=== PATIENT | male | born 1950 | race Caucasian/White ===

== ENCOUNTER 2018-07-13 12:07 | Inpatient (IN) | payer OTHER ==
--- NOTE | 2018-07-13 12:17 | PDOC ---
History of Present Illness <Jazmin Raymond - Last Filed: 07/13/18 14:03> - History of Present Illness Initial Comments: This patient is a 68 year old male, with PMHx of HTN, depression, hypothyroidism ,enlarged prostate, who was BIBA from [facility] for failure to thrive and g- tube replacement. Patient is cachectic and able to say one word and follow simple commands. Allergies: NKA PCP: Davis Sanchez (admits to Brock/Susan) <Karin Adame - Last Filed: 07/13/18 14:14> - General Chief Complaint: G Tube Problem Stated Complaint: G-TUBE REPLACEMENT Time Seen by Provider: 07/13/18 12:17 Past History - Past Medical History Anemia: Yes Seizures: Yes (EPILEPSY) - Suicide/Smoking/Psychosocial Hx Smoking Status: No Smoking History: Never smoked Number of Cigarettes Smoked Daily: 0 <Jazmin Raymond - Last Filed: 07/13/18 14:03> <Karin Adame - Last Filed: 07/13/18 14:14> - Past Medical History Allergies/Adverse Reactions: Allergies Allergy/AdvReac Type Severity Reaction Status Date / Time No Known Allergies Allergy Verified 07/13/18 12:20 Home Medications: Ambulatory Orders Aspirin [ASA] 81 mg PO DAILY 11/15/12 Docusate Sodium [Colace] 200 mg PO HS 11/15/12 Phenytoin Na Extended [Dilantin] 200 mg PO HS 11/15/12 Phenytoin Na Extended [Dilantin] 300 mg PO TID 11/15/12 Review of Systems - Review of Systems Able to Perform ROS?: No (unable to obtain) <Karin Adame - Last Filed: 07/13/18 14:14> *Physical Exam - Vital Signs Last Vital Signs Temp Pulse Resp BP Pulse Ox 98.2 F 80 16 127/68 100 07/13/18 12:07 07/13/18 12:07 07/13/18 12:07 07/13/18 12:07 07/13/18 12:07 - Physical Exam Comments: GENERAL: Awake, alert, cachetic. HEAD: No signs of trauma EYES: PERRLA, EOMI, sclera anicteric, conjunctiva clear ENT: Auricles normal inspection, hearing grossly normal, nares patent, oropharynx clear without exudates. Dry mucosa NECK: Normal ROM, supple, no lymphadenopathy, JVD, or masses LUNGS: Breath sounds equal, clear to auscultation bilaterally. No wheezes, and no crackles HEART: Regular rate and rhythm, normal S1 and S2, no murmurs, rubs or gallops ABDOMEN: Soft, nontender, normoactive bowel sounds. No guarding, no rebound. No masses EXTREMITIES: Normal range of motion, edema to hands & feet. No clubbing or cyanosis. No cords, erythema, or tenderness NEUROLOGICAL: Cranial nerves II through XII grossly intact. SKIN: Warm, Dry, normal turgor, no rashes or lesions noted. <Karin Adame - Last Filed: 07/13/18 14:14> Heart Score/ECG Review - ECG Intrepretation Comment:: 07/13/18 14:03 sinus at 95, nl axis, t wave ivnersions V3-4, abnl ekg, baseline artifact <Jazmin Raymond - Last Filed: 07/13/18 14:03> ED Treatment Course - LABORATORY CBC & Chemistry Diagram: 07/13/18 12:40 07/13/18 12:46 <Jazmin Raymond - Last Filed: 07/13/18 14:03> - LABORATORY CBC & Chemistry Diagram: 07/13/18 12:40 07/13/18 12:46 - ADDITIONAL ORDERS Additional order review: Laboratory Results 07/13/18 07/13/18 13:00 12:46 PT with INR 18.00 H INR 1.52 H PTT (Actin FS) 26.9 Urine Color Erica Urine Appearance Clear Urine pH 5.0 Ur Specific [place] 1.027 Urine Protein 1+ H Urine Glucose (UA) Negative Urine Ketones 1+ H Urine Blood Negative Urine Nitrite Negative Urine Bilirubin Negative Urine Urobilinogen 2.0 Ur Leukocyte Esterase Negative Urine WBC (Auto) 5 Urine RBC (Auto) 2 Ur Epithelial Cells Rare Urine Bacteria Rare Hyaline Casts 48 Urine Mucus Few 07/13/18 12:40 RBC 4.12 MCV 92.9 MCHC 32.3 RDW 14.7 MPV 7.3 L Neutrophils % 93.0 H D Lymphocytes % 1.9 L D Monocytes % 4.9 Eosinophils % 0.0 D Basophils % 0.2 - RADIOLOGY Radiograph Interpretation: Chest X-ray Impression: Segment right lower lobe pneumonia No pleural effusion, or pneumothorax is seen. Reported by: Santi Vieira MD 07/13/18 1319 - Medications Given in the ED: ED Medications Discontinued Medications Generic Name Dose Route Start Last Admin Trade Name Babs PRN Reason Stop Dose Admin Sodium Chloride 1,000 ml 07/13/18 12:39 07/13/18 13:00 Normal Saline - IV 07/13/18 12:40 1,000 ml ONCE ONE Administration <Karin Adame - Last Filed: 07/13/18 14:14> Medical Decision Making - Medical Decision Making 07/13/18 12:52 a/p: 68 yo male sent from [facility] for FTT -pt is cachectic -edema to hands and feet -pt dry mm -pt will follow simple commands -sent for G tube placement -per transfer paperwork - pt is a DNR - requested MOLST be sent from [facility] -pt appears dehydrated, weak -sent by Dr. Sanchez for admission - admits to Dr. Antunez 07/13/18 13:59 pt with elevated wbc and RLL pna will start broad spectrum abx will admit will place consult to dr. finney and dr. hurd will admit to dr. antunez - discussed case with dr. antunez <Jazmin Raymond - Last Filed: 07/13/18 14:03> *DC/Admit/Observation/Transfer - Discharge Dispostion Decision to Admit order: Yes - Attestations Physician Attestion: 07/13/18 14:01 I, Dr. Jazmin Raymond DO, attest that this document has been prepared under my direction and personally reviewed by me in its entirety. I further attest, that it accurately reflects all work, treatment, procedures and medical decision -making performed by me. <Jazmin Raymond - Last Filed: 07/13/18 14:03> - Attestations Scribe Attestion: 07/13/18 13:19 Documentation prepared by Karin Adame, acting as medical administrative technician for Jazmin Raymond DO. <Karin Adame - Last Filed: 07/13/18 14:14> Diagnosis at time of Disposition: Pneumonia, Failure to thrive - Discharge Dispostion Condition at time of disposition: Guarded - Referrals Referrals: Davis Sanchez [Primary Care Provider] - - Patient Instructions - Post Discharge Activity
[2018-07-13 12:20] VITALS: BMI 18.2
[2018-07-13] MEDS ORDERED: SODIUM CHLORIDE 0.9% 1000 ML INFUS.BAG IV ONE ×3 (12:39→15:08)
[2018-07-13 12:52] LABS: BASO % 0.2 % (0-2.0); HEMATOCRIT 38.3 % (35.4-49); HEMOGLOBIN 12.4 GM/dL (11.7-16.9); LYMPH % 1.9 % (8-40); MCHC 32.3 g/dl (32.0-35.9); MEAN CELL VOLUME 92.9 fl (80-96); MEAN PLT VOLUME 7.3 fl (7.5-11.1); MONO % 4.9 % (3.8-10.2); PLATELET COUNT 449 K/MM3 (134-434); RBC 4.12 M/mm3 (4.00-5.60); RDW 14.7 % (11.9-15.9)
[2018-07-13 13:08] LABS: INR 1.52 (0.83-1.09)
[2018-07-13 13:09] LABS: URINE APPEARANCE CLEAR; URINE BILIRUBIN NEGATIVE (<2.0 mg/dL); URINE COLOR AMBER; URINE GLUCOSE (UA) NEGATIVE (NEGATIVE); URINE KETONE 1+ (NEGATIVE); URINE LEUK ESTERASE NEGATIVE (NEGATIVE); URINE NITRITE NEGATIVE (NEGATIVE); URINE PROTEIN 1+ (NEGATIVE)
[2018-07-13 13:11] LABS: ACTIVATED PTT 26.9 SECONDS (25.2-36.5)
[2018-07-13 13:12] LABS: EPI CELLS RARE /HPF (FEW); URINE BACTERIA RARE /hpf (NONE SEEN); URINE HYALINE CAST 48 /lpf; URINE MUCUS FEW
[2018-07-13 13:38] LABS: ALBUMIN 2.2 g/dl (3.4-5.0); ALK PHOS 98 U/L (45-117); ANION GAP 11 MMOL/L (8-16); BILIRUBIN,TOTAL 0.7 mg/dL (0.2-1); BLOOD UREA NITROGEN 10 mg/dL (7-18); CALCIUM 8.4 mg/dL (8.5-10.1); CHLORIDE 109 mmol/L (98-107); CO2 27 mmol/L (21-32); CREATININE 0.7 mg/dL (0.55-1.3); GLUCOSE,RANDOM 116 mg/dL (74-106); MAGNESIUM 2.2 mg/dL (1.8-2.4); POTASSIUM 3.6 mmol/L (3.5-5.1); SGOT/AST 14 U/L (15-37); SGPT/ALT 16 U/L (13-61); SODIUM 146 mmol/L (136-145); TOT PROT 6.3 g/dl (6.4-8.2)
[2018-07-13] MEDS ORDERED: VANCOMYCIN 1 GRAM (PRE-DOCKED) 1,000 MG/250 ML BAG IVPB ONE ×2 (13:59→14:27)
[2018-07-13] MEDS ORDERED: PIPERACILLIN/TAZOB 4.5 GM 4.5 GM in DEXTROSE 5%-WATER 100 ML IVPB ONE (13:59)
--- NOTE | 2018-07-13 14:46 | EKG ---
Test Reason : Blood Pressure : / mmHG Vent. Rate : 095 BPM Atrial Rate : 095 BPM P-R Int : 118 ms QRS Dur : 078 ms QT Int : 414 ms P-R-T Axes : 060 071 102 degrees QTc Int : 520 ms POOR DATA QUALITY, INTERPRETATION MAY BE ADVERSELY AFFECTED NORMAL SINUS RHYTHM T WAVE ABNORMALITY, CONSIDER ANTEROLATERAL ISCHEMIA ABNORMAL ECG WHEN COMPARED WITH ECG OF 15-NOV-2012 22:38, QRS DURATION HAS DECREASED NONSPECIFIC T WAVE ABNORMALITY NOW EVIDENT IN INFERIOR LEADS T WAVE INVERSION NOW EVIDENT IN ANTERIOR LEADS QT HAS LENGTHENED Confirmed by MIKA NEWMAN, ALYSSA ([id number]) on 07/13/2018 2:45:53 PM Referred By: Confirmed By:ALYSSA BRENNAN MD
[2018-07-13] MEDS ORDERED: PIPERACILLIN/TAZOB 4.5 GM 4.5 GM/100 ML BAG IVPB ONE (14:53)
--- NOTE | 2018-07-13 15:37 | HP ---
Admitting History and Physical - Primary Care Physician PCP: Yvonne Gutiérrez - Admission Chief Complaint: FAILURE TO THRIVE/WEIGHT LOSS History of Present Illness: 68 Y/O MALE FROM [facility] SENT IN BY DR LEAL FOR WORKUP AND PEG PLACEMENT FOR POOR APPETITE WEIGHT LOSS, AND CHAXEXIA. H/O HTN, HYPOTHYROID, BPH. History Source: Medical Record Limitations to Obtaining History: Clinical Condition - Past Medical History Cardiovascular: Yes: HTN - Smoking History Smoking history: Never smoked Have you smoked in the past 12 months: No Aproximately how many cigarettes per day: 0 - Alcohol/Substance Use Hx Alcohol Use: No Home Medications - Allergies Allergies/Adverse Reactions: Allergies Allergy/AdvReac Type Severity Reaction Status Date / Time No Known Allergies Allergy Verified 07/13/18 12:20 - Home Medications Home Medications: Ambulatory Orders Amlodipine Besylate [Norvasc -] 10 mg PO DAILY 07/13/18 Cholecalciferol (Vitamin D3) [Vitamin D3] 1,000 unit PO DAILY 07/13/18 Megestrol Acetate Oral Susp [Megace Liquid -] 400 mg PO DAILY 07/13/18 Mirtazapine [Remeron -] 45 mg PO HS 07/13/18 Olanzapine [Zyprexa] 5 mg PO HS 07/13/18 Phenytoin Oral Suspension [Dilantin Oral Suspension 100 MG/4 ML] 200 mg PO BID 07/13/18 Risperidone [Risperdal] 1 mg PO DAILY 07/13/18 Review of Systems - Review of Systems Constitutional: reports: Loss of Appetite, Weakness Eyes: reports: No Symptoms HENT: reports: No Symptoms Neck: reports: No Symptoms Cardiovascular: reports: No Symptoms Respiratory: reports: No Symptoms Gastrointestinal: reports: No Symptoms Genitourinary: reports: Incontinence Musculoskeletal: reports: Muscle Weakness Integumentary: reports: Rash Neurological: reports: Confusion, Pre-Existing Deficit Endocrine: reports: Unexplained Weight Loss Hematology/Lymphatic: reports: Other Psychiatric: reports: Other Physical Examination Vital Signs: Vital Signs Temperature 98.6 F 07/13/18 15:24 Pulse Rate 78 07/13/18 15:24 Respiratory Rate 18 07/13/18 15:24 Blood Pressure 121/73 07/13/18 15:24 O2 Sat by Pulse Oximetry (%) 99 07/13/18 15:24 Constitutional: Yes: Cachectic, Mild Distress Eyes: Yes: WNL HENT: Yes: WNL Neck: Yes: WNL Cardiovascular: Yes: WNL Respiratory: Yes: WNL Gastrointestinal: Yes: WNL Renal/: Yes: Incontinence Musculoskeletal: Yes: Muscle Weakness Extremities: Yes: Other Edema: No Peripheral Pulses WNL: Yes Integumentary: Yes: Rash Wound/Incision: Yes: Clean/Dry, Open to air Neurological: Yes: Pre-Existing Deficit ...Motor Strength: LLE, RLE Psychiatric: Yes: Other Labs: CBC, BMP 07/13/18 12:40 07/13/18 12:46 Problem List - Problems (1) Malnutrition Code(s): E46 - UNSPECIFIED PROTEIN-CALORIE MALNUTRITION (2) Failure to thrive Code(s): [id number] - Assessment/Plan SWALLOW EVAL DIETARY CONSULT WITH CALORIE COUNT GI CONSULT NUTRITIONAAL SUPPLEMENTS CHECK CEA/CA19-9 CHECK TSH/FREE T4 DVT PROPHYLAXIS
[2018-07-13] MEDS ORDERED: PNEUMOC 13-VAL CONJ-DIP CRM/PF 0.5 ML DISP.SYRIN IM ONE (17:37)
[2018-07-13] MEDS ORDERED: ACETAMINOPHEN 325 MG TABLET (FP) PO PRN (17:46)
[2018-07-13] MEDS ORDERED: PT OWN MED DRAWER 7, Y5N ONE (21:40)
[2018-07-13] MEDS: PHENYTOIN 100 MG/4 ML U-D CUP PO SCH ×2 (21:43→22:48)
[2018-07-13] MEDS: MIRTAZAPINE 15 MG TABLET (FP) PO SCH ×2 (21:43→22:48)
[2018-07-13] MEDS ORDERED: PHENYTOIN SODIUM 100 MG/2 ML VIAL IVPB ONE (22:45)
[2018-07-13] MEDS: OLANZapine 5 MG TABLET PO SCH (22:48)
[2018-07-14 07:26] LABS: HEMATOCRIT 30.5 % (35.4-49); HEMOGLOBIN 9.9 GM/dL (11.7-16.9); MCH 30.1 pg (25.7-33.7); MCHC 32.5 g/dl (32.0-35.9); MEAN CELL VOLUME 92.6 fl (80-96); MEAN PLT VOLUME 7.4 fl (7.5-11.1); PLATELET COUNT 338 K/MM3 (134-434); RBC 3.29 M/mm3 (4.00-5.60); RDW 15.1 % (11.9-15.9); WHITE BLOOD COUNT 16.1 K/mm3 (4.0-10.0)
[2018-07-14 08:09] LABS: ALBUMIN 1.9 g/dl (3.4-5.0); ALK PHOS 77 U/L (45-117); ANION GAP 11 MMOL/L (8-16); BILIRUBIN,TOTAL 0.6 mg/dL (0.2-1); BLOOD UREA NITROGEN 7 mg/dL (7-18); CALCIUM 7.7 mg/dL (8.5-10.1); CHLORIDE 114 mmol/L (98-107); CO2 24 mmol/L (21-32); CREATININE 0.4 mg/dL (0.55-1.3); GLUCOSE,RANDOM 71 mg/dL (74-106); SGOT/AST 11 U/L (15-37); SGPT/ALT 12 U/L (13-61); SODIUM 149 mmol/L (136-145); TOT PROT 5.1 g/dl (6.4-8.2)
[2018-07-14] MEDS: PIPERACILLIN/TAZOB 3.375 GM 3.375 GM in DEXTROSE 5%-WATER - 50 ML IVPB SCH ×2 (08:33→16:34)
[2018-07-14 08:50] LABS: POTASSIUM 2.8 mmol/L (3.5-5.1)
[2018-07-14] MEDS ORDERED: PHENYTOIN 100 MG/4 ML U-D CUP PO SCH (10:00)
[2018-07-14] MEDS ORDERED: PHENYTOIN ORAL SUSP 125 MG/5 ML PO SCH (10:00)
[2018-07-14] MEDS ORDERED: PT OWN MED DRAWER 7, Y5N ONE ×3 (10:02→20:57)
[2018-07-14] MEDS: amLODIPine BESYLATE 5 MG TABLET (FP) PO SCH (10:11)
[2018-07-14] MEDS: risperiDONE 1 MG TABLET (FP) PO SCH (10:12)
--- NOTE | 2018-07-14 10:13 | PN ---
Progress Note, Physician Chief Complaint: AWAKE WITH APHASIA NO ACUTE DISTRESS NOT EATING OR DRINKING - Current Medication List Current Medications: Active Medications Acetaminophen (Tylenol -) 650 mg PO Q6H PRN PRN Reason: PAIN OR FEVER Amlodipine Besylate (Norvasc -) 5 mg PO DAILY [facility] Mirtazapine (Remeron -) 45 mg PO HS [facility] Last Admin: 07/13/18 22:48 Dose: Not Given Olanzapine (Zyprexa -) 5 mg PO HS [facility] Last Admin: 07/13/18 22:48 Dose: Not Given Phenytoin Sodium (Dilantin Oral Suspension -) 200 mg PO BID [facility] Risperidone (Risperdal -) 1 mg PO DAILY [facility] - Objective Vital Signs: Vital Signs Temperature 97.5 F L 07/14/18 06:00 Pulse Rate 83 07/14/18 06:00 Respiratory Rate 18 07/14/18 06:00 Blood Pressure 114/47 L 07/14/18 06:00 O2 Sat by Pulse Oximetry (%) 99 07/13/18 21:00 Constitutional: Yes: No Distress, Cachectic Eyes: Yes: WNL HENT: Yes: WNL Neck: Yes: WNL Cardiovascular: Yes: WNL Respiratory: Yes: WNL Gastrointestinal: Yes: Other Genitourinary: Yes: Incontinence Musculoskeletal: Yes: Joint Stiffness, Muscle Weakness Extremities: Yes: Deformity Edema: No Peripheral Pulses WNL: Yes Integumentary: Yes: Rash Wound/Incision: Yes: Open to air Neurological: Yes: Dysarthria, Pre-Existing Deficit ...Motor Strength: LLE, RLE Psychiatric: Yes: Other Labs: CBC, BMP 07/14/18 06:00 07/14/18 06:00 INR, PTT INR 1.52 (0.83-1.09) H 07/13/18 12:46 Problem List - Problems (1) Malnutrition Code(s): E46 - UNSPECIFIED PROTEIN-CALORIE MALNUTRITION (2) Failure to thrive Code(s): [id number] - Assessment/Plan I DISCUSSED WITH HIS PMD THIS MORNING FROM [facility] LEAL STATES THE FAMILY WANTS THE G-TUBE PATIENT IS MEDICALLY CLEAR FOR PEG PLACEMENT WILL DISCUSS WITH GI OR INTERVENTIONAL RADIOLOGY CHANGE PHENYTOIN TO IV IF CONTINUES TO NOT EAT IVF DVT PROPHYLAXIS
[2018-07-14] MEDS: PHENYTOIN SODIUM 100 MG/2 ML VIAL IVPB SCH ×2 (11:14→21:16)
[2018-07-14] MEDS: KCL 10 MEQ IVPB 10 MEQ/100 ML INFUS.BAG IVPB SCH ×3 (11:26→14:56)
--- NOTE | 2018-07-14 12:43 | CONSULT ---
Admitting History and Physical - Primary Care Physician PCP: Yvonne Gutiérrez - Admission History of Present Illness: 68 yo [facility] resident, admitted fror w/u and PEG placement. Plan is for PEG insertion, agreed upon by family per PMD. Per transfer summary, pt was on a regular diet/thin liquids at [facility]. This is my first consult with this pt. RLL infiltrate. Ensure and magic cup ordered? Selected Entries 07/14/18 07/14/18 06:00 10:38 Breakfast NPO Temperature 97.5 F L Laboratory Tests 07/13/18 07/14/18 12:40 06:00 WBC 26.0 H 16.1 H History Source: Medical Record Limitations to Obtaining History: Clinical Condition - Past Medical History Cardiovascular: Yes: HTN - Advance Directives Advance Directives: Yes: DNR - Smoking History Smoking history: Never smoked Have you smoked in the past 12 months: No Aproximately how many cigarettes per day: 0 - Alcohol/Substance Use Hx Alcohol Use: No History - Admission Reason For Visit: PNEUMONIA - Diagnostics X-ray: Report Reviewed - General Attention: Distractible Speech Evaluation - Communication Primary Language: TANZANIAN Communication: Yes: Non-Communicable - Language/Verbal Expression Functional Communication Status: Yes: Severely Impaired - Swallow Evaluation/Bedside Assessment Current Nutritional Intake: NPO (Ensure/magic cup ordered? npo documented. No po given per nursing.) Oral Secretions: Yes: WFL Recommendations - Speech Evaluation, Impression/Plan Impression: Emaciated. Cachectic.Non communicative. Admitted for PEG insertion. - Dysphagia Impressions/Plan Swallowing Skills: Impaired Dysphagia Impressions: Profound Impairment, Suspect Aspiration *Silent aspiration: cannot be R/O at bedside Recommendations: Other (PEG planned. Suggest MBS in future, if pt becomes stronger, for swallowing assessment and possible po trials.)
--- NOTE | 2018-07-14 14:38 | CON.ID ---
Consult Consult Specialty:: infectious diseases Reason for Consultation:: leukocytosis,failure to thrive - History of Present Illness History of Present Illness: patient non verbal unable to give history which is obtained form the charts admitted for failure to thrive and peg tube replacement. patient on work up has leukocytosis history as follows taken from the charts This patient is a 68 year old male, with PMHx of HTN, depression, hypothyroidism ,enlarged prostate, who was BIBA from [facility] for failure to thrive and g- tube replacement. Patient is cachectic and able to say one word and follow simple commands. all other work up ahs been send patient received zosyn in the ER - History Source History Provided By: Medical Record Limitations to Obtaining History: Clinical Condition - Past Medical History Cardio/Vascular: Yes: HTN - Alcohol/Substance Use Hx Alcohol Use: No - Smoking History Smoking history: Never smoked Have you smoked in the past 12 months: No Aproximately how many cigarettes per day: 0 Home Medications - Allergies Allergies/Adverse Reactions: Allergies Allergy/AdvReac Type Severity Reaction Status Date / Time No Known Allergies Allergy Verified 07/13/18 12:20 - Home Medications Home Medications: Ambulatory Orders Amlodipine Besylate [Norvasc -] 10 mg PO DAILY 07/13/18 Cholecalciferol (Vitamin D3) [Vitamin D3] 1,000 unit PO DAILY 07/13/18 Megestrol Acetate Oral Susp [Megace Liquid -] 400 mg PO DAILY 07/13/18 Mirtazapine [Remeron -] 45 mg PO HS 07/13/18 Olanzapine [Zyprexa] 5 mg PO HS 07/13/18 Phenytoin Oral Suspension [Dilantin Oral Suspension 100 MG/4 ML] 200 mg PO BID 07/13/18 Risperidone [Risperdal] 1 mg PO DAILY 07/13/18 Review of Systems Unable to obtain ROS, reason: unable to obtain Physical Exam Vital Signs: Vital Signs Temperature 97.5 F L 07/14/18 06:00 Pulse Rate 83 07/14/18 06:00 Respiratory Rate 18 07/14/18 06:00 Blood Pressure 114/47 L 07/14/18 06:00 O2 Sat by Pulse Oximetry (%) 99 07/13/18 21:00 Constitutional: Yes: No Distress, Calm HENT: Yes: Atraumatic, Normocephalic Cardiovascular: Yes: Regular Rate and Rhythm Respiratory: Yes: Regular, Poor Air Entry (bases) Gastrointestinal: Yes: Normal Bowel Sounds, Soft Musculoskeletal: Yes: WNL Extremities: Yes: Other (contracted) Neurological: Yes: Alert, Other Psychiatric: Yes: Other Labs: CBC, BMP 07/14/18 06:00 07/14/18 06:00 Imaging - Results Chest X-ray: Report Reviewed, Image Reviewed Assessment/Plan Problem List - Problems (1) Malnutrition Code(s): E46 - UNSPECIFIED PROTEIN-CALORIE MALNUTRITION (2) Failure to thrive Code(s): [id number] - leukocytosis plan will start patient on zosyn monitor wbc hydration rest as per the team
[2018-07-14] MEDS ORDERED: PIPERACILLIN/TAZOBACTAM 3.375 GM VIAL IVPB ONE ×2 (16:24→18:40)
[2018-07-14] MEDS ORDERED: DEXTROSE 5%-WATER - 50 ML IVPB ONE ×2 (16:24→18:41)
[2018-07-14 19:40] LABS: ANION GAP 8 MMOL/L (8-16); BLOOD UREA NITROGEN 6 mg/dL (7-18); CALCIUM 7.9 mg/dL (8.5-10.1); CHLORIDE 116 mmol/L (98-107); CO2 25 mmol/L (21-32); CREATININE 0.4 mg/dL (0.55-1.3); GLUCOSE,RANDOM 64 mg/dL (74-106); POTASSIUM 3.4 mmol/L (3.5-5.1); SODIUM 149 mmol/L (136-145)
[2018-07-14] MEDS ORDERED: KCL 10 MEQ IVPB 10 MEQ/100 ML INFUS.BAG IVPB SCH (20:30)
[2018-07-14] MEDS: MIRTAZAPINE 15 MG TABLET (FP) PO SCH (21:17)
[2018-07-14] MEDS: OLANZapine 5 MG TABLET PO SCH (22:55)
[2018-07-15] MEDS ORDERED: DEXTROSE 5%-WATER - 50 ML IVPB ONE ×3 (01:19→18:25)
[2018-07-15] MEDS ORDERED: PIPERACILLIN/TAZOBACTAM 3.375 GM VIAL IVPB ONE ×3 (01:19→18:25)
[2018-07-15] MEDS: PIPERACILLIN/TAZOB 3.375 GM 3.375 GM in DEXTROSE 5%-WATER - 50 ML IVPB SCH ×3 (01:46→18:25)
[2018-07-15 09:28] LABS: ANION GAP 10 MMOL/L (8-16); BLOOD UREA NITROGEN 6 mg/dL (7-18); CALCIUM 7.5 mg/dL (8.5-10.1); CHLORIDE 113 mmol/L (98-107); CO2 23 mmol/L (21-32); CREATININE 0.4 mg/dL (0.55-1.3); GLUCOSE,RANDOM 70 mg/dL (74-106); MAGNESIUM 2.1 mg/dL (1.8-2.4); POTASSIUM 3.2 mmol/L (3.5-5.1); SODIUM 146 mmol/L (136-145)
[2018-07-15] MEDS ORDERED: PT OWN MED DRAWER 7, Y5N ONE ×2 (09:49→18:33)
[2018-07-15] MEDS: amLODIPine BESYLATE 5 MG TABLET (FP) PO SCH (10:02)
[2018-07-15] MEDS: PHENYTOIN SODIUM 100 MG/2 ML VIAL IVPB SCH ×2 (10:02→22:47)
[2018-07-15] MEDS: risperiDONE 1 MG TABLET (FP) PO SCH (10:03)
[2018-07-15] MEDS ORDERED: DEXTROSE 5%-NORMAL SALINE 1,000 ML IV SCH (11:15)
--- NOTE | 2018-07-15 11:27 | PN ---
Progress Note, Physician History of Present Illness: patient stable no gross changes awaiting for peg tube - Current Medication List Current Medications: Active Medications Acetaminophen (Tylenol -) 650 mg PO Q6H PRN PRN Reason: PAIN OR FEVER Amlodipine Besylate (Norvasc -) 5 mg PO DAILY [facility] Last Admin: 07/15/18 10:02 Dose: Not Given Piperacillin Sod/Tazobactam (Sod 3.375 gm/ Dextrose) 50 mls @ 100 mls/hr IVPB Q8H-IV [facility]; Protocol Last Admin: 07/15/18 10:03 Dose: 100 mls/hr Dextrose/Sodium Chloride (D5-Ns -) 1,000 mls @ 100 mls/hr IV ASDIR [facility] Mirtazapine (Remeron -) 45 mg PO HS [facility] Last Admin: 07/14/18 21:17 Dose: 45 mg Olanzapine (Zyprexa -) 5 mg PO HS [facility] Last Admin: 07/14/18 22:55 Dose: Not Given Phenytoin Sodium (Dilantin Injection -) 100 mg IVPB BID [facility] Last Admin: 07/15/18 10:02 Dose: 100 mg Risperidone (Risperdal -) 1 mg PO DAILY [facility] Last Admin: 07/15/18 10:03 Dose: Not Given - Objective Vital Signs: Vital Signs Temperature 98.3 F 07/15/18 06:38 Pulse Rate 53 L 07/15/18 06:38 Respiratory Rate 18 07/15/18 06:38 Blood Pressure 124/70 07/15/18 06:38 O2 Sat by Pulse Oximetry (%) 99 07/14/18 21:00 Constitutional: Yes: No Distress, Calm, Other (failure to thrive) Cardiovascular: Yes: Regular Rate and Rhythm Respiratory: Yes: Regular, Poor Air Entry (bases) Gastrointestinal: Yes: Normal Bowel Sounds, Soft Musculoskeletal: Yes: WNL Extremities: Yes: WNL Neurological: Yes: Other (non verbal) Psychiatric: Yes: Other Labs: CBC, BMP 07/14/18 06:00 07/15/18 07:40 INR, PTT INR 1.52 (0.83-1.09) H 07/13/18 12:46 Assessment/Plan Problem List - Problems (1) Malnutrition Code(s): E46 - UNSPECIFIED PROTEIN-CALORIE MALNUTRITION (2) Failure to thrive Code(s): [id number] - leukocytosis plan will send a cbc today ct abx for now peg tube rest as per the team
[2018-07-15 11:45] LABS: HEMATOCRIT 31.4 % (35.4-49); HEMOGLOBIN 10.4 GM/dL (11.7-16.9); MCH 30.7 pg (25.7-33.7); MCHC 33.2 g/dl (32.0-35.9); MEAN CELL VOLUME 92.5 fl (80-96); PLATELET COUNT 364 K/MM3 (134-434); RBC 3.39 M/mm3 (4.00-5.60); RDW 14.8 % (11.9-15.9); WHITE BLOOD COUNT 11.8 K/mm3 (4.0-10.0)
--- NOTE | 2018-07-15 14:23 | PN ---
Progress Note, Physician Chief Complaint: AWAKE CONFUSED NAD - Current Medication List Current Medications: Active Medications Acetaminophen (Tylenol -) 650 mg PO Q6H PRN PRN Reason: PAIN OR FEVER Amlodipine Besylate (Norvasc -) 5 mg PO DAILY [facility] Last Admin: 07/15/18 10:02 Dose: Not Given Piperacillin Sod/Tazobactam (Sod 3.375 gm/ Dextrose) 50 mls @ 100 mls/hr IVPB Q8H-IV [facility]; Protocol Last Admin: 07/15/18 10:03 Dose: 100 mls/hr Dextrose/Sodium Chloride (D5-Ns -) 1,000 mls @ 100 mls/hr IV [facility]IR [facility] Last Admin: 07/15/18 14:21 Dose: 100 mls/hr Potassium Chloride (Potassium Chloride 10 Meq Premix Ivpb -) 10 meq in 100 mls @ 100 mls/hr IVPB Q60M [facility] Stop: 07/15/18 16:29 Mirtazapine (Remeron -) 45 mg PO HS [facility] Last Admin: 07/14/18 21:17 Dose: 45 mg Olanzapine (Zyprexa -) 5 mg PO HS [facility] Last Admin: 07/14/18 22:55 Dose: Not Given Phenytoin Sodium (Dilantin Injection -) 100 mg IVPB BID [facility] Last Admin: 07/15/18 10:02 Dose: 100 mg Risperidone (Risperdal -) 1 mg PO DAILY [facility] Last Admin: 07/15/18 10:03 Dose: Not Given - Objective Vital Signs: Vital Signs Temperature 98.3 F 07/15/18 06:38 Pulse Rate 53 L 07/15/18 06:38 Respiratory Rate 18 07/15/18 06:38 Blood Pressure 124/70 07/15/18 06:38 O2 Sat by Pulse Oximetry (%) 99 07/14/18 21:00 Constitutional: Yes: No Distress Eyes: Yes: WNL HENT: Yes: WNL Neck: Yes: WNL Cardiovascular: Yes: WNL Respiratory: Yes: WNL Gastrointestinal: Yes: WNL Genitourinary: Yes: Incontinence Musculoskeletal: Yes: Muscle Weakness Extremities: Yes: Other Edema: No Peripheral Pulses WNL: Yes Integumentary: Yes: Rash Wound/Incision: Yes: Dressing Dry and Intact Neurological: Yes: Confusion, Pre-Existing Deficit ...Motor Strength: LLE Psychiatric: Yes: Other Labs: CBC, BMP 07/15/18 11:35 07/15/18 07:40 INR, PTT INR 1.52 (0.83-1.09) H 07/13/18 12:46 Problem List - Problems (1) Malnutrition Code(s): E46 - UNSPECIFIED PROTEIN-CALORIE MALNUTRITION (2) Failure to thrive Code(s): [id number] - Assessment/Plan I DISCUSSED WITH HIS PMD THIS YESTERDAY FROM [facility] DR IDRIS LEAL STATES THE FAMILY WANTS THE G-TUBE PATIENT IS MEDICALLY CLEAR FOR PEG PLACEMENT WILL DISCUSS WITH GI OR INTERVENTIONAL RADIOLOGY CHANGE PHENYTOIN TO IV IF CONTINUES TO NOT EAT IVF DVT PROPHYLAXIS
[2018-07-15] MEDS ORDERED: POTASSIUM CHLORIDE 10 MEQ in DEXTROSE 5%-NORMAL SALINE 1,000 ML IVPB SCH (14:30)
[2018-07-15] MEDS: KCL 10 MEQ IVPB 10 MEQ/100 ML INFUS.BAG IVPB SCH ×2 (18:30→20:17)
--- NOTE | 2018-07-15 20:50 | CONSULT ---
Consult Consult Specialty:: Nephrology Reason for Consultation:: hypernatremia - History of Present Illness Chief Complaint: sent in for peg eval History of Present Illness: Pt is a 68 year old male with pmhx of HTN, depression, and hypothyroidism. He was brought to the hospital for failure to thrive and evaluation for possible G- tube placement. He is unable to give history. It is not clear for how long he has not eaten. He is lethargic and not answering questions. He was found to be hypernatremic and I was called to evaluate him. - History Source History Provided By: Family Member - Past Medical History Cardio/Vascular: Yes: HTN Psych: Yes: Depression Endocrine: Yes: Hypothyroidism - Alcohol/Substance Use Hx Alcohol Use: No - Smoking History Smoking history: Never smoked Have you smoked in the past 12 months: No Aproximately how many cigarettes per day: 0 Home Medications - Allergies Allergies/Adverse Reactions: Allergies Allergy/AdvReac Type Severity Reaction Status Date / Time No Known Allergies Allergy Verified 07/13/18 12:20 - Home Medications Home Medications: Ambulatory Orders Amlodipine Besylate [Norvasc -] 10 mg PO DAILY 07/13/18 Cholecalciferol (Vitamin D3) [Vitamin D3] 1,000 unit PO DAILY 07/13/18 Megestrol Acetate Oral Susp [Megace Liquid -] 400 mg PO DAILY 07/13/18 Mirtazapine [Remeron -] 45 mg PO HS 07/13/18 Olanzapine [Zyprexa] 5 mg PO HS 07/13/18 Phenytoin Oral Suspension [Dilantin Oral Suspension 100 MG/4 ML] 200 mg PO BID 07/13/18 Risperidone [Risperdal] 1 mg PO DAILY 07/13/18 Family Disease History - Family Disease History Family History: Unable to Obtain Review of Systems Unable to obtain ROS, reason: pt lethargic Physical Exam Vital Signs: Vital Signs Temperature 98.3 F 07/15/18 15:27 Pulse Rate 58 L 07/15/18 15:27 Respiratory Rate 18 07/15/18 15:27 Blood Pressure 119/71 07/15/18 15:27 O2 Sat by Pulse Oximetry (%) 99 07/15/18 09:00 Constitutional: Yes: Calm, Cachectic Eyes: Yes: Conjunctiva Clear HENT: Yes: Atraumatic Neck: Yes: Supple Cardiovascular: Yes: S1, S2 Respiratory: Yes: CTA Bilaterally Gastrointestinal: Yes: Soft Renal/: Yes: Incontinence Musculoskeletal: Yes: Muscle Weakness Edema: No Neurological: Yes: Lethargy Labs: CBC, BMP 07/15/18 11:35 07/15/18 07:40 Laboratory Tests 07/13/18 07/14/18 07/14/18 12:46 06:00 17:45 WBC Hgb Sodium 146 H 149 H 149 H Potassium Chloride Carbon Dioxide Magnesium Albumin 1.9 L 07/15/18 07/15/18 07:40 11:35 WBC 11.8 H Hgb 10.4 L Sodium 146 H Potassium 3.2 L Chloride 113 H Carbon Dioxide 23 Magnesium 2.1 Albumin Imaging - Results Chest X-ray: Report Reviewed Problem List - Problems (1) Hypernatremia Code(s): E87.0 - HYPEROSMOLALITY AND HYPERNATREMIA (2) Failure to thrive Code(s): ABG1795 - (3) Malnutrition Code(s): E46 - UNSPECIFIED PROTEIN-CALORIE MALNUTRITION (4) Pneumonia Code(s): J18.9 - PNEUMONIA, UNSPECIFIED ORGANISM Assessment/Plan Current Medications Generic Name Dose Route Start Last Admin Trade Name Freq PRN Reason Stop Dose Admin Acetaminophen 650 mg 07/13/18 17:46 Tylenol - PO Q6H PRN PAIN OR FEVER Amlodipine Besylate 5 mg 07/14/18 10:00 07/15/18 10:02 Norvasc - PO Not Given DAILY [facility] Piperacillin Sod/Tazobactam 50 mls @ 100 mls/hr 07/14/18 14:45 07/15/18 18:25 Sod 3.375 gm/ Dextrose IVPB 100 mls/hr Q8H-IV [facility] Administration Protocol Potassium Chloride 10 meq/ 1,005 mls @ 83 mls/hr 07/15/18 14:30 07/15/18 18: 44 Dextrose/Sodium Chloride IVPB 83 mls/hr Q12H [facility] Administration Mirtazapine 45 mg 07/13/18 22:00 07/14/18 21:17 Remeron - PO 45 mg HS [facility] Administration Olanzapine 5 mg 07/13/18 22:00 07/14/18 22:55 Zyprexa - PO Not Given HS [facility] Phenytoin Sodium 100 mg 07/14/18 10:30 07/15/18 10:02 Dilantin Injection - IVPB 100 mg BID [facility] Administration Risperidone 1 mg 07/14/18 10:00 07/15/18 10:03 Risperdal - PO Not Given DAILY [facility] Laboratory Tests 07/14/18 06:00 TSH 0.68 D Impression 1. hypernatremia 2. hypothyroidism 3. failure to thrive 4. malnutrition 5. depression 6. htn 7. hypokalemia Plan - pt has a free water deficit of about 1.17 liters - will change fluids to a hypotonic solution, change from ns to d51/2ns with potassium - repeat labs in am - monitor sodium - may benefit from clinimx, evaluate after lytes are more stable - will follow
[2018-07-15] MEDS: D5-1/2NS+20 MEQ KCL - 20 MEQ/1,000 ML INFUS.BAG IV SCH (22:43)
[2018-07-15] MEDS: OLANZapine 5 MG TABLET PO SCH ×2 (22:53→23:02)
[2018-07-15] MEDS: MIRTAZAPINE 15 MG TABLET (FP) PO SCH ×2 (22:53→23:01)
[2018-07-16] MEDS ORDERED: PIPERACILLIN/TAZOBACTAM 3.375 GM VIAL IVPB ONE (02:00)
[2018-07-16] MEDS ORDERED: DEXTROSE 5%-WATER - 50 ML IVPB ONE (02:01)
[2018-07-16] MEDS: PIPERACILLIN/TAZOB 3.375 GM 3.375 GM in DEXTROSE 5%-WATER - 50 ML IVPB SCH ×2 (02:16→10:43)
[2018-07-16 08:42] LABS: HEMATOCRIT 33.1 % (35.4-49); HEMOGLOBIN 10.7 GM/dL (11.7-16.9); MCHC 32.4 g/dl (32.0-35.9); MEAN CELL VOLUME 92.5 fl (80-96); MEAN PLT VOLUME 8.1 fl (7.5-11.1); PLATELET COUNT 284 K/MM3 (134-434); RBC 3.58 M/mm3 (4.00-5.60)
[2018-07-16 09:11] LABS: ALBUMIN 1.7 g/dl (3.4-5.0); ALK PHOS 70 U/L (45-117); ANION GAP 7 MMOL/L (8-16); BILIRUBIN,TOTAL 0.5 mg/dL (0.2-1); BLOOD UREA NITROGEN 3 mg/dL (7-18); CALCIUM 7.4 mg/dL (8.5-10.1); CHLORIDE 112 mmol/L (98-107); CO2 27 mmol/L (21-32); CREATININE 0.4 mg/dL (0.55-1.3); GLUCOSE,RANDOM 98 mg/dL (74-106); POTASSIUM 3.1 mmol/L (3.5-5.1); SGOT/AST 11 U/L (15-37); SGPT/ALT 11 U/L (13-61); SODIUM 146 mmol/L (136-145)
--- NOTE | 2018-07-16 10:31 | PN ---
Progress Note, Physician Chief Complaint: ON THE PHONE WITH YVETTE THE HCP I DISCUSSED THE GTUBE PLACEMENT AND THE FAMILY IS AWARE OF THIS AND THEY ARE IN FULL AGREEMENT TO HAVE GTUBE PLACED. HCP UNDERSTANDS THE RISKS AND BENEFITS. - Current Medication List Current Medications: Active Medications Acetaminophen (Tylenol -) 650 mg PO Q6H PRN PRN Reason: PAIN OR FEVER Amlodipine Besylate (Norvasc -) 5 mg PO DAILY [facility] Last Admin: 07/15/18 10:02 Dose: Not Given Piperacillin Sod/Tazobactam (Sod 3.375 gm/ Dextrose) 50 mls @ 100 mls/hr IVPB Q8H-IV [facility]; Protocol Last Admin: 07/16/18 02:16 Dose: 100 mls/hr Potassium Chloride/Dextrose/Sod Cl (D5-1/2ns+20 Meq Kcl -) 20 meq in 1,000 mls @ 83 mls/hr IV ASDIR [facility] Last Admin: 07/15/18 22:43 Dose: 83 mls/hr Mirtazapine (Remeron -) 45 mg PO HS [facility] Last Admin: 07/15/18 23:01 Dose: Not Given Olanzapine (Zyprexa -) 5 mg PO HS [facility] Last Admin: 07/15/18 23:02 Dose: Not Given Phenytoin Sodium (Dilantin Injection -) 100 mg IVPB BID [facility] Last Admin: 07/15/18 22:47 Dose: 100 mg Risperidone (Risperdal -) 1 mg PO DAILY [facility] Last Admin: 07/15/18 10:03 Dose: Not Given - Objective Vital Signs: Vital Signs Temperature 98.1 F 07/16/18 06:00 Pulse Rate 62 07/16/18 06:00 Respiratory Rate 18 07/16/18 06:00 Blood Pressure 128/70 07/16/18 06:00 O2 Sat by Pulse Oximetry (%) 99 07/15/18 21:00 Constitutional: Yes: Mild Distress Eyes: Yes: Other HENT: Yes: WNL Neck: Yes: WNL Cardiovascular: Yes: WNL Respiratory: Yes: CTA Bilaterally, On Nasal O2 Gastrointestinal: Yes: Soft, Other Genitourinary: Yes: Incontinence Musculoskeletal: Yes: Muscle Weakness Extremities: Yes: Other Edema: No Peripheral Pulses WNL: Yes Integumentary: Yes: WNL Wound/Incision: Yes: Dressing Dry and Intact Neurological: Yes: Pre-Existing Deficit ...Motor Strength: LLE, RLE Psychiatric: Yes: Other Labs: CBC, BMP 07/16/18 07:00 07/16/18 07:00 INR, PTT INR 1.52 (0.83-1.09) H 07/13/18 12:46 Problem List - Problems (1) Malnutrition Code(s): E46 - UNSPECIFIED PROTEIN-CALORIE MALNUTRITION (2) Failure to thrive Code(s): [id number] - Assessment/Plan HCP IN AGREEMENTWITH GTUBE PLACEMENT WITNESSED BY NURSE WHALEY IVF REPLETE KCL OOB TO CHAIR TOLERATED DVT PROPHYLAXIS
--- NOTE | 2018-07-16 10:38 | PN ---
Progress Note, Physician History of Present Illness: patient stable no issues patient for peg tube placement wbc has normalized - Current Medication List Current Medications: Active Medications Acetaminophen (Tylenol -) 650 mg PO Q6H PRN PRN Reason: PAIN OR FEVER Amlodipine Besylate (Norvasc -) 5 mg PO DAILY [facility] Last Admin: 07/15/18 10:02 Dose: Not Given Potassium Chloride/Dextrose/Sod Cl (D5-1/2ns+20 Meq Kcl -) 20 meq in 1,000 mls @ 83 mls/hr IV ASDIR [facility] Last Admin: 07/15/18 22:43 Dose: 83 mls/hr Potassium Chloride (Potassium Chloride 10 Meq Premix Ivpb -) 10 meq in 100 mls @ 100 mls/hr IVPB Q60M [facility] Stop: 07/16/18 13:44 Mirtazapine (Remeron -) 45 mg PO HS [facility] Last Admin: 07/15/18 23:01 Dose: Not Given Olanzapine (Zyprexa -) 5 mg PO HS [facility] Last Admin: 07/15/18 23:02 Dose: Not Given Phenytoin Sodium (Dilantin Injection -) 100 mg IVPB BID [facility] Last Admin: 07/15/18 22:47 Dose: 100 mg Risperidone (Risperdal -) 1 mg PO DAILY [facility] Last Admin: 07/15/18 10:03 Dose: Not Given - Objective Vital Signs: Vital Signs Temperature 98.1 F 07/16/18 06:00 Pulse Rate 62 07/16/18 06:00 Respiratory Rate 18 07/16/18 06:00 Blood Pressure 128/70 07/16/18 06:00 O2 Sat by Pulse Oximetry (%) 99 07/15/18 21:00 Constitutional: Yes: No Distress, Calm Cardiovascular: Yes: Regular Rate and Rhythm Respiratory: Yes: Regular, CTA Bilaterally Gastrointestinal: Yes: Normal Bowel Sounds, Soft Musculoskeletal: Yes: WNL Extremities: Yes: WNL Neurological: Yes: Alert, Other Labs: CBC, BMP 07/16/18 07:00 07/16/18 07:00 INR, PTT INR 1.52 (0.83-1.09) H 07/13/18 12:46 Assessment/Plan Problem List - Problems (1) Malnutrition Code(s): E46 - UNSPECIFIED PROTEIN-CALORIE MALNUTRITION (2) Failure to thrive Code(s): [id number] - leukocytosis plan will hold of on abx monitor without abx for now g tube placement rest as per the team
[2018-07-16] MEDS: amLODIPine BESYLATE 5 MG TABLET (FP) PO SCH (10:44)
[2018-07-16] MEDS: risperiDONE 1 MG TABLET (FP) PO SCH (10:45)
[2018-07-16] MEDS ORDERED: PT OWN MED DRAWER 7, Y5N ONE ×3 (10:52→21:39)
[2018-07-16] MEDS: PHENYTOIN SODIUM 100 MG/2 ML VIAL IVPB SCH ×2 (10:53→21:44)
[2018-07-16] MEDS: KCL 10 MEQ IVPB 10 MEQ/100 ML INFUS.BAG IVPB SCH ×3 (11:29→15:18)
[2018-07-16] MEDS ORDERED: MINERAL OIL 30 ML UNIT-DOSE CUP PO PRN (12:55)
[2018-07-16] MEDS: D5-1/2NS+20 MEQ KCL - 20 MEQ/1,000 ML INFUS.BAG IV SCH (15:19)
--- NOTE | 2018-07-16 18:29 | PN ---
Progress Note (short form) - Note Progress Note: covering dr hou Problems 1. hypernatremia 2. hypothyroidism 3. failure to thrive 4. malnutrition 5. depression 6. htn 7. hypokalemia Current Medications Acetaminophen (Tylenol -) 650 mg PO Q6H PRN PRN Reason: PAIN OR FEVER Amlodipine Besylate (Norvasc -) 5 mg PO DAILY [facility] Last Admin: 07/16/18 10:44 Dose: Not Given Potassium Chloride/Dextrose/Sod Cl (D5-1/2ns+20 Meq Kcl -) 20 meq in 1,000 mls @ 83 mls/hr IV ASDIR [facility] Last Admin: 07/16/18 15:19 Dose: 83 mls/hr Influenza Virus Vaccine Quadrival (Flulaval Quad [id number]) 60 mcg IM .ONCE ONE Stop: 07/16/18 20:01 Mineral Oil (Mineral Oil -) 0 ml PO TID PRN PRN Reason: DRYNESS Last Admin: 07/16/18 15:08 Dose: 30 ml Mirtazapine (Remeron -) 45 mg PO HS [facility] Last Admin: 07/15/18 23:01 Dose: Not Given Olanzapine (Zyprexa -) 5 mg PO HS [facility] Last Admin: 07/15/18 23:02 Dose: Not Given Phenytoin Sodium (Dilantin Injection -) 100 mg IVPB BID [facility] Last Admin: 07/16/18 10:53 Dose: 100 mg Risperidone (Risperdal -) 1 mg PO DAILY [facility] Last Admin: 07/16/18 10:45 Dose: Not Given Last Vital Signs Temp Pulse Resp BP Pulse Ox 98.2 F 71 18 126/74 99 07/16/18 15:35 07/16/18 15:35 07/16/18 15:35 07/16/18 15:35 07/16/18 09:00 CBC, BMP 07/16/18 07:00 07/16/18 07:00 IMP Hypernatremia- improving but progress is slow Hypokalemia - total body depleted from poor intake riders given earlier Plan follow serum chems tomot=rrow
[2018-07-16] MEDS ORDERED: FLU VACCINE QUAD 60 MCG/0.5 ML (MDV 18-19) IM ONE (20:00)
[2018-07-16] MEDS: MIRTAZAPINE 15 MG TABLET (FP) PO SCH (21:36)
[2018-07-16] MEDS: OLANZapine 5 MG TABLET PO SCH (21:36)
[2018-07-17] MEDS ORDERED: MINERAL OIL 30 ML UNIT-DOSE CUP PO PRN (01:28)
[2018-07-17] MEDS: D5-1/2NS+20 MEQ KCL - 20 MEQ/1,000 ML INFUS.BAG IV SCH (06:16)
[2018-07-17 08:20] LABS: ANION GAP 4 MMOL/L (8-16); CALCIUM 7.3 mg/dL (8.5-10.1); CHLORIDE 106 mmol/L (98-107); CO2 28 mmol/L (21-32); CREATININE 0.3 mg/dL (0.55-1.3); GLUCOSE,RANDOM 96 mg/dL (74-106); POTASSIUM 3.7 mmol/L (3.5-5.1); SODIUM 138 mmol/L (136-145)
[2018-07-17 08:22] LABS: BLOOD UREA NITROGEN 2 mg/dL (7-18)
[2018-07-17] MEDS ORDERED: PT OWN MED DRAWER 7, Y5N ONE ×2 (10:06→22:37)
[2018-07-17] MEDS: PHENYTOIN SODIUM 100 MG/2 ML VIAL IVPB SCH ×2 (10:16→22:40)
[2018-07-17] MEDS: amLODIPine BESYLATE 5 MG TABLET (FP) PO SCH (10:17)
[2018-07-17] MEDS: risperiDONE 1 MG TABLET (FP) PO SCH (10:17)
--- NOTE | 2018-07-17 12:20 | PN ---
Progress Note, Physician Chief Complaint: AWAKE MORE ALERT X 2 ABLE TO VERBALLY COMMUNICATE DENIES CHEST PAIN OR SOB - Current Medication List Current Medications: Active Medications Acetaminophen (Tylenol -) 650 mg PO Q6H PRN PRN Reason: PAIN OR FEVER Amlodipine Besylate (Norvasc -) 5 mg PO DAILY [facility] Last Admin: 07/17/18 10:17 Dose: Not Given Potassium Chloride/Dextrose/Sod Cl (D5-1/2ns+20 Meq Kcl -) 20 meq in 1,000 mls @ 83 mls/hr IV ASDIR [facility] Last Admin: 07/17/18 06:16 Dose: 83 mls/hr Mineral Oil (Mineral Oil -) 30 ml PO Q8H PRN PRN Reason: DRYNESS Mirtazapine (Remeron -) 45 mg PO HS [facility] Last Admin: 07/16/18 21:36 Dose: Not Given Olanzapine (Zyprexa -) 5 mg PO HS [facility] Last Admin: 07/16/18 21:36 Dose: Not Given Phenytoin Sodium (Dilantin Injection -) 100 mg IVPB BID [facility] Last Admin: 07/17/18 10:16 Dose: 100 mg Risperidone (Risperdal -) 1 mg PO DAILY [facility] Last Admin: 07/17/18 10:17 Dose: Not Given - Objective Vital Signs: Vital Signs Temperature 98 F 07/17/18 06:00 Pulse Rate 64 07/17/18 06:00 Respiratory Rate 18 07/17/18 06:00 Blood Pressure 143/83 07/17/18 06:00 O2 Sat by Pulse Oximetry (%) 99 07/16/18 09:00 Constitutional: Yes: Cachectic Eyes: Yes: WNL HENT: Yes: WNL Neck: Yes: WNL Cardiovascular: Yes: WNL Respiratory: Yes: WNL Gastrointestinal: Yes: WNL Genitourinary: Yes: Incontinence Musculoskeletal: Yes: Muscle Weakness Extremities: Yes: Other Edema: No Peripheral Pulses WNL: Yes Integumentary: Yes: Other Wound/Incision: Yes: Clean/Dry Neurological: Yes: Pre-Existing Deficit, Weakness ...Motor Strength: LLE, RLE Psychiatric: Yes: Other Labs: CBC, BMP 07/16/18 07:00 07/17/18 07:35 INR, PTT INR 1.52 (0.83-1.09) H 07/13/18 12:46 Problem List - Problems (1) Malnutrition Code(s): E46 - UNSPECIFIED PROTEIN-CALORIE MALNUTRITION (2) Failure to thrive Code(s): [id number] - Assessment/Plan HCP IN AGREEMENTWITH GTUBE PLACEMENT WITNESSED BY NURSE JUDD HANNA NGT TODAY FOR PREPERATION OF GTUBE TOMORROW CXR TODAY 5PM OOB TO CHAIR TOLERATED DVT PROPHYLAXIS
--- NOTE | 2018-07-17 12:29 | PN ---
Progress Note, Physician History of Present Illness: looking much better much more awake and alert responsive - Current Medication List Current Medications: Active Medications Acetaminophen (Tylenol -) 650 mg PO Q6H PRN PRN Reason: PAIN OR FEVER Amlodipine Besylate (Norvasc -) 5 mg PO DAILY [facility] Last Admin: 07/17/18 10:17 Dose: Not Given Potassium Chloride/Dextrose/Sod Cl (D5-1/2ns+20 Meq Kcl -) 20 meq in 1,000 mls @ 83 mls/hr IV ASDIR [facility] Last Admin: 07/17/18 06:16 Dose: 83 mls/hr Mineral Oil (Mineral Oil -) 30 ml PO Q8H PRN PRN Reason: DRYNESS Mirtazapine (Remeron -) 45 mg PO HS [facility] Last Admin: 07/16/18 21:36 Dose: Not Given Olanzapine (Zyprexa -) 5 mg PO HS [facility] Last Admin: 07/16/18 21:36 Dose: Not Given Phenytoin Sodium (Dilantin Injection -) 100 mg IVPB BID [facility] Last Admin: 07/17/18 10:16 Dose: 100 mg Risperidone (Risperdal -) 1 mg PO DAILY [facility] Last Admin: 07/17/18 10:17 Dose: Not Given - Objective Vital Signs: Vital Signs Temperature 98 F 07/17/18 06:00 Pulse Rate 64 07/17/18 06:00 Respiratory Rate 18 07/17/18 06:00 Blood Pressure 143/83 07/17/18 06:00 O2 Sat by Pulse Oximetry (%) 99 07/16/18 09:00 Constitutional: Yes: No Distress, Calm Cardiovascular: Yes: Regular Rate and Rhythm Respiratory: Yes: Regular, CTA Bilaterally Gastrointestinal: Yes: Normal Bowel Sounds, Soft Musculoskeletal: Yes: WNL Extremities: Yes: WNL Neurological: Yes: Alert Labs: CBC, BMP 07/16/18 07:00 07/17/18 07:35 INR, PTT INR 1.52 (0.83-1.09) H 07/13/18 12:46 Assessment/Plan Problem List - Problems (1) Malnutrition Code(s): E46 - UNSPECIFIED PROTEIN-CALORIE MALNUTRITION (2) Failure to thrive Code(s): [id number] - leukocytosis plan continue to monitor off of abx patient for g tube tomorrow rest as per the team patient improving
--- NOTE | 2018-07-17 18:11 | PN ---
Progress Note (short form) - Note Progress Note: covering dr hou Problems 1. hypernatremia 2. hypothyroidism 3. failure to thrive 4. malnutrition 5. depression 6. htn 7. hypokalemia Current Medications Acetaminophen (Tylenol -) 650 mg PO Q6H PRN PRN Reason: PAIN OR FEVER Amlodipine Besylate (Norvasc -) 5 mg PO DAILY [facility] Last Admin: 07/17/18 10:17 Dose: Not Given Potassium Chloride/Dextrose/Sod Cl (D5-1/2ns+20 Meq Kcl -) 20 meq in 1,000 mls @ 83 mls/hr IV ASDIR [facility] Last Admin: 07/17/18 06:16 Dose: 83 mls/hr Mineral Oil (Mineral Oil -) 30 ml PO Q8H PRN PRN Reason: DRYNESS Mirtazapine (Remeron -) 45 mg PO HS [facility] Last Admin: 07/16/18 21:36 Dose: Not Given Olanzapine (Zyprexa -) 5 mg PO HS [facility] Last Admin: 07/16/18 21:36 Dose: Not Given Phenytoin Sodium (Dilantin Injection -) 100 mg IVPB BID [facility] Last Admin: 07/17/18 10:16 Dose: 100 mg Risperidone (Risperdal -) 1 mg PO DAILY [facility] Last Admin: 07/17/18 10:17 Dose: Not Given Last Vital Signs Temp Pulse Resp BP Pulse Ox 98.2 F 71 20 126/91 97 07/17/18 16:30 07/17/18 10:00 07/17/18 10:00 07/17/18 10:00 07/17/18 09:00 pending check of gtube placement alert non verbal during this exam but denies any complains lungs clear heart reg abd soft nontender ext no edema CBC, BMP 07/16/18 07:00 07/17/18 07:35 CBC, BMP 07/16/18 07:00 07/16/18 07:00 IMP Hypernatremia- resolved Hypokalemia - total body depleted from poor intake riders given earlier improving Plan follow serum chems tomot=rrow
[2018-07-17] MEDS: MIRTAZAPINE 15 MG TABLET (FP) PO SCH (22:54)
[2018-07-17] MEDS: OLANZapine 5 MG TABLET PO SCH (22:54)
[2018-07-18] MEDS: D5-1/2NS+20 MEQ KCL - 20 MEQ/1,000 ML INFUS.BAG IV SCH ×2 (04:33→18:38)
[2018-07-18 07:19] LABS: HEMATOCRIT 39.3 % (35.4-49); HEMOGLOBIN 12.8 GM/dL (11.7-16.9); MCH 30.2 pg (25.7-33.7); MCHC 32.7 g/dl (32.0-35.9); MEAN CELL VOLUME 92.6 fl (80-96); MEAN PLT VOLUME 7.7 fl (7.5-11.1); PLATELET COUNT 354 K/MM3 (134-434); RBC 4.24 M/mm3 (4.00-5.60); RDW 14.8 % (11.9-15.9)
[2018-07-18 07:43] LABS: ANION GAP 5 MMOL/L (8-16); CALCIUM 7.8 mg/dL (8.5-10.1); CHLORIDE 103 mmol/L (98-107); CO2 30 mmol/L (21-32); CREATININE 0.5 mg/dL (0.55-1.3); GLUCOSE,RANDOM 95 mg/dL (74-106); POTASSIUM 4.2 mmol/L (3.5-5.1); SODIUM 138 mmol/L (136-145)
[2018-07-18 08:08] LABS: BLOOD UREA NITROGEN 2 mg/dL (7-18)
--- NOTE | 2018-07-18 08:40 | PN ---
Progress Note, Physician Chief Complaint: AWAKE MORE ALERT SCHEDULED FOR GTUBE PLACEMENT TODAY - Current Medication List Current Medications: Active Medications Acetaminophen (Tylenol -) 650 mg PO Q6H PRN PRN Reason: PAIN OR FEVER Amlodipine Besylate (Norvasc -) 5 mg PO DAILY [facility] Last Admin: 07/17/18 10:17 Dose: Not Given Potassium Chloride/Dextrose/Sod Cl (D5-1/2ns+20 Meq Kcl -) 20 meq in 1,000 mls @ 83 mls/hr IV ASDIR [facility] Last Admin: 07/18/18 04:33 Dose: 83 mls/hr Mineral Oil (Mineral Oil -) 30 ml PO Q8H PRN PRN Reason: DRYNESS Mirtazapine (Remeron -) 45 mg PO HS [facility] Last Admin: 07/17/18 22:54 Dose: Not Given Olanzapine (Zyprexa -) 5 mg PO HS [facility] Last Admin: 07/17/18 22:54 Dose: Not Given Phenytoin Sodium (Dilantin Injection -) 100 mg IVPB BID [facility] Last Admin: 07/17/18 22:40 Dose: 100 mg Risperidone (Risperdal -) 1 mg PO DAILY [facility] Last Admin: 07/17/18 10:17 Dose: Not Given - Objective Vital Signs: Vital Signs Temperature 97.5 F L 07/18/18 06:58 Pulse Rate 89 07/18/18 06:58 Respiratory Rate 20 07/18/18 06:58 Blood Pressure 148/99 07/18/18 06:58 O2 Sat by Pulse Oximetry (%) 95 07/17/18 21:00 Constitutional: Yes: Mild Distress Eyes: Yes: WNL HENT: Yes: WNL Neck: Yes: WNL Cardiovascular: Yes: WNL Respiratory: Yes: WNL Gastrointestinal: Yes: WNL Genitourinary: Yes: Incontinence Musculoskeletal: Yes: Muscle Weakness Extremities: Yes: WNL Edema: No Peripheral Pulses WNL: Yes Integumentary: Yes: WNL Wound/Incision: Yes: Clean/Dry Neurological: Yes: Pre-Existing Deficit ...Motor Strength: LLE, RLE Psychiatric: Yes: Other Labs: CBC, BMP 07/18/18 06:00 07/18/18 06:00 INR, PTT INR 1.52 (0.83-1.09) H 10/17/18 12:46 Problem List - Problems (1) Malnutrition Code(s): E46 - UNSPECIFIED PROTEIN-CALORIE MALNUTRITION (2) Failure to thrive Code(s): [id number] - Assessment/Plan HCP IN AGREEMENTWITH GTUBE PLACEMENT WITNESSED BY NURSE JUDD HANNA NGT TODAY FOR PREPERATION OF GTUBE TODAY OOB TO CHAIR TOLERATED DVT PROPHYLAXIS DC PLANNING TOMORROW
[2018-07-18 10:49] LABS: INR 1.31 (0.83-1.09); PROTHROMBIN TIME (PATIENT) 15.5 SEC (9.7-13.0)
--- NOTE | 2018-07-18 11:11 | PN ---
Progress Note, Physician History of Present Illness: doing well no issues plan is for the g tube awake and alert - Current Medication List Current Medications: Active Medications Acetaminophen (Tylenol -) 650 mg PO Q6H PRN PRN Reason: PAIN OR FEVER Amlodipine Besylate (Norvasc -) 5 mg PO DAILY [facility] Last Admin: 07/17/18 10:17 Dose: Not Given Potassium Chloride/Dextrose/Sod Cl (D5-1/2ns+20 Meq Kcl -) 20 meq in 1,000 mls @ 83 mls/hr IV ASDIR [facility] Last Admin: 07/18/18 04:33 Dose: 83 mls/hr Mineral Oil (Mineral Oil -) 30 ml PO Q8H PRN PRN Reason: DRYNESS Mirtazapine (Remeron -) 45 mg PO HS [facility] Last Admin: 07/17/18 22:54 Dose: Not Given Olanzapine (Zyprexa -) 5 mg PO HS [facility] Last Admin: 07/17/18 22:54 Dose: Not Given Phenytoin Sodium (Dilantin Injection -) 100 mg IVPB BID [facility] Last Admin: 07/17/18 22:40 Dose: 100 mg Risperidone (Risperdal -) 1 mg PO DAILY [facility] Last Admin: 07/17/18 10:17 Dose: Not Given - Objective Vital Signs: Vital Signs Temperature 97.5 F L 07/18/18 06:58 Pulse Rate 89 07/18/18 06:58 Respiratory Rate 20 07/18/18 06:58 Blood Pressure 148/99 07/18/18 06:58 O2 Sat by Pulse Oximetry (%) 95 07/17/18 21:00 Constitutional: Yes: No Distress, Calm Cardiovascular: Yes: Regular Rate and Rhythm Respiratory: Yes: Regular, CTA Bilaterally Gastrointestinal: Yes: Normal Bowel Sounds, Soft, Other (ng in place) Musculoskeletal: Yes: WNL Extremities: Yes: WNL Neurological: Yes: Alert Psychiatric: Yes: Alert, Other Labs: CBC, BMP 07/18/18 06:00 07/18/18 06:00 INR, PTT INR 1.31 (0.83-1.09) H 07/18/18 10:00 Assessment/Plan Problem List - Problems (1) Malnutrition Code(s): E46 - UNSPECIFIED PROTEIN-CALORIE MALNUTRITION (2) Failure to thrive Code(s): [id number] - leukocytosis plan await for final plan for the g tube continue to monitor off of abx nutrition rest as per the team
[2018-07-18] MEDS: amLODIPine BESYLATE 5 MG TABLET (FP) PO SCH (11:47)
[2018-07-18] MEDS: risperiDONE 1 MG TABLET (FP) PO SCH (11:47)
[2018-07-18] MEDS: PHENYTOIN SODIUM 100 MG/2 ML VIAL IVPB SCH ×2 (11:49→23:19)
--- NOTE | 2018-07-18 15:07 | PN ---
Progress Note, Physician History of Present Illness: Pt seen and examined at bedside. He remains lethargic. He still did not get the feeding tube placed. - Current Medication List Current Medications: Active Medications Acetaminophen (Tylenol -) 650 mg PO Q6H PRN PRN Reason: PAIN OR FEVER Amlodipine Besylate (Norvasc -) 5 mg PO DAILY [facility] Last Admin: 07/18/18 11:47 Dose: Not Given Potassium Chloride/Dextrose/Sod Cl (D5-1/2ns+20 Meq Kcl -) 20 meq in 1,000 mls @ 83 mls/hr IV ASDIR [facility] Last Admin: 07/18/18 04:33 Dose: 83 mls/hr Mineral Oil (Mineral Oil -) 30 ml PO Q8H PRN PRN Reason: DRYNESS Mirtazapine (Remeron -) 45 mg PO HS [facility] Last Admin: 07/17/18 22:54 Dose: Not Given Olanzapine (Zyprexa -) 5 mg PO HS [facility] Last Admin: 07/17/18 22:54 Dose: Not Given Phenytoin Sodium (Dilantin Injection -) 100 mg IVPB BID [facility] Last Admin: 07/18/18 11:49 Dose: 100 mg Risperidone (Risperdal -) 1 mg PO DAILY [facility] Last Admin: 07/18/18 11:47 Dose: Not Given - Objective Vital Signs: Vital Signs Temperature 98.1 F 07/18/18 10:00 Pulse Rate 102 H 07/18/18 13:09 Respiratory Rate 17 07/18/18 13:09 Blood Pressure 136/98 07/18/18 13:09 O2 Sat by Pulse Oximetry (%) 100 07/18/18 13:09 Constitutional: Yes: Calm, Cachectic Eyes: Yes: Conjunctiva Clear Cardiovascular: Yes: S1, S2 Respiratory: Yes: CTA Bilaterally Gastrointestinal: Yes: Soft Genitourinary: Yes: Incontinence Musculoskeletal: Yes: Muscle Weakness Edema: LLE: Trace, RLE: Trace Neurological: Yes: Lethargy Labs: CBC, BMP 07/18/18 06:00 07/18/18 06:00 INR, PTT INR 1.31 (0.83-1.09) H 07/18/18 10:00 Problem List - Problems (1) Hypernatremia Code(s): E87.0 - HYPEROSMOLALITY AND HYPERNATREMIA (2) Failure to thrive Code(s): [id number] - (3) Malnutrition Code(s): E46 - UNSPECIFIED PROTEIN-CALORIE MALNUTRITION (4) Pneumonia Code(s): J18.9 - PNEUMONIA, UNSPECIFIED ORGANISM Assessment/Plan Microbiology 07/13/18 14:25 Blood - Peripheral Venous Blood Culture - Final NO GROWTH AFTER 5 DAYS INCUBATION 07/13/18 14:25 Blood - Peripheral Venous Blood Culture - Final NO GROWTH AFTER 5 DAYS INCUBATION Current Medications Generic Name Dose Route Start Last Admin Trade Name Freq PRN Reason Stop Dose Admin Acetaminophen 650 mg 07/13/18 17:46 Tylenol - PO Q6H PRN PAIN OR FEVER Amlodipine Besylate 5 mg 07/14/18 10:00 07/18/18 11:47 Norvasc - PO Not Given DAILY [facility] Potassium Chloride/Dextrose/Sod Cl 20 meq in 1,000 mls @ 83 mls/hr 07/15/18 21 :00 07/18/18 04:33 D5-1/2ns+20 Meq Kcl - IV 83 mls/hr ASDIR [facility] Administration Mineral Oil 30 ml 07/17/18 01:28 Mineral Oil - PO Q8H PRN DRYNESS Mirtazapine 45 mg 07/13/18 22:00 07/17/18 22:54 Remeron - PO Not Given HS [facility] Olanzapine 5 mg 07/13/18 22:00 07/17/18 22:54 Zyprexa - PO Not Given HS FELISHA Phenytoin Sodium 100 mg 07/14/18 10:30 07/18/18 11:49 Dilantin Injection - IVPB 100 mg BID FELISHA Administration Risperidone 1 mg 07/14/18 10:00 07/18/18 11:47 Risperdal - PO Not Given DAILY FELISHA Impression 1. hypernatremia 2. hypothyroidism 3. failure to thrive 4. malnutrition 5. depression 6. htn 7. hypokalemia Plan - sodium is improved - Peg delayed - cont fluids, decrease potassium to 10 meq - repeat labs in am - will follow
[2018-07-18] MEDS: D5-1/2NS+10 MEQ KCL - 10 MEQ/1,000 ML INFUS.BAG IV SCH (18:38)
[2018-07-18] MEDS: MIRTAZAPINE 15 MG TABLET (FP) PO SCH (22:40)
[2018-07-18] MEDS: OLANZapine 5 MG TABLET PO SCH (22:40)
[2018-07-19 08:37] LABS: ALBUMIN 2.3 g/dl (3.4-5.0); ALK PHOS 103 U/L (45-117); ANION GAP 6 MMOL/L (8-16); BILIRUBIN,TOTAL 0.5 mg/dL (0.2-1); CALCIUM 8.1 mg/dL (8.5-10.1); CHLORIDE 108 mmol/L (98-107); CO2 30 mmol/L (21-32); CREATININE 0.4 mg/dL (0.55-1.3); GLUCOSE,RANDOM 101 mg/dL (74-106); POTASSIUM 4.2 mmol/L (3.5-5.1); SGOT/AST 10 U/L (15-37); SGPT/ALT 13 U/L (13-61); SODIUM 144 mmol/L (136-145); TOT PROT 6.3 g/dl (6.4-8.2)
[2018-07-19 08:41] LABS: BLOOD UREA NITROGEN 1 mg/dL (7-18)
[2018-07-19] MEDS: risperiDONE 1 MG TABLET (FP) PO SCH (10:44)
[2018-07-19] MEDS: amLODIPine BESYLATE 5 MG TABLET (FP) PO SCH (10:44)
[2018-07-19] MEDS: PHENYTOIN SODIUM 100 MG/2 ML VIAL IVPB SCH ×2 (10:45→21:37)
[2018-07-19] MEDS: D5-1/2NS+10 MEQ KCL - 10 MEQ/1,000 ML INFUS.BAG IV SCH (10:52)
--- NOTE | 2018-07-19 13:35 | PN ---
Progress Note, Physician History of Present Illness: stable ng tube in place peg could not be placed - Current Medication List Current Medications: Active Medications Acetaminophen (Tylenol -) 650 mg PO Q6H PRN PRN Reason: PAIN OR FEVER Amlodipine Besylate (Norvasc -) 5 mg PO DAILY [facility] Last Admin: 07/19/18 10:44 Dose: Not Given Potassium Chloride/Dextrose/Sod Cl (D5-1/2ns+10 Meq Kcl -) 10 meq in 1,000 mls @ 83 mls/hr IV ASDIR [facility] Last Admin: 07/19/18 10:52 Dose: 83 mls/hr Mineral Oil (Mineral Oil -) 30 ml PO Q8H PRN PRN Reason: DRYNESS Mirtazapine (Remeron -) 45 mg PO HS [facility] Last Admin: 07/18/18 22:40 Dose: Not Given Olanzapine (Zyprexa -) 5 mg PO HS [facility] Last Admin: 07/18/18 22:40 Dose: Not Given Phenytoin Sodium (Dilantin Injection -) 100 mg IVPB BID [facility] Last Admin: 07/19/18 10:45 Dose: 100 mg Risperidone (Risperdal -) 1 mg PO DAILY [facility] Last Admin: 07/19/18 10:44 Dose: Not Given - Objective Vital Signs: Vital Signs Temperature 99.1 F 07/19/18 10:00 Pulse Rate 94 H 07/19/18 07:31 Respiratory Rate 82 H 07/19/18 10:00 Blood Pressure 122/66 07/19/18 10:00 O2 Sat by Pulse Oximetry (%) 94 L 07/19/18 09:00 Constitutional: Yes: No Distress, Calm, Other (failure to thrive) HENT: Yes: Atraumatic Cardiovascular: Yes: Regular Rate and Rhythm Respiratory: Yes: Regular, CTA Bilaterally Gastrointestinal: Yes: Normal Bowel Sounds, Soft Musculoskeletal: Yes: WNL Extremities: Yes: WNL Neurological: Yes: Alert Psychiatric: Yes: Alert Labs: CBC, BMP 07/18/18 06:00 07/19/18 07:05 INR, PTT INR 1.31 (0.83-1.09) H 07/18/18 10:00 Assessment/Plan Problem List - Problems (1) Malnutrition Code(s): E46 - UNSPECIFIED PROTEIN-CALORIE MALNUTRITION (2) Failure to thrive Code(s): [id number] - leukocytosis plan continue current mgmt await for final plan patient stable rest as per the team
--- NOTE | 2018-07-19 15:20 | PN ---
Progress Note, Physician Chief Complaint: Pt seen and examined at bedside. He is pending peg placement. - Current Medication List Current Medications: Active Medications Acetaminophen (Tylenol -) 650 mg PO Q6H PRN PRN Reason: PAIN OR FEVER Amlodipine Besylate (Norvasc -) 5 mg PO DAILY [facility] Last Admin: 07/19/18 10:44 Dose: Not Given Potassium Chloride/Dextrose/Sod Cl (D5-1/2ns+10 Meq Kcl -) 10 meq in 1,000 mls @ 83 mls/hr IV ASDIR [facility] Last Admin: 07/19/18 10:52 Dose: 83 mls/hr Mineral Oil (Mineral Oil -) 30 ml PO Q8H PRN PRN Reason: DRYNESS Mirtazapine (Remeron -) 45 mg PO HS [facility] Last Admin: 07/18/18 22:40 Dose: Not Given Olanzapine (Zyprexa -) 5 mg PO HS [facility] Last Admin: 07/18/18 22:40 Dose: Not Given Phenytoin Sodium (Dilantin Injection -) 100 mg IVPB BID [facility] Last Admin: 07/19/18 10:45 Dose: 100 mg Risperidone (Risperdal -) 1 mg PO DAILY [facility] Last Admin: 07/19/18 10:44 Dose: Not Given - Objective Vital Signs: Vital Signs Temperature 99.1 F 07/19/18 10:00 Pulse Rate 94 H 07/19/18 07:31 Respiratory Rate 82 H 07/19/18 10:00 Blood Pressure 122/66 07/19/18 10:00 O2 Sat by Pulse Oximetry (%) 94 L 07/19/18 09:00 Constitutional: Yes: Calm Eyes: Yes: Conjunctiva Clear HENT: Yes: Atraumatic Cardiovascular: Yes: S1, S2 Respiratory: Yes: CTA Bilaterally Gastrointestinal: Yes: Normal Bowel Sounds, Soft Genitourinary: Yes: Incontinence Musculoskeletal: Yes: Muscle Weakness Edema: LLE: Trace, RLE: Trace Neurological: Yes: Lethargy Labs: CBC, BMP 07/18/18 06:00 07/19/18 07:05 INR, PTT INR 1.31 (0.83-1.09) H 07/18/18 10:00 Problem List - Problems (1) Hypernatremia Code(s): E87.0 - HYPEROSMOLALITY AND HYPERNATREMIA (2) Failure to thrive Code(s): [id number] - (3) Malnutrition Code(s): E46 - UNSPECIFIED PROTEIN-CALORIE MALNUTRITION (4) Pneumonia Code(s): J18.9 - PNEUMONIA, UNSPECIFIED ORGANISM Assessment/Plan Current Medications Generic Name Dose Route Start Last Admin Trade Name Freq PRN Reason Stop Dose Admin Acetaminophen 650 mg 07/13/18 17:46 Tylenol - PO Q6H PRN PAIN OR FEVER Amlodipine Besylate 5 mg 07/14/18 10:00 07/19/18 10:44 Norvasc - PO Not Given DAILY [facility] Potassium Chloride/Dextrose/Sod Cl 10 meq in 1,000 mls @ 83 mls/hr 07/18/18 15 :15 07/19/18 10:52 D5-1/2ns+10 Meq Kcl - IV 83 mls/hr ASDIR [facility] Administration Mineral Oil 30 ml 07/17/18 01:28 Mineral Oil - PO Q8H PRN DRYNESS Mirtazapine 45 mg 07/13/18 22:00 07/18/18 22:40 Remeron - PO Not Given HS [facility] Olanzapine 5 mg 07/13/18 22:00 07/18/18 22:40 Zyprexa - PO Not Given HS [facility] Phenytoin Sodium 100 mg 07/14/18 10:30 07/19/18 10:45 Dilantin Injection - IVPB 100 mg BID [facility] Administration Risperidone 1 mg 07/14/18 10:00 07/19/18 10:44 Risperdal - PO Not Given DAILY [facility] Impression 1. hypernatremia 2. hypothyroidism 3. failure to thrive 4. malnutrition 5. depression 6. htn 7. hypokalemia Plan - will start clinimix - monitor lytes - pending peg placement - repeat labs in am - will follow
[2018-07-19] MEDS: AMINO ACIDS 4.25%/D5W 1,000 ML IV SCH (17:53)
--- NOTE | 2018-07-19 18:36 | PN ---
Progress Note, Physician Chief Complaint: AWAKE EVETNS REVIEWED FAILED GTUBE PLACEMENT - Current Medication List Current Medications: Active Medications Acetaminophen (Tylenol -) 650 mg PO Q6H PRN PRN Reason: PAIN OR FEVER Amlodipine Besylate (Norvasc -) 5 mg PO DAILY [facility] Last Admin: 07/19/18 10:44 Dose: Not Given Amino Acids (Clinimix -) 1,000 mls @ 65 mls/hr IV Q15H [facility] Last Admin: 07/19/18 17:53 Dose: 65 mls/hr Mineral Oil (Mineral Oil -) 30 ml PO Q8H PRN PRN Reason: DRYNESS Mirtazapine (Remeron -) 45 mg PO HS [facility] Last Admin: 07/18/18 22:40 Dose: Not Given Olanzapine (Zyprexa -) 5 mg PO HS [facility] Last Admin: 07/18/18 22:40 Dose: Not Given Phenytoin Sodium (Dilantin Injection -) 100 mg IVPB BID [facility] Last Admin: 07/19/18 10:45 Dose: 100 mg Risperidone (Risperdal -) 1 mg PO DAILY [facility] Last Admin: 07/19/18 10:44 Dose: Not Given - Objective Vital Signs: Vital Signs Temperature 98.8 F 07/19/18 17:21 Pulse Rate 93 H 07/19/18 17:21 Respiratory Rate 20 07/19/18 17:21 Blood Pressure 150/98 07/19/18 17:21 O2 Sat by Pulse Oximetry (%) 94 L 07/19/18 09:00 Constitutional: Yes: Mild Distress Eyes: Yes: WNL HENT: Yes: WNL Neck: Yes: WNL Cardiovascular: Yes: WNL Respiratory: Yes: WNL Gastrointestinal: Yes: Soft Genitourinary: Yes: Incontinence Musculoskeletal: Yes: Muscle Weakness Extremities: Yes: WNL Edema: No Peripheral Pulses WNL: Yes Integumentary: Yes: WNL Wound/Incision: Yes: Clean/Dry Neurological: Yes: Confusion, Pre-Existing Deficit ...Motor Strength: LLE, RLE Psychiatric: Yes: Other Labs: CBC, BMP 07/18/18 06:00 07/19/18 07:05 INR, PTT INR 1.31 (0.83-1.09) H 07/18/18 10:00 Problem List - Problems (1) Malnutrition Code(s): E46 - UNSPECIFIED PROTEIN-CALORIE MALNUTRITION (2) Failure to thrive Code(s): [id number] - Assessment/Plan GTUBE PLACEMENT BY IR WAS UNSUCCESSFUL MAY NEED OTHER OPTION, POSSIBLE SURGICAL WILL CALL SURGERY CONSULT CLINIMIX IV IVF NGT TODAY FOR PREPERATION OF GTUBE TODAY OOB TO CHAIR TOLERATED DVT PROPHYLAXIS
[2018-07-19] MEDS ORDERED: PT OWN MED DRAWER 7, Y5N ONE (21:23)
[2018-07-19] MEDS: MIRTAZAPINE 15 MG TABLET (FP) PO SCH (21:37)
[2018-07-19] MEDS: OLANZapine 5 MG TABLET PO SCH (21:38)
[2018-07-20 07:53] LABS: ALBUMIN 2.2 g/dl (3.4-5.0); ALK PHOS 99 U/L (45-117); ANION GAP 5 MMOL/L (8-16); BILIRUBIN,TOTAL 0.5 mg/dL (0.2-1); BLOOD UREA NITROGEN 4 mg/dL (7-18); CALCIUM 7.9 mg/dL (8.5-10.1); CHLORIDE 103 mmol/L (98-107); CO2 29 mmol/L (21-32); CREATININE 0.4 mg/dL (0.55-1.3); GLUCOSE,RANDOM 104 mg/dL (74-106); PHOSPHOROUS 2.2 mg/dL (2.5-4.9); POTASSIUM 3.8 mmol/L (3.5-5.1); SGOT/AST 14 U/L (15-37); SGPT/ALT 13 U/L (13-61); SODIUM 138 mmol/L (136-145); TOT PROT 6.1 g/dl (6.4-8.2)
[2018-07-20] MEDS ORDERED: POTASSIUM PHOSPHATE 20 MM in SODIUM CHLORIDE 250 ML IVPB ONE (08:15)
[2018-07-20] MEDS: AMINO ACIDS 4.25%/D5W 1,000 ML IV SCH ×2 (09:49→13:40)
[2018-07-20] MEDS ORDERED: PT OWN MED DRAWER 7, Y5N ONE ×2 (09:56→21:25)
[2018-07-20] MEDS: PHENYTOIN SODIUM 100 MG/2 ML VIAL IVPB SCH ×2 (10:01→23:23)
--- NOTE | 2018-07-20 12:02 | PN ---
Progress Note, Physician History of Present Illness: stable ng tube in place patient comfortable - Current Medication List Current Medications: Active Medications Acetaminophen (Tylenol -) 650 mg PO Q6H PRN PRN Reason: PAIN OR FEVER Amlodipine Besylate (Norvasc -) 5 mg PO DAILY [facility] Last Admin: 07/19/18 10:44 Dose: Not Given Amino Acids (Clinimix -) 1,000 mls @ 65 mls/hr IV Q15H [facility] Last Admin: 07/20/18 09:49 Dose: Not Given Potassium Phosphate 20 mm/ (Sodium Chloride) 256.6667 mls @ 62.5 mls/hr IVPB ONCE ONE Stop: 07/20/18 12:21 Last Admin: 07/20/18 10:00 Dose: 62.5 mls/hr Mineral Oil (Mineral Oil -) 30 ml PO Q8H PRN PRN Reason: DRYNESS Mirtazapine (Remeron -) 45 mg PO HS [facility] Last Admin: 07/19/18 21:37 Dose: Not Given Olanzapine (Zyprexa -) 5 mg PO [facility] Last Admin: 07/19/18 21:38 Dose: Not Given Phenytoin Sodium (Dilantin Injection -) 100 mg IVPB BID [facility] Last Admin: 07/20/18 10:01 Dose: 100 mg Risperidone (Risperdal -) 1 mg PO DAILY [facility] Last Admin: 07/19/18 10:44 Dose: Not Given - Objective Vital Signs: Vital Signs Temperature 97.8 F 07/20/18 09:54 Pulse Rate 90 07/20/18 09:54 Respiratory Rate 20 07/20/18 09:54 Blood Pressure 146/92 07/20/18 09:54 O2 Sat by Pulse Oximetry (%) 95 07/19/18 21:00 Constitutional: Yes: No Distress, Calm Cardiovascular: Yes: Regular Rate and Rhythm Respiratory: Yes: Regular, CTA Bilaterally Gastrointestinal: Yes: Normal Bowel Sounds, Soft, Other (ng tube in place) Musculoskeletal: Yes: WNL Extremities: Yes: WNL Labs: CBC, BMP 07/18/18 06:00 07/20/18 06:50 INR, PTT INR 1.31 (0.83-1.09) H 07/18/18 10:00 Assessment/Plan Problem List - Problems (1) Malnutrition Code(s): E46 - UNSPECIFIED PROTEIN-CALORIE MALNUTRITION (2) Failure to thrive Code(s): [id number] - leukocytosis plan continue current mgmt await for final plan patient stable rest as per the team
--- NOTE | 2018-07-20 12:30 | PN ---
Progress Note, Physician History of Present Illness: Pt seen and examined at bedside. He remains lethargic. - Current Medication List Current Medications: Active Medications Acetaminophen (Tylenol -) 650 mg PO Q6H PRN PRN Reason: PAIN OR FEVER Amlodipine Besylate (Norvasc -) 5 mg PO DAILY [facility] Last Admin: 07/19/18 10:44 Dose: Not Given Amino Acids (Clinimix -) 1,000 mls @ 65 mls/hr IV Q15H [facility] Last Admin: 07/20/18 09:49 Dose: Not Given Mineral Oil (Mineral Oil -) 30 ml PO Q8H PRN PRN Reason: DRYNESS Mirtazapine (Remeron -) 45 mg PO HS [facility] Last Admin: 07/19/18 21:37 Dose: Not Given Olanzapine (Zyprexa -) 5 mg PO HS [facility] Last Admin: 07/19/18 21:38 Dose: Not Given Phenytoin Sodium (Dilantin Injection -) 100 mg IVPB BID [facility] Last Admin: 07/20/18 10:01 Dose: 100 mg Risperidone (Risperdal -) 1 mg PO DAILY [facility] Last Admin: 07/19/18 10:44 Dose: Not Given - Objective Vital Signs: Vital Signs Temperature 97.8 F 07/20/18 09:54 Pulse Rate 90 07/20/18 09:54 Respiratory Rate 20 07/20/18 09:54 Blood Pressure 146/92 07/20/18 09:54 O2 Sat by Pulse Oximetry (%) 95 07/19/18 21:00 Constitutional: Yes: Calm, Cachectic Eyes: Yes: Conjunctiva Clear Cardiovascular: Yes: S1, S2 Respiratory: Yes: CTA Bilaterally Gastrointestinal: Yes: Normal Bowel Sounds, Soft Genitourinary: Yes: Incontinence Musculoskeletal: Yes: Muscle Weakness Edema: Yes Edema: LLE: Trace, RLE: Trace Neurological: Yes: Lethargy Labs: CBC, BMP 07/18/18 06:00 07/20/18 06:50 INR, PTT INR 1.31 (0.83-1.09) H 07/18/18 10:00 Problem List - Problems (1) Hypernatremia Code(s): E87.0 - HYPEROSMOLALITY AND HYPERNATREMIA (2) Failure to thrive Code(s): [id number] - (3) Malnutrition Code(s): E46 - UNSPECIFIED PROTEIN-CALORIE MALNUTRITION (4) Pneumonia Code(s): J18.9 - PNEUMONIA, UNSPECIFIED ORGANISM Assessment/Plan Current Medications Generic Name Dose Route Start Last Admin Trade Name Freq PRN Reason Stop Dose Admin Acetaminophen 650 mg 07/13/18 17:46 Tylenol - PO Q6H PRN PAIN OR FEVER Amlodipine Besylate 5 mg 07/14/18 10:00 07/19/18 10:44 Norvasc - PO Not Given DAILY [facility] Amino Acids 1,000 mls @ 65 mls/hr 07/19/18 15:30 07/20/18 09:49 Clinimix - IV Not Given Q15H [facility] Mineral Oil 30 ml 07/17/18 01:28 Mineral Oil - PO Q8H PRN DRYNESS Mirtazapine 45 mg 07/13/18 22:00 07/19/18 21:37 Remeron - PO Not Given HS [facility] Olanzapine 5 mg 07/13/18 22:00 07/19/18 21:38 Zyprexa - PO Not Given HS [facility] Phenytoin Sodium 100 mg 07/14/18 10:30 07/20/18 10:01 Dilantin Injection - IVPB 100 mg BID [facility] Administration Risperidone 1 mg 07/14/18 10:00 07/19/18 10:44 Risperdal - PO Not Given DAILY [facility] Impression 1. hypernatremia 2. hypothyroidism 3. failure to thrive 4. malnutrition 5. depression 6. htn 7. hypokalemia Plan - cont clinimix - replace phos - repeat labs in am - GI/surgery/CTS follow up for feeding tube - monitor lytes - pending peg placement - will follow
[2018-07-20] MEDS: risperiDONE 1 MG TABLET (FP) PO SCH (13:39)
[2018-07-20] MEDS: amLODIPine BESYLATE 5 MG TABLET (FP) PO SCH (13:39)
[2018-07-20] MEDS: D5-1/2NS+10 MEQ KCL - 10 MEQ/1,000 ML INFUS.BAG IV SCH (13:40)
--- NOTE | 2018-07-20 15:29 | CONSULT ---
Consult Consult Specialty:: General Surgery Reason for Consultation:: Gastrostomy - History of Present Illness Chief Complaint: failure to thrive History of Present Illness: 68 yo male with PMH HTN, depression, hypothyroidism, enlarged prostate, recently treated for pneumonia who was BIBA from [facility] for failure to thrive and PEG tube placement. Patient is cachectic and able to say one word and follow simple commands. IR attempted to place the PEG tube but was unsuccessful give the type 4 hiatal hernia and displacement of the stomach in the chest. We we called to place the tube surgically. - History Source History Provided By: Family Member, Medical Record, Transfer Record Limitations to Obtaining History: No Limitations - Past Medical History Cardio/Vascular: Yes: HTN Psych: Yes: Depression Endocrine: Yes: Hypothyroidism - Past Surgical History Additional Surgical History: V-P shunt - Alcohol/Substance Use Hx Alcohol Use: No - Smoking History Smoking history: Never smoked Have you smoked in the past 12 months: No Aproximately how many cigarettes per day: 0 Home Medications - Allergies Allergies/Adverse Reactions: Allergies Allergy/AdvReac Type Severity Reaction Status Date / Time No Known Allergies Allergy Verified 07/13/18 12:20 - Home Medications Home Medications: Ambulatory Orders Amlodipine Besylate [Norvasc -] 10 mg PO DAILY 07/13/18 Cholecalciferol (Vitamin D3) [Vitamin D3] 1,000 unit PO DAILY 07/13/18 Megestrol Acetate Oral Susp [Megace Liquid -] 400 mg PO DAILY 07/13/18 Mirtazapine [Remeron -] 45 mg PO HS 07/13/18 Olanzapine [Zyprexa] 5 mg PO HS 07/13/18 Phenytoin Oral Suspension [Dilantin Oral Suspension 100 MG/4 ML] 200 mg PO BID 07/13/18 Risperidone [Risperdal] 1 mg PO DAILY 07/13/18 Review of Systems - Review of Systems Constitutional: reports: Loss of Appetite, Unintentional Wgt. Loss. denies: Chills, Fever Eyes: denies: Blind Spots, Blurred Vision, Recent Change in Vision HENT: reports: Difficult Swallowing. denies: Throat Pain, Toothache Neck: denies: Decreased ROM, Tenderness Cardiovascular: denies: Chest Pain, Palpitations Respiratory: denies: Cough, SOB Gastrointestinal: denies: Abdominal Pain, Constipation, Diarrhea Genitourinary: denies: Discharge, Dysuria Breasts: reports: No Symptoms Reported. denies: Pain Musculoskeletal: denies: Joint Swelling, Muscle Pain, Muscle Cramps Integumentary: denies: Eczema, Erythema Neurological: denies: Seizure, Syncope Endocrine: reports: Unexplained Weight Loss. denies: Unexplained Weight Gain Hematology/Lymphatic: denies: Easily Bruised, Excessive Bleeding Psychiatric: reports: Depression. denies: Anxiety Physical Exam Vital Signs: Vital Signs Temperature 97.9 F 07/20/18 15:17 Pulse Rate 90 07/20/18 15:17 Respiratory Rate 20 07/20/18 15:17 Blood Pressure 127/90 07/20/18 15:17 O2 Sat by Pulse Oximetry (%) 95 07/19/18 21:00 Vital Signs Period Temp Pulse Resp BP Sys/Sigala Pulse Ox Last 24 Hr 97.6 F-99.3 F 75-91 14-20 127-146/76-96 95-95 Constitutional: Yes: No Distress, Calm, Cachectic Eyes: Yes: Conjunctiva Clear, EOM Intact HENT: Yes: Atraumatic, Other (hydrocehalic, V-P shunt right anterior chest) Neck: Yes: Supple, Trachea Midline Cardiovascular: Yes: Regular Rate and Rhythm, S1, S2 Respiratory: Yes: Regular, CTA Bilaterally Gastrointestinal: Yes: Normal Bowel Sounds, Soft. No: Tenderness ...Rectal Exam: Yes: Deferred Renal/: No: CVA Tenderness - Left, CVA Tenderness - Right Musculoskeletal: No: Muscle Pain, Muscle Weakness Extremities: No: Cool, Cyanosis Edema: No Peripheral Pulses WNL: Yes Integumentary: Yes: Pressure Ulcer. No: Bruising, Erythema, Jaundice Neurological: Yes: Alert, Confusion. No: Oriented Psychiatric: Yes: Alert. No: Oriented Labs: CBC, BMP 07/18/18 06:00 07/20/18 06:50 Imaging - Results Chest X-ray: Report Reviewed, Image Reviewed (resolingf right sided pneumonia) Cat Scan: Report Reviewed, Image Reviewed (January 2018, stomach and spenic flexure are retro cardiac, type 4 hiatal hernia) Problem List - Problems (1) Failure to thrive Assessment/Plan: 68yo male MMP including a type 4 hiatal hernia s/p remote trauma with failure to thrive, likely recent aspiration pneumonia. He is at significant risk for aspiration and postoperatively this will require vigilance and proper care. The cased was discussed with my thoracic colleagues which may assist in this case based on availability. Will proceed with surgery. Medical optimization for surgery NPO and IVF hydration Laparoscopic possible open gastrostomy, possible jejunostomy Discussed with patient risks, benefits and alternatives of aforementioned procedure, including but not limited to bleeding, infection, injury to adjacent structures, leak or injury, intraabdominal abscess, incisional hernia, need for further procedures, ; alternatives include antibiotics, delayed or no surgery - risks of this include failure of nonoperative therapy, perforation, sepsis, recurrence, . Patient's brother (proxy) desires to proceed with operation - will take to OR for above. Informed telephone consent signed for same. Thank you for the opportunity to participate in the care of this patient. Code(s): [id number] - Qualifiers: Failure to thrive age range: in adult Qualified Code(s): R62.7 - Adult failure to thrive (2) Incarcerated hiatal hernia Code(s): K44.0 - DIAPHRAGMATIC HERNIA WITH OBSTRUCTION, WITHOUT GANGRENE (3) Hydrocephalus Code(s): G91.9 - HYDROCEPHALUS, UNSPECIFIED (4) Malnutrition Code(s): E46 - UNSPECIFIED PROTEIN-CALORIE MALNUTRITION Qualifiers: Malnutrition type: protein-calorie malnutrition Protein-calorie malnutrition severity: severe Qualified Code(s): E43 - Unspecified severe protein-calorie malnutrition (5) Pneumonia Code(s): J18.9 - PNEUMONIA, UNSPECIFIED ORGANISM
--- NOTE | 2018-07-20 16:12 | PN ---
Progress Note, Physician Chief Complaint: NOTES AND EVENTS REVIEWED UNABLE TO HAVE GTUBE DONE ENDOSCOPIC ROUTE - Current Medication List Current Medications: Active Medications Acetaminophen (Tylenol -) 650 mg PO Q6H PRN PRN Reason: PAIN OR FEVER Amlodipine Besylate (Norvasc -) 5 mg PO DAILY [facility] Last Admin: 07/20/18 13:39 Dose: Not Given Amino Acids (Clinimix -) 1,000 mls @ 70 mls/hr IV Q15H [facility] Last Admin: 07/20/18 13:40 Dose: Not Given Mineral Oil (Mineral Oil -) 30 ml PO Q8H PRN PRN Reason: DRYNESS Mirtazapine (Remeron -) 45 mg PO HS [facility] Last Admin: 07/19/18 21:37 Dose: Not Given Olanzapine (Zyprexa -) 5 mg PO HS [facility] Last Admin: 07/19/18 21:38 Dose: Not Given Phenytoin Sodium (Dilantin Injection -) 100 mg IVPB BID [facility] Last Admin: 07/20/18 10:01 Dose: 100 mg Risperidone (Risperdal -) 1 mg PO DAILY [facility] Last Admin: 07/20/18 13:39 Dose: Not Given - Objective Vital Signs: Vital Signs Temperature 97.9 F 07/20/18 15:17 Pulse Rate 90 07/20/18 15:17 Respiratory Rate 20 07/20/18 15:17 Blood Pressure 127/90 07/20/18 15:17 O2 Sat by Pulse Oximetry (%) 95 07/19/18 21:00 Constitutional: Yes: Cachectic, Mild Distress Eyes: Yes: Other HENT: Yes: WNL Neck: Yes: WNL Cardiovascular: Yes: WNL Respiratory: Yes: Diminished, On Nasal O2 Gastrointestinal: Yes: Soft Genitourinary: Yes: Incontinence Musculoskeletal: Yes: Muscle Weakness Extremities: Yes: Other Edema: No Peripheral Pulses WNL: Yes Integumentary: Yes: Venous Stasis Changes Wound/Incision: Yes: Dressing Dry and Intact Neurological: Yes: Confusion, Pre-Existing Deficit ...Motor Strength: LLE, RLE Psychiatric: Yes: Other Labs: CBC, BMP 07/18/18 06:00 07/20/18 06:50 INR, PTT INR 1.31 (0.83-1.09) H 07/18/18 10:00 Problem List - Problems (1) Malnutrition Code(s): E46 - UNSPECIFIED PROTEIN-CALORIE MALNUTRITION (2) Failure to thrive Code(s): [id number] - Assessment/Plan PATIENT WILL NEED A SURGIACL G-TUBE PLACEMENT VIA OPEN SURGICAL WITH GENERAL SURGERY AND CTS. AT THIS POINT DUE TO THE PATIENTS CONTINUED MALNOURISHMENT AND POOR ORAL INTAKE THE BENEFIT OUTWEIGHS THE RISK FOR THIS PROCEDURE. PATIENT IS MEDICALLY CLEARED FOR ANESTHESIA AND G-TUBE PLACEMENT FOR THE ABOVE REASON. CHECK LABS BP CONTROL
[2018-07-20] MEDS ORDERED: D5-1/2NS+20 MEQ KCL - 20 MEQ/1,000 ML INFUS.BAG IV SCH (20:15)
[2018-07-20] MEDS: OLANZapine 5 MG TABLET PO SCH (21:19)
[2018-07-20] MEDS: MIRTAZAPINE 15 MG TABLET (FP) PO SCH (21:19)
[2018-07-21] MEDS: AMINO ACIDS 4.25%/D5W 1,000 ML IV SCH (03:55)
[2018-07-21 09:32] LABS: HEMATOCRIT 37.8 % (35.4-49); HEMOGLOBIN 12.6 GM/dL (11.7-16.9); MCH 30.8 pg (25.7-33.7); MCHC 33.5 g/dl (32.0-35.9); MEAN CELL VOLUME 91.9 fl (80-96); MEAN PLT VOLUME 7.8 fl (7.5-11.1); PLATELET COUNT 273 K/MM3 (134-434); RBC 4.11 M/mm3 (4.00-5.60)
[2018-07-21 09:36] LABS: WHITE BLOOD COUNT 34.3 K/mm3 (4.0-10.0)
[2018-07-21] MEDS ORDERED: PIPERACILLIN/TAZOB 3.375 GM 3.375 GM in DEXTROSE 5%-WATER - 50 ML IVPB ONE (09:43)
[2018-07-21] MEDS ORDERED: VANCOMYCIN 1 GRAM (PRE-DOCKED) 1,000 MG/250 ML BAG IVPB ONE (09:43)
--- NOTE | 2018-07-21 09:51 | PN ---
Progress Note, Physician Chief Complaint: [place] [id number] TACHYCARDIC - Current Medication List Current Medications: Active Medications Acetaminophen (Tylenol -) 650 mg PO Q6H PRN PRN Reason: PAIN OR FEVER Amlodipine Besylate (Norvasc -) 5 mg PO DAILY [facility] Last Admin: 07/20/18 13:39 Dose: Not Given Amino Acids (Clinimix -) 1,000 mls @ 70 mls/hr IV Q15H [facility] Last Admin: 07/21/18 03:55 Dose: Not Given Potassium Chloride/Dextrose/Sod Cl (D5-1/2ns+20 Meq Kcl -) 20 meq in 1,000 mls @ 75 mls/hr IV ASDIR [facility] Last Admin: 07/20/18 21:19 Dose: 75 mls/hr Piperacillin Sod/Tazobactam (Sod 3.375 gm/ Dextrose) 50 mls @ 100 mls/hr IVPB ONCE ONE; Protocol Stop: 07/21/18 10:12 Mineral Oil (Mineral Oil -) 30 ml PO Q8H PRN PRN Reason: DRYNESS Mirtazapine (Remeron -) 45 mg PO HS [facility] Last Admin: 07/20/18 21:19 Dose: Not Given Olanzapine (Zyprexa -) 5 mg PO HS [facility] Last Admin: 07/20/18 21:19 Dose: Not Given Phenytoin Sodium (Dilantin Injection -) 100 mg IVPB BID [facility] Last Admin: 07/20/18 23:23 Dose: 100 mg Risperidone (Risperdal -) 1 mg PO DAILY [facility] Last Admin: 07/20/18 13:39 Dose: Not Given Vancomycin HCl (Vancomycin (Pre-Docked)) 1,000 mg IVPB ONCE ONE; Protocol Stop: 07/21/18 09:44 - Objective Vital Signs: Vital Signs Temperature 98.2 F 07/21/18 06:00 Pulse Rate 112 H 07/21/18 06:00 Respiratory Rate 14 07/20/18 22:00 Blood Pressure 138/89 07/21/18 06:00 O2 Sat by Pulse Oximetry (%) 95 07/20/18 21:00 Constitutional: Yes: Mild Distress Eyes: Yes: Other HENT: Yes: WNL Neck: Yes: WNL Cardiovascular: Yes: Tachycardia Respiratory: Yes: WNL Gastrointestinal: Yes: WNL Genitourinary: Yes: Incontinence Musculoskeletal: Yes: Muscle Weakness Extremities: Yes: Other Edema: No Peripheral Pulses WNL: Yes Integumentary: Yes: Other Wound/Incision: Yes: Dressing Dry and Intact Neurological: Yes: Other ...Motor Strength: LLE, RLE Psychiatric: Yes: Other Labs: CBC, BMP 07/21/18 09:10 INR, PTT INR 1.31 (0.83-1.09) H 07/18/18 10:00 Problem List - Problems (1) Malnutrition Code(s): E46 - UNSPECIFIED PROTEIN-CALORIE MALNUTRITION Qualifiers: Malnutrition type: protein-calorie malnutrition Protein-calorie malnutrition severity: severe Qualified Code(s): E43 - Unspecified severe protein-calorie malnutrition (2) Failure to thrive Code(s): [id number] - Qualifiers: Failure to thrive age range: in adult Qualified Code(s): R62.7 - Adult failure to thrive (3) Sepsis Code(s): A41.9 - SEPSIS, UNSPECIFIED ORGANISM (4) Aspiration into respiratory tract Code(s): T17.908A - UNSP FB IN RESP TRACT, PART UNSP CAUSING OTH INJURY, INIT Assessment/Plan ASPIRATION SEPSIS VERSUS CDIFF CHECK CULTURES CHECK LABS IV VANCO AND ZOSYN NOW CXR CANCEL GTUBE SURGERY FOR NOW IVF
[2018-07-21 09:56] LABS: INR 1.62 (0.83-1.09); PROTHROMBIN TIME (PATIENT) 19.2 SEC (9.7-13.0)
[2018-07-21] MEDS: amLODIPine BESYLATE 5 MG TABLET (FP) PO SCH (10:50)
[2018-07-21] MEDS: PHENYTOIN SODIUM 100 MG/2 ML VIAL IVPB SCH ×2 (10:50→23:01)
[2018-07-21] MEDS: risperiDONE 1 MG TABLET (FP) PO SCH (10:50)
[2018-07-21] MEDS ORDERED: PIPERACILLIN/TAZOBACTAM 3.375 GM VIAL IVPB ONE (11:39)
[2018-07-21] MEDS ORDERED: DEXTROSE 5%-WATER - 50 ML IVPB ONE (11:39)
[2018-07-21 12:47] LABS: ALBUMIN 2.1 g/dl (3.4-5.0); ALK PHOS 101 U/L (45-117); ANION GAP 4 MMOL/L (8-16); BILIRUBIN,TOTAL 0.6 mg/dL (0.2-1); BLOOD UREA NITROGEN 11 mg/dL (7-18); CALCIUM 7.6 mg/dL (8.5-10.1); CHLORIDE 105 mmol/L (98-107); CO2 25 mmol/L (21-32); CREATININE 0.4 mg/dL (0.55-1.3); GLUCOSE,RANDOM 99 mg/dL (74-106); MAGNESIUM 1.6 mg/dL (1.8-2.4); PHOSPHOROUS 1.8 mg/dL (2.5-4.9); POTASSIUM 3.4 mmol/L (3.5-5.1); SGOT/AST 13 U/L (15-37); SGPT/ALT 12 U/L (13-61); SODIUM 133 mmol/L (136-145); TOT PROT 5.9 g/dl (6.4-8.2)
--- NOTE | 2018-07-21 12:53 | PN ---
Progress Note, Physician History of Present Illness: patient stable clinically had a jump of wbc has pasty and foul smelling stools still with ng tube - Current Medication List Current Medications: Active Medications Acetaminophen (Tylenol -) 650 mg PO Q6H PRN PRN Reason: PAIN OR FEVER Amlodipine Besylate (Norvasc -) 5 mg PO DAILY [facility] Last Admin: 07/21/18 10:50 Dose: Not Given Amino Acids (Clinimix -) 1,000 mls @ 70 mls/hr IV Q15H [facility] Last Admin: 07/21/18 03:55 Dose: Not Given Potassium Chloride/Dextrose/Sod Cl (D5-1/2ns+20 Meq Kcl -) 20 meq in 1,000 mls @ 75 mls/hr IV ASDIR [facility] Last Admin: 07/20/18 21:19 Dose: 75 mls/hr Mineral Oil (Mineral Oil -) 30 ml PO Q8H PRN PRN Reason: DRYNESS Mirtazapine (Remeron -) 45 mg PO HS [facility] Last Admin: 07/20/18 21:19 Dose: Not Given Olanzapine (Zyprexa -) 5 mg PO HS [facility] Last Admin: 07/20/18 21:19 Dose: Not Given Phenytoin Sodium (Dilantin Injection -) 100 mg IVPB BID [facility] Last Admin: 07/21/18 10:50 Dose: 100 mg Risperidone (Risperdal -) 1 mg PO DAILY [facility] Last Admin: 07/21/18 10:50 Dose: Not Given - Objective Vital Signs: Vital Signs Temperature 99.9 F H 07/21/18 10:00 Pulse Rate 117 H 07/21/18 10:00 Respiratory Rate 18 07/21/18 10:00 Blood Pressure 152/88 07/21/18 10:00 O2 Sat by Pulse Oximetry (%) 95 07/20/18 21:00 Constitutional: Yes: No Distress, Calm Cardiovascular: Yes: Regular Rate and Rhythm Respiratory: Yes: Regular, CTA Bilaterally Gastrointestinal: Yes: Normal Bowel Sounds, Soft, Other (ng in place) Musculoskeletal: Yes: WNL Extremities: Yes: WNL Neurological: Yes: Alert Psychiatric: Yes: Alert Labs: CBC, BMP 07/21/18 09:10 07/21/18 09:10 INR, PTT INR 1.62 (0.83-1.09) H 07/21/18 09:10 Assessment/Plan Problem List - Problems (1) Malnutrition Code(s): E46 - UNSPECIFIED PROTEIN-CALORIE MALNUTRITION (2) Failure to thrive Code(s): [id number] - leukocytosis wbc has jumped up significantly patient having foul smelling stool received a dose of vanco and zosyn plan will repeat the wbc now if wbc high will start on iv flagyl await for cdiff results rest as per the team if cdiff negative will initiate abx
--- NOTE | 2018-07-21 16:09 | PN ---
Progress Note, Physician History of Present Illness: Pt seen and examined at bedside. He remains lethargic. - Current Medication List Current Medications: Active Medications Acetaminophen (Tylenol -) 650 mg PO Q6H PRN PRN Reason: PAIN OR FEVER Amlodipine Besylate (Norvasc -) 5 mg PO DAILY [facility] Last Admin: 07/21/18 10:50 Dose: Not Given Amino Acids (Clinimix -) 1,000 mls @ 70 mls/hr IV Q15H [facility] Last Admin: 07/21/18 03:55 Dose: Not Given Potassium Chloride/Dextrose/Sod Cl (D5-1/2ns+20 Meq Kcl -) 20 meq in 1,000 mls @ 75 mls/hr IV ASDIR [facility] Last Admin: 07/20/18 21:19 Dose: 75 mls/hr Mineral Oil (Mineral Oil -) 30 ml PO Q8H PRN PRN Reason: DRYNESS Mirtazapine (Remeron -) 45 mg PO HS [facility] Last Admin: 07/20/18 21:19 Dose: Not Given Olanzapine (Zyprexa -) 5 mg PO HS [facility] Last Admin: 07/20/18 21:19 Dose: Not Given Phenytoin Sodium (Dilantin Injection -) 100 mg IVPB BID [facility] Last Admin: 07/21/18 10:50 Dose: 100 mg Risperidone (Risperdal -) 1 mg PO DAILY [facility] Last Admin: 07/21/18 10:50 Dose: Not Given - Objective Vital Signs: Vital Signs Temperature 98.1 F 07/21/18 15:10 Pulse Rate 111 H 07/21/18 15:10 Respiratory Rate 18 07/21/18 15:10 Blood Pressure 100/63 07/21/18 15:10 O2 Sat by Pulse Oximetry (%) 95 07/20/18 21:00 Constitutional: Yes: Calm, Cachectic Eyes: Yes: Conjunctiva Clear HENT: Yes: Atraumatic Neck: Yes: Supple Cardiovascular: Yes: S1, S2 Respiratory: Yes: On Nasal O2 Gastrointestinal: Yes: Soft Genitourinary: Yes: Incontinence Musculoskeletal: Yes: Muscle Weakness Edema: No Neurological: Yes: Lethargy Labs: CBC, BMP 07/21/18 09:10 07/21/18 09:10 INR, PTT INR 1.62 (0.83-1.09) H 07/21/18 09:10 Problem List - Problems (1) Hypernatremia Code(s): E87.0 - HYPEROSMOLALITY AND HYPERNATREMIA (2) Failure to thrive Code(s): [id number] - Qualifiers: Failure to thrive age range: in adult Qualified Code(s): R62.7 - Adult failure to thrive (3) Malnutrition Code(s): E46 - UNSPECIFIED PROTEIN-CALORIE MALNUTRITION Qualifiers: Malnutrition type: protein-calorie malnutrition Protein-calorie malnutrition severity: severe Qualified Code(s): E43 - Unspecified severe protein-calorie malnutrition (4) Pneumonia Code(s): J18.9 - PNEUMONIA, UNSPECIFIED ORGANISM Assessment/Plan Current Medications Generic Name Dose Route Start Last Admin Trade Name Freq PRN Reason Stop Dose Admin Acetaminophen 650 mg 07/13/18 17:46 Tylenol - PO Q6H PRN PAIN OR FEVER Amlodipine Besylate 5 mg 07/14/18 10:00 07/21/18 10:50 Norvasc - PO Not Given DAILY [facility] Amino Acids 1,000 mls @ 70 mls/hr 07/20/18 12:31 07/21/18 03:55 Clinimix - IV Not Given Q15H [facility] Potassium Chloride/Dextrose/Sod Cl 20 meq in 1,000 mls @ 75 mls/hr 07/20/18 20 :15 07/20/18 21:19 D5-1/2ns+20 Meq Kcl - IV 75 mls/hr ASDIR [facility] Administration Mineral Oil 30 ml 07/17/18 01:28 Mineral Oil - PO Q8H PRN DRYNESS Mirtazapine 45 mg 07/13/18 22:00 07/20/18 21:19 Remeron - PO Not Given HS [facility] Olanzapine 5 mg 07/13/18 22:00 07/20/18 21:19 Zyprexa - PO Not Given HS [facility] Phenytoin Sodium 100 mg 07/14/18 10:30 07/21/18 10:50 Dilantin Injection - IVPB 100 mg BID [facility] Administration Risperidone 1 mg 07/14/18 10:00 07/21/18 10:50 Risperdal - PO Not Given DAILY [facility] Laboratory Tests 07/21/18 09:10 Sodium 133 L Potassium 3.4 L Phosphorus 1.8 L Magnesium 1.6 L Impression 1. hypernatremia 2. hypothyroidism 3. failure to thrive 4. malnutrition 5. depression 6. htn 7. hypokalemia Plan - hold clinimix - d5ns with 20 meq - repeat bmp in am - feeding tube on hold for now - monitor lytes - pending peg placement - will follow
[2018-07-21] MEDS ORDERED: POTASSIUM PHOSPHATE 20 MM in SODIUM CHLORIDE 250 ML IVPB ONE (16:12)
[2018-07-21] MEDS ORDERED: D5-NS + 20 MEQ KCL - 20 MEQ/1,000 ML INFUS.BAG IV SCH (16:15)
[2018-07-21] MEDS ORDERED: MAGNESIUM SULF 50% (8.12 MEQ/2 ML-1 GM VIAL) IVPB ONE (16:30)
[2018-07-21 20:42] LABS: HEMATOCRIT 36.8 % (35.4-49); HEMOGLOBIN 11.9 GM/dL (11.7-16.9); MCH 30.2 pg (25.7-33.7); MCHC 32.5 g/dl (32.0-35.9); MEAN CELL VOLUME 92.9 fl (80-96); PLATELET COUNT 299 K/MM3 (134-434); RBC 3.96 M/mm3 (4.00-5.60); RDW 14.9 % (11.9-15.9)
[2018-07-21 21:00] LABS: WHITE BLOOD COUNT 31.2 K/mm3 (4.0-10.0)
[2018-07-21] MEDS: MIRTAZAPINE 15 MG TABLET (FP) PO SCH (21:50)
[2018-07-21] MEDS: OLANZapine 5 MG TABLET PO SCH (21:50)
[2018-07-21] MEDS ORDERED: PT OWN MED DRAWER 7, Y5N ONE (21:59)
[2018-07-22 08:34] LABS: ALBUMIN 1.8 g/dl (3.4-5.0); ALK PHOS 94 U/L (45-117); ANION GAP 7 MMOL/L (8-16); BILIRUBIN,TOTAL 0.4 mg/dL (0.2-1); BLOOD UREA NITROGEN 7 mg/dL (7-18); CALCIUM 7.3 mg/dL (8.5-10.1); CHLORIDE 105 mmol/L (98-107); CO2 25 mmol/L (21-32); CREATININE 0.4 mg/dL (0.55-1.3); GLUCOSE,RANDOM 100 mg/dL (74-106); MAGNESIUM 2.2 mg/dL (1.8-2.4); PHOSPHOROUS 2.4 mg/dL (2.5-4.9); POTASSIUM 3.4 mmol/L (3.5-5.1); SGOT/AST 17 U/L (15-37); SGPT/ALT 12 U/L (13-61); SODIUM 137 mmol/L (136-145); TOT PROT 5.3 g/dl (6.4-8.2)
[2018-07-22] MEDS ORDERED: PT OWN MED DRAWER 7, Y5N ONE ×5 (10:23→21:27)
[2018-07-22] MEDS: PHENYTOIN SODIUM 100 MG/2 ML VIAL IVPB SCH (10:28)
[2018-07-22] MEDS: risperiDONE 1 MG TABLET (FP) PO SCH (10:34)
[2018-07-22] MEDS: amLODIPine BESYLATE 5 MG TABLET (FP) PO SCH (10:34)
--- NOTE | 2018-07-22 11:07 | PN ---
Progress Note, Physician History of Present Illness: patient more lethargic not responding well vital signs have been stable - Current Medication List Current Medications: Active Medications Acetaminophen (Tylenol -) 650 mg PO Q6H PRN PRN Reason: PAIN OR FEVER Amlodipine Besylate (Norvasc -) 5 mg PO DAILY [facility] [place] Last Admin: 07/22/18 10:34 Dose: Not Given Dextrose/Sodium Chloride (Dextrose 5%-Normal Saline+20 Meq Kcl -) 20 meq in 1, 000 mls @ 75 mls/hr IV ASDIR [facility] Last Admin: 07/21/18 18:36 Dose: 75 mls/hr Metronidazole (Flagyl 250mg Premixed Ivpb -) 250 mg in 50 mls @ 50 mls/hr IVPB Q8H-IV [facility] Last Admin: 07/22/18 10:35 Dose: 50 mls/hr Mineral Oil (Mineral Oil -) 30 ml PO Q8H PRN PRN Reason: DRYNESS Mirtazapine (Remeron -) 45 mg PO HS [facility] Last Admin: 07/21/18 21:50 Dose: Not Given Olanzapine (Zyprexa -) 5 mg PO HS [facility] [place] Last Admin: 07/21/18 21:50 Dose: Not Given Phenytoin Sodium (Dilantin Injection -) 100 mg IVPB BID [facility] [place] Last Admin: 07/22/18 10:28 Dose: 100 mg Risperidone (Risperdal -) 1 mg PO DAILY [facility] Last Admin: 07/22/18 10:34 Dose: Not Given - Objective Vital Signs: Vital Signs Temperature 97.4 F L 07/22/18 08:20 Pulse Rate 86 07/22/18 08:20 Respiratory Rate 20 07/22/18 08:20 Blood Pressure 127/84 07/22/18 08:20 O2 Sat by Pulse Oximetry (%) 98 07/21/18 21:00 Constitutional: Yes: No Distress, Calm Cardiovascular: Yes: Regular Rate and Rhythm Respiratory: Yes: Regular, CTA Bilaterally Gastrointestinal: Yes: Normal Bowel Sounds, Soft, Other (ng in place) Musculoskeletal: Yes: WNL Extremities: Yes: WNL Neurological: Yes: Alert, Other (lethargic) Psychiatric: Yes: Other Labs: CBC, BMP 07/21/18 19:30 07/22/18 06:50 INR, PTT INR 1.62 (0.83-1.09) H 07/21/18 09:10 Assessment/Plan Problem List - Problems (1) Malnutrition Code(s): E46 - UNSPECIFIED PROTEIN-CALORIE MALNUTRITION (2) Failure to thrive Code(s): [id number] - leukocytosis plan will get wbc stat follow wbc if patients cdiff is negative will start on abx if positive will add oral vanco rest as per the team
--- NOTE | 2018-07-22 11:41 | PN ---
Progress Note, Physician Chief Complaint: Came in With Aspiration pneumonia, which was treated by IV abx Now has gone into sepsis, source unidentified so far Plan for PEG placement once medically stable History of Present Illness: NAD Lethargic NG tube in place-ready to be used Unable to place PEG due to acute sepsis WBC elevated to 31.2, received Vanco yesterday, wbc improved to 18K BC pending Cdiff pending pt afebrile - Current Medication List Current Medications: Active Medications Acetaminophen (Tylenol -) 650 mg PO Q6H PRN PRN Reason: PAIN OR FEVER Amlodipine Besylate (Norvasc -) 5 mg PO DAILY [facility] Last Admin: 07/22/18 10:34 Dose: Not Given Metronidazole (Flagyl 250mg Premixed Ivpb -) 250 mg in 50 mls @ 50 mls/hr IVPB Q8H-IV [facility] Last Admin: 07/22/18 10:35 Dose: 50 mls/hr Dextrose/Sodium Chloride (Dextrose 5%-Normal Saline+40 Meq Kcl -) 40 meq in 1, 000 mls @ 75 mls/hr IV ASDIR [facility] Mineral Oil (Mineral Oil -) 30 ml PO Q8H PRN PRN Reason: DRYNESS Mirtazapine (Remeron -) 45 mg PO HS [facility] Last Admin: 07/21/18 21:50 Dose: Not Given Olanzapine (Zyprexa -) 5 mg PO HS [facility] Last Admin: 07/21/18 21:50 Dose: Not Given Phenytoin Sodium (Dilantin Injection -) 100 mg IVPB BID [facility] Last Admin: 07/22/18 10:28 Dose: 100 mg Risperidone (Risperdal -) 1 mg PO DAILY [facility] Last Admin: 07/22/18 10:34 Dose: Not Given - Objective Vital Signs: Vital Signs Temperature 97.4 F L 07/22/18 08:20 Pulse Rate 86 07/22/18 08:20 Respiratory Rate 20 07/22/18 08:20 Blood Pressure 127/84 07/22/18 08:20 O2 Sat by Pulse Oximetry (%) 98 07/21/18 21:00 Constitutional: Yes: No Distress, Calm, Cachectic Cardiovascular: Yes: Regular Rate and Rhythm Respiratory: Yes: Diminished, Rales (diffuse) Gastrointestinal: Yes: Normal Bowel Sounds, Soft Musculoskeletal: Yes: Muscle Weakness Edema: Yes Edema: LLE: 2+, RLE: 2+ Peripheral Pulses WNL: Yes Neurological: Yes: Lethargy, Pre-Existing Deficit Labs: CBC, BMP 07/22/18 06:50 INR, PTT INR 1.62 (0.83-1.09) H 07/21/18 09:10 Problem List - Problems (1) Aspiration pneumonia Assessment/Plan: -NPO -NG tube, placement confirmed by Xray -Okay to use NG tube -PEG once stable -Surgery on board Code(s): J69.0 - PNEUMONITIS DUE TO INHALATION OF FOOD AND VOMIT (2) Failure to thrive Assessment/Plan: -Peg placement once medically stable -May initiate feeding via NG tube once CT abd/pelvis results okay Code(s): ZEA0170 - Qualifiers: Failure to thrive age range: in adult Qualified Code(s): R62.7 - Adult failure to thrive (3) Hydrocephalus Code(s): G91.9 - HYDROCEPHALUS, UNSPECIFIED (4) Malnutrition Assessment/Plan: -Initiate feeding given CT abd/pelvis is okay -Prosource -RD on board Code(s): E46 - UNSPECIFIED PROTEIN-CALORIE MALNUTRITION Qualifiers: Malnutrition type: protein-calorie malnutrition Protein-calorie malnutrition severity: severe Qualified Code(s): E43 - Unspecified severe protein-calorie malnutrition (5) Sepsis Assessment/Plan: -BC pending -ID on board -Started on Vancomycin and Zosyn -D/C Zosyn if Cdiff results positive -Afebrile -IVF -monitor daily labs Code(s): A41.9 - SEPSIS, UNSPECIFIED ORGANISM (6) Hypokalemia Assessment/Plan: -2/2 to NPO status -Change IVF to D5+N/S+KCl 40 meq @ 75cc/hr -daily labs -Initiate feeding once CT abd/pelvis results Code(s): E87.6 - HYPOKALEMIA Assessment/Plan see problem list poor prognosis Palliative care consult
[2018-07-22 11:42] LABS: HEMATOCRIT 32.7 % (35.4-49); MCHC 33.5 g/dl (32.0-35.9); MEAN CELL VOLUME 92.6 fl (80-96); MEAN PLT VOLUME 8.8 fl (7.5-11.1); PLATELET COUNT 232 K/MM3 (134-434); RBC 3.53 M/mm3 (4.00-5.60); RDW 15.2 % (11.9-15.9); WHITE BLOOD COUNT 18.5 K/mm3 (4.0-10.0)
--- NOTE | 2018-07-22 11:46 | PN ---
Progress Note, Physician Chief Complaint: failure to thrive History of Present Illness: 68 yo male with PMH HTN, depression, hypothyroidism, enlarged prostate, recently treated for pneumonia who was BIBA from [facility] for failure to thrive and PEG tube placement. no interval change. - Current Medication List Current Medications: Active Medications Acetaminophen (Tylenol -) 650 mg PO Q6H PRN PRN Reason: PAIN OR FEVER Amlodipine Besylate (Norvasc -) 5 mg PO DAILY [facility] Last Admin: 07/22/18 10:34 Dose: Not Given Metronidazole (Flagyl 250mg Premixed Ivpb -) 250 mg in 50 mls @ 50 mls/hr IVPB Q8H-IV [facility] Last Admin: 07/22/18 10:35 Dose: 50 mls/hr Dextrose/Sodium Chloride (Dextrose 5%-Normal Saline+40 Meq Kcl -) 40 meq in 1, 000 mls @ 75 mls/hr IV ASDIR [facility] Mineral Oil (Mineral Oil -) 30 ml PO Q8H PRN PRN Reason: DRYNESS Mirtazapine (Remeron -) 45 mg PO HS [facility] Last Admin: 07/21/18 21:50 Dose: Not Given Olanzapine (Zyprexa -) 5 mg PO HS [facility] Last Admin: 07/21/18 21:50 Dose: Not Given Phenytoin Sodium (Dilantin Injection -) 100 mg IVPB BID [facility] Last Admin: 07/22/18 10:28 Dose: 100 mg Risperidone (Risperdal -) 1 mg PO DAILY [facility] Last Admin: 07/22/18 10:34 Dose: Not Given - Objective Vital Signs: Vital Signs Temperature 97.4 F L 07/22/18 08:20 Pulse Rate 86 07/22/18 08:20 Respiratory Rate 20 07/22/18 08:20 Blood Pressure 127/84 07/22/18 08:20 O2 Sat by Pulse Oximetry (%) 98 07/21/18 21:00 Constitutional: Yes: No Distress, Calm, Cachectic, Thin Eyes: Yes: Conjunctiva Clear, EOM Intact HENT: Yes: Atraumatic, Other (hydrocephalic) Neck: Yes: Supple, Trachea Midline Cardiovascular: Yes: Regular Rate and Rhythm, S1, S2 Respiratory: Yes: Regular, CTA Bilaterally, On Nasal O2 Gastrointestinal: Yes: Normal Bowel Sounds, Soft. No: Tenderness ...Rectal Exam: Yes: Deferred Genitourinary: No: CVA Tenderness - Left, CVA Tenderness - Right Musculoskeletal: No: Muscle Pain, Muscle Weakness Extremities: No: Cool, Cyanosis Edema: No Peripheral Pulses WNL: Yes Peripheral Pulses: Left Radial: 2+, Right Radial: 2+, Left Doralis Pedis: 2+, Right Dorsalis Pedis: 2+ Integumentary: No: Jaundice, Rash Wound/Incision: Yes: Clean/Dry, Well Approximated Neurological: Yes: Alert. No: Oriented Psychiatric: Yes: Alert. No: Oriented Labs: CBC, BMP 07/21/18 19:30 07/22/18 06:50 INR, PTT INR 1.62 (0.83-1.09) H 07/21/18 09:10 Problem List - Problems (1) Failure to thrive Assessment/Plan: 68yo male MMP including a type 4 hiatal hernia s/p remote trauma with failure to thrive, likely recent aspiration pneumonia. He is at significant risk for aspiration and postoperatively this will require vigilance and proper care. The cased was discussed with my thoracic colleagues which may assist in this case based on availability. Will proceed with surgery when sepsis is improved. Medical optimization NPO and IVF hydration Broad spectrum IV antibiotics CT Chest/ Abdomen and Pelvis with IV and PO Will follow Thank you for the opportunity to participate in the care of this patient. Code(s): [id number] - Qualifiers: Failure to thrive age range: in adult Qualified Code(s): R62.7 - Adult failure to thrive (2) Incarcerated hiatal hernia Code(s): K44.0 - DIAPHRAGMATIC HERNIA WITH OBSTRUCTION, WITHOUT GANGRENE (3) Hydrocephalus Code(s): G91.9 - HYDROCEPHALUS, UNSPECIFIED (4) Malnutrition Code(s): E46 - UNSPECIFIED PROTEIN-CALORIE MALNUTRITION Qualifiers: Malnutrition type: protein-calorie malnutrition Protein-calorie malnutrition severity: severe Qualified Code(s): E43 - Unspecified severe protein-calorie malnutrition (5) Pneumonia Code(s): J18.9 - PNEUMONIA, UNSPECIFIED ORGANISM
[2018-07-22] MEDS: D5-NS + 40 MEQ KCL - 40 MEQ/1,000 ML INFUS.BAG IV SCH (12:04)
[2018-07-22] MEDS ORDERED: PIPERACILLIN/TAZOB 3.375 GM 3.375 GM in DEXTROSE 5%-WATER - 50 ML IVPB SCH (12:15)
[2018-07-22] MEDS ORDERED: POTASSIUM PHOSPHATE 30 MM in SODIUM CHLORIDE 500 ML IVPB ONE (12:23)
--- NOTE | 2018-07-22 12:23 | PN ---
Progress Note, Physician History of Present Illness: Pt seen and examined at bedside. No great clinical change. He remains lethargic. - Current Medication List Current Medications: Active Medications Acetaminophen (Tylenol -) 650 mg PO Q6H PRN PRN Reason: PAIN OR FEVER Amlodipine Besylate (Norvasc -) 5 mg PO DAILY [facility] Last Admin: 07/22/18 10:34 Dose: Not Given Metronidazole (Flagyl 250mg Premixed Ivpb -) 250 mg in 50 mls @ 50 mls/hr IVPB Q8H-IV [facility] Last Admin: 07/22/18 10:35 Dose: 50 mls/hr Dextrose/Sodium Chloride (Dextrose 5%-Normal Saline+40 Meq Kcl -) 40 meq in 1, 000 mls @ 75 mls/hr IV ASDIR [facility] Last Admin: 07/22/18 12:04 Dose: 75 mls/hr Piperacillin Sod/Tazobactam (Sod 3.375 gm/ Dextrose) 50 mls @ 100 mls/hr IVPB Q8H-IV [facility]; Protocol Mineral Oil (Mineral Oil -) 30 ml PO Q8H PRN PRN Reason: DRYNESS Mirtazapine (Remeron -) 45 mg PO HS [facility] Last Admin: 07/21/18 21:50 Dose: Not Given Olanzapine (Zyprexa -) 5 mg PO HS [facility] Last Admin: 07/21/18 21:50 Dose: Not Given Phenytoin Sodium (Dilantin Injection -) 100 mg IVPB BID [facility] Last Admin: 07/22/18 10:28 Dose: 100 mg Risperidone (Risperdal -) 1 mg PO DAILY [facility] Last Admin: 07/22/18 10:34 Dose: Not Given - Objective Vital Signs: Vital Signs Temperature 97.4 F L 07/22/18 08:20 Pulse Rate 86 07/22/18 08:20 Respiratory Rate 20 07/22/18 08:20 Blood Pressure 127/84 07/22/18 08:20 O2 Sat by Pulse Oximetry (%) 98 07/21/18 21:00 Constitutional: Yes: Calm, Cachectic Eyes: Yes: Conjunctiva Clear HENT: Yes: Atraumatic Cardiovascular: Yes: S1, S2 Respiratory: Yes: CTA Bilaterally, On Nasal O2 Gastrointestinal: Yes: Soft Genitourinary: Yes: Incontinence Edema: Yes Edema: LLE: Trace, RLE: Trace Neurological: Yes: Lethargy Labs: CBC, BMP 07/22/18 11:30 07/22/18 06:50 INR, PTT INR 1.62 (0.83-1.09) H 07/21/18 09:10 Problem List - Problems (1) Hypernatremia Code(s): E87.0 - HYPEROSMOLALITY AND HYPERNATREMIA (2) Failure to thrive Code(s): [id number] - Qualifiers: Failure to thrive age range: in adult Qualified Code(s): R62.7 - Adult failure to thrive (3) Malnutrition Code(s): E46 - UNSPECIFIED PROTEIN-CALORIE MALNUTRITION Qualifiers: Malnutrition type: protein-calorie malnutrition Protein-calorie malnutrition severity: severe Qualified Code(s): E43 - Unspecified severe protein-calorie malnutrition (4) Pneumonia Code(s): J18.9 - PNEUMONIA, UNSPECIFIED ORGANISM Assessment/Plan Current Medications Generic Name Dose Route Start Last Admin Trade Name Freq PRN Reason Stop Dose Admin Acetaminophen 650 mg 07/13/18 17:46 Tylenol - PO Q6H PRN PAIN OR FEVER Amlodipine Besylate 5 mg 07/14/18 10:00 07/22/18 10:34 Norvasc - PO Not Given DAILY [facility] Metronidazole 250 mg in 50 mls @ 50 mls/hr 07/21/18 21:45 07/22/18 10:35 Flagyl 250mg Premixed Ivpb - IVPB 50 mls/hr Q8H-IV [facility] Administration Dextrose/Sodium Chloride 40 meq in 1,000 mls @ 75 mls/hr 07/22/18 11:45 07/22 12:04 Dextrose 5%-Normal Saline+40 Meq Kcl - IV 75 mls/hr ASD[facility] Administration Piperacillin Sod/Tazobactam 50 mls @ 100 mls/hr 07/22/18 12:15 Sod 3.375 gm/ Dextrose IVPB Q8H-IV [facility] Protocol Mineral Oil 30 ml 07/17/18 01:28 Mineral Oil - PO Q8H PRN DRYNESS Mirtazapine 45 mg 07/13/18 22:00 07/21/18 21:50 Remeron - PO Not Given [facility] Olanzapine 5 mg 07/13/18 22:00 07/21/18 21:50 Zyprexa - PO Not Given [facility] Phenytoin Sodium 100 mg 07/14/18 10:30 07/22/18 10:28 Dilantin Injection - IVPB 100 mg BID [facility] Administration Risperidone 1 mg 07/14/18 10:00 07/22/18 10:34 Risperdal - PO Not Given DAILY [facility] Laboratory Tests 07/22/18 06:50 Sodium 137 Potassium 3.4 L Phosphorus 2.4 L Impression 1. hypernatremia 2. hypothyroidism 3. failure to thrive 4. malnutrition 5. depression 6. htn 7. hypokalemia Plan - cont fluids - wbc improving - replace phos - repeat labs in am - pending peg placement - will follow
[2018-07-22] MEDS ORDERED: ACETAMINOPHEN 650 MG/20.3 ML ORAL SOLUTION (CUPS) NGT PRN (14:38)
[2018-07-22] MEDS: AMINO ACIDS/PROTEIN HYDROLYS 30 ML LIQUID.PKT PO SCH (17:32)
[2018-07-22] MEDS: VANCOMYCIN 250 MG/5 ML ORAL SOLUTION NGT SCH (18:14)
[2018-07-22] MEDS: MIRTAZAPINE 15 MG TABLET (FP) PO SCH (21:23)
[2018-07-22] MEDS: PHENYTOIN 100 MG/4 ML U-D CUP NGT SCH (21:24)
[2018-07-22] MEDS: OLANZapine 5 MG TABLET PO SCH (21:29)
[2018-07-23] MEDS: VANCOMYCIN 250 MG/5 ML ORAL SOLUTION NGT SCH ×5 (00:02→23:05)
[2018-07-23 08:30] LABS: ALBUMIN 2.1 g/dl (3.4-5.0); ALK PHOS 111 U/L (45-117); ANION GAP 11 MMOL/L (8-16); BILIRUBIN,TOTAL 0.4 mg/dL (0.2-1); BLOOD UREA NITROGEN 4 mg/dL (7-18); CALCIUM 7.5 mg/dL (8.5-10.1); CHLORIDE 110 mmol/L (98-107); CO2 20 mmol/L (21-32); CREATININE 0.4 mg/dL (0.55-1.3); GLUCOSE,RANDOM 82 mg/dL (74-106); POTASSIUM 4.4 mmol/L (3.5-5.1); SGOT/AST 24 U/L (15-37); SGPT/ALT 17 U/L (13-61); SODIUM 142 mmol/L (136-145)
[2018-07-23 08:44] LABS: BASO % 0.5 % (0-2.0); EOS % 0.4 % (0-4.5); HEMOGLOBIN 13.1 GM/dL (11.7-16.9); LYMPH % 6.4 % (8-40); MCH 31.5 pg (25.7-33.7); MCHC 33.5 g/dl (32.0-35.9); MEAN PLT VOLUME 9.5 fl (7.5-11.1); MONO % 10.5 % (3.8-10.2); NEUT % 82.2 % (42.8-82.8); PLATELET COUNT 104 K/MM3 (134-434); RBC 4.15 M/mm3 (4.00-5.60); RDW 15.9 % (11.9-15.9); WHITE BLOOD COUNT 9.6 K/mm3 (4.0-10.0)
[2018-07-23] MEDS: AMINO ACIDS/PROTEIN HYDROLYS 30 ML LIQUID.PKT PO SCH ×2 (09:05→18:22)
[2018-07-23] MEDS ORDERED: PT OWN MED DRAWER 7, Y5N ONE ×6 (09:27→21:24)
[2018-07-23] MEDS: risperiDONE 1 MG TABLET (FP) PO SCH (09:45)
[2018-07-23] MEDS: PHENYTOIN 100 MG/4 ML U-D CUP NGT SCH ×2 (09:45→21:26)
[2018-07-23] MEDS: amLODIPine BESYLATE 10 MG TABLET (FP) NGT SCH (09:45)
--- NOTE | 2018-07-23 11:55 | PN ---
Progress Note, Physician Chief Complaint: failure to thrive History of Present Illness: 68 yo male with PMH HTN, depression, hypothyroidism, enlarged prostate, recently treated for pneumonia who was BIBA from [facility] for failure to thrive and PEG tube placement. no interval change. - Current Medication List Current Medications: Active Medications Acetaminophen (Tylenol Oral Solution -) 500 mg NGT Q4H PRN PRN Reason: PAIN OR FEVER Amino Acids (Prosource No Carb Liquid Pkt) 30 ml PO BID@0800,1730 [facility] Last Admin: 07/23/18 09:05 Dose: 30 ml Amlodipine Besylate (Norvasc -) 10 mg NGT DAILY [facility] Last Admin: 07/23/18 09:45 Dose: 10 mg Metronidazole (Flagyl 250mg Premixed Ivpb -) 250 mg in 50 mls @ 50 mls/hr IVPB Q8H-IV [facility] Last Admin: 07/23/18 10:43 Dose: 50 mls/hr Dextrose/Sodium Chloride (Dextrose 5%-Normal Saline+40 Meq Kcl -) 40 meq in 1, 000 mls @ 75 mls/hr IV ASDIR [facility] Last Admin: 07/22/18 12:04 Dose: 75 mls/hr Mineral Oil (Mineral Oil -) 30 ml PO Q8H PRN PRN Reason: DRYNESS Mirtazapine (Remeron -) 45 mg PO HS [facility] Last Admin: 07/22/18 21:23 Dose: 45 mg Olanzapine (Zyprexa -) 5 mg PO HS [facility] Last Admin: 07/22/18 21:29 Dose: 5 mg Phenytoin Sodium (Dilantin Injection -) 100 mg IVPB BID [facility] Last Admin: 07/22/18 10:28 Dose: 100 mg Phenytoin Sodium (Dilantin Oral Suspension -) 200 mg NGT BID [facility] Last Admin: 07/23/18 09:45 Dose: 200 mg Risperidone (Risperdal -) 1 mg PO DAILY [facility] Last Admin: 07/23/18 09:45 Dose: 1 mg Vancomycin HCl (Vancomycin Oral Solution) 125 mg NGT Q6HPO [facility] Last Admin: 07/23/18 05:51 Dose: 125 mg - Objective Vital Signs: Vital Signs Temperature 98.1 F 07/23/18 07:12 Pulse Rate 100 H 07/23/18 07:12 Respiratory Rate 20 07/23/18 07:12 Blood Pressure 153/103 H 07/23/18 07:12 O2 Sat by Pulse Oximetry (%) 97 07/22/18 21:00 Constitutional: Yes: No Distress, Calm, Cachectic, Thin Eyes: Yes: Conjunctiva Clear, EOM Intact HENT: Yes: Atraumatic, Other (hydrocepahlic) Neck: Yes: Supple, Trachea Midline Cardiovascular: Yes: Regular Rate and Rhythm, S1, S2 Respiratory: Yes: Regular, CTA Bilaterally Gastrointestinal: Yes: Normal Bowel Sounds, Soft, Tenderness, Rebound. No: Tenderness, Tenderness, Epigastrium ...Rectal Exam: Yes: Deferred Genitourinary: No: CVA Tenderness - Left, CVA Tenderness - Right Musculoskeletal: No: Muscle Pain, Muscle Weakness Extremities: No: Cool, Cyanosis Integumentary: No: Incision, Jaundice, Rash Neurological: Yes: Alert, Oriented Psychiatric: Yes: Alert, Oriented Labs: CBC, BMP 07/23/18 06:00 07/23/18 06:00 INR, PTT INR 1.62 (0.83-1.09) H 07/21/18 09:10 Problem List - Problems (1) Failure to thrive Assessment/Plan: 68yo male MMP including a type 4 hiatal hernia s/p remote trauma with failure to thrive, likely recent aspiration pneumonia. He is at significant risk for aspiration and postoperatively this will require vigilance and proper care. The cased was discussed with my thoracic colleagues which may assist in this case based on availability. Will proceed with surgery when sepsis is improved. Medical optimization NPO and IVF hydration Broad spectrum IV antibiotics PATIENTS FAMILY OPTING FOR PALLIATIVE CARE Code(s): [id number] - Qualifiers: Failure to thrive age range: in adult Qualified Code(s): R62.7 - Adult failure to thrive (2) Incarcerated hiatal hernia Code(s): K44.0 - DIAPHRAGMATIC HERNIA WITH OBSTRUCTION, WITHOUT GANGRENE (3) Hydrocephalus Code(s): G91.9 - HYDROCEPHALUS, UNSPECIFIED (4) Malnutrition Code(s): E46 - UNSPECIFIED PROTEIN-CALORIE MALNUTRITION Qualifiers: Malnutrition type: protein-calorie malnutrition Protein-calorie malnutrition severity: severe Qualified Code(s): E43 - Unspecified severe protein-calorie malnutrition (5) Pneumonia Code(s): J18.9 - PNEUMONIA, UNSPECIFIED ORGANISM
--- NOTE | 2018-07-23 12:56 | PN ---
Progress Note, Physician Chief Complaint: Came in With Aspiration pneumonia, which was treated by IV abx Now has gone into sepsis, source unidentified so far Plan for PEG placement once medically stable History of Present Illness: NAD Lethargic NG tube in place-ready to be used Unable to place PEG due to acute sepsis WBC normalized BC: Microbiology 07/21/18 11:20 Blood - Peripheral Venous Blood Culture - Preliminary NO GROWTH OBTAINED AFTER 48 HOURS, INCUBATION TO CONTINUE FOR 3 DAYS. 07/21/18 11:00 Blood - Peripheral Venous Blood Culture - Preliminary NO GROWTH OBTAINED AFTER 48 HOURS, INCUBATION TO CONTINUE FOR 3 DAYS. 07/21/18 10:19 Stool Clostridium difficile Antigen (JORGE LUIS) - Final- POSITIVE 07/21/18 10:19 Stool Clostridium difficile Toxin Assay - Final 07/13/18 14:25 Blood - Peripheral Venous Blood Culture - Final NO GROWTH AFTER 5 DAYS INCUBATION 07/13/18 14:25 Blood - Peripheral Venous Blood Culture - Final NO GROWTH AFTER 5 DAYS INCUBATION 07/13/18 13:00 Urine - Urine - Catheterized Urine Culture - Final NO GROWTH OBTAINED pt afebrile CT abd/pelvis: In comparison to a chest CT exam of 02/04/2018 interval development of a right lower lobe infiltrate is seen. Development of a small to moderate left pleural effusion is noted. A very small right pleural effusion is seen which appears slightly increased. Concentric wall edema is noted involving the right and left colon as discussed above. There is also similar concentric wall thickening involving the distal small bowel. These findings are suggestive of acute enterocolitis. Development of a small amount of nonspecific free fluid is noted within the abdomen and pelvis. Interval development of concentric subcutaneous edema is seen principally along the flanks. Ventriculoperitoneal shunt catheter in place. 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 Mild diffuse urinary bladder wall thickening which may be on the basis of chronic outlet obstruction versus acute or chronic cystitis. At least moderate prostate enlargement. - Current Medication List Current Medications: Active Medications Acetaminophen (Tylenol Oral Solution -) 500 mg NGT Q4H PRN PRN Reason: PAIN OR FEVER Amino Acids (Prosource No Carb Liquid Pkt) 30 ml PO BID@0800,1730 [facility] Last Admin: 07/23/18 09:05 Dose: 30 ml Amlodipine Besylate (Norvasc -) 10 mg NGT DAILY [facility] Last Admin: 07/23/18 09:45 Dose: 10 mg Metronidazole (Flagyl 250mg Premixed Ivpb -) 250 mg in 50 mls @ 50 mls/hr IVPB Q8H-IV [facility] Last Admin: 07/23/18 10:43 Dose: 50 mls/hr Dextrose/Sodium Chloride (Dextrose 5%-Normal Saline+40 Meq Kcl -) 40 meq in 1, 000 mls @ 75 mls/hr IV ASDIR [facility] Last Admin: 07/22/18 12:04 Dose: 75 mls/hr Mineral Oil (Mineral Oil -) 30 ml PO Q8H PRN PRN Reason: DRYNESS Mirtazapine (Remeron -) 45 mg PO HS [facility] Last Admin: 07/22/18 21:23 Dose: 45 mg Olanzapine (Zyprexa -) 5 mg PO HS [facility] Last Admin: 07/22/18 21:29 Dose: 5 mg Phenytoin Sodium (Dilantin Injection -) 100 mg IVPB BID [facility] Last Admin: 07/22/18 10:28 Dose: 100 mg Phenytoin Sodium (Dilantin Oral Suspension -) 200 mg NGT BID [facility] Last Admin: 07/23/18 09:45 Dose: 200 mg Risperidone (Risperdal -) 1 mg PO DAILY [facility] Last Admin: 07/23/18 09:45 Dose: 1 mg Vancomycin HCl (Vancomycin Oral Solution) 125 mg NGT Q6HPO [facility] Last Admin: 07/23/18 05:51 Dose: 125 mg - Objective Vital Signs: Vital Signs Temperature 98.1 F 07/23/18 07:12 Pulse Rate 100 H 07/23/18 07:12 Respiratory Rate 20 07/23/18 07:12 Blood Pressure 153/103 H 07/23/18 07:12 O2 Sat by Pulse Oximetry (%) 97 07/22/18 21:00 Constitutional: Yes: No Distress, Calm, Cachectic Cardiovascular: Yes: Regular Rate and Rhythm Respiratory: Yes: Regular, Rhonchi (DIFFUSE) Gastrointestinal: Yes: Normal Bowel Sounds, Soft Musculoskeletal: Yes: WNL Extremities: Yes: WNL Edema: Yes Edema: LLE: 1+, RLE: 1+ Peripheral Pulses WNL: Yes Neurological: Yes: Pre-Existing Deficit Labs: CBC, BMP 07/23/18 06:00 07/23/18 06:00 INR, PTT INR 1.62 (0.83-1.09) H 07/21/18 09:10 Problem List - Problems (1) Aspiration pneumonia Assessment/Plan: -NPO -NG tube, placement confirmed by Xray -Oneilay to use NG tube for medications only -PEG once stable -Surgery on board Code(s): J69.0 - PNEUMONITIS DUE TO INHALATION OF FOOD AND VOMIT (2) Failure to thrive Assessment/Plan: -Peg placement once medically stable -NPO except meds Code(s): [id number] - Qualifiers: Failure to thrive age range: in adult Qualified Code(s): R62.7 - Adult failure to thrive (3) Hydrocephalus Code(s): G91.9 - HYDROCEPHALUS, UNSPECIFIED (4) Malnutrition Assessment/Plan: -NPO except meds -Prosource -RD on board Code(s): E46 - UNSPECIFIED PROTEIN-CALORIE MALNUTRITION Qualifiers: Malnutrition type: protein-calorie malnutrition Protein-calorie malnutrition severity: severe Qualified Code(s): E43 - Unspecified severe protein-calorie malnutrition (5) Sepsis Assessment/Plan: -BC pending -ID on board -Started on Vancomycin and Zosyn -D/C Zosyn, Cdiff results positive -Afebrile -IVF -monitor daily labs Code(s): A41.9 - SEPSIS, UNSPECIFIED ORGANISM (6) Hypokalemia Assessment/Plan: -2/2 to NPO status -normalized -IVF to D5+N/S+KCl 40 meq @ 75cc/hr -daily labs Code(s): E87.6 - HYPOKALEMIA Assessment/Plan see problem list poor prognosis Palliative care consult
[2018-07-23] MEDS: D5-NS + 40 MEQ KCL - 40 MEQ/1,000 ML INFUS.BAG IV SCH (13:35)
--- NOTE | 2018-07-23 17:21 | PN ---
Progress Note, Physician History of Present Illness: Pt still with some loose BMs, nonverbal. No acute distress reported. WBC trend down. - Current Medication List Current Medications: Active Medications Acetaminophen (Tylenol Oral Solution -) 500 mg NGT Q4H PRN PRN Reason: PAIN OR FEVER Amino Acids (Prosource No Carb Liquid Pkt) 30 ml PO BID@0800,1730 [facility] Last Admin: 07/23/18 09:05 Dose: 30 ml Amlodipine Besylate (Norvasc -) 10 mg NGT DAILY [facility] Last Admin: 07/23/18 09:45 Dose: 10 mg Metronidazole (Flagyl 250mg Premixed Ivpb -) 250 mg in 50 mls @ 50 mls/hr IVPB Q8H-IV [facility] Last Admin: 07/23/18 10:43 Dose: 50 mls/hr Dextrose/Sodium Chloride (Dextrose 5%-Normal Saline+40 Meq Kcl -) 40 meq in 1, 000 mls @ 75 mls/hr IV ASDIR [facility] Last Admin: 07/23/18 13:35 Dose: 75 mls/hr Mineral Oil (Mineral Oil -) 30 ml PO Q8H PRN PRN Reason: DRYNESS Mirtazapine (Remeron -) 45 mg PO HS [facility] Last Admin: 07/22/18 21:23 Dose: 45 mg Olanzapine (Zyprexa -) 5 mg PO HS [facility] Last Admin: 07/22/18 21:29 Dose: 5 mg Phenytoin Sodium (Dilantin Injection -) 100 mg IVPB BID [facility] Last Admin: 07/22/18 10:28 Dose: 100 mg Phenytoin Sodium (Dilantin Oral Suspension -) 200 mg NGT BID [facility] Last Admin: 07/23/18 09:45 Dose: 200 mg Risperidone (Risperdal -) 1 mg PO DAILY [facility] Last Admin: 07/23/18 09:45 Dose: 1 mg Vancomycin HCl (Vancomycin Oral Solution) 125 mg NGT Q6HPO [facility] Last Admin: 07/23/18 13:35 Dose: 125 mg - Objective Vital Signs: Vital Signs Temperature 98.4 F 07/23/18 15:26 Pulse Rate 84 07/23/18 15:26 Respiratory Rate 18 07/23/18 15:26 Blood Pressure 125/75 07/23/18 15:26 O2 Sat by Pulse Oximetry (%) 97 07/23/18 09:00 Constitutional: Yes: Cachectic Eyes: Yes: Conjunctiva Clear Cardiovascular: Yes: Regular Rate and Rhythm Respiratory: Yes: Regular Gastrointestinal: Yes: Normal Bowel Sounds, Soft Edema: No Neurological: Yes: Other (noncommunicative) Labs: CBC, BMP 07/23/18 06:00 07/23/18 06:00 INR, PTT INR 1.62 (0.83-1.09) H 07/21/18 09:10 Microbiology 07/21/18 11:20 Blood - Peripheral Venous Blood Culture - Preliminary NO GROWTH OBTAINED AFTER 48 HOURS, INCUBATION TO CONTINUE FOR 3 DAYS. 07/21/18 11:00 Blood - Peripheral Venous Blood Culture - Preliminary NO GROWTH OBTAINED AFTER 48 HOURS, INCUBATION TO CONTINUE FOR 3 DAYS. 07/21/18 10:19 Stool Clostridium difficile Antigen (JORGE LUIS) - Final 07/21/18 10:19 Stool Clostridium difficile Toxin Assay - Final 07/13/18 14:25 Blood - Peripheral Venous Blood Culture - Final NO GROWTH AFTER 5 DAYS INCUBATION 07/13/18 14:25 Blood - Peripheral Venous Blood Culture - Final NO GROWTH AFTER 5 DAYS INCUBATION 07/13/18 13:00 Urine - Urine - Catheterized Urine Culture - Final NO GROWTH OBTAINED Problem List - Problems (1) Failure to thrive Code(s): [id number] - Qualifiers: Failure to thrive age range: in adult Qualified Code(s): R62.7 - Adult failure to thrive (2) Malnutrition Code(s): E46 - UNSPECIFIED PROTEIN-CALORIE MALNUTRITION Qualifiers: Malnutrition type: protein-calorie malnutrition Protein-calorie malnutrition severity: severe Qualified Code(s): E43 - Unspecified severe protein-calorie malnutrition Assessment/Plan C. difficile Colitis Leukocytosis Failure to thrive Cachexia -- wbc now normal, continue Vancomycin/Flagyl -- pt afebrile, without respiratory distress continue monitor
--- NOTE | 2018-07-23 19:16 | PN ---
Progress Note, Physician History of Present Illness: Pt seen and examined at bedside. No great change in status. - Current Medication List Current Medications: Active Medications Acetaminophen (Tylenol Oral Solution -) 500 mg NGT Q4H PRN PRN Reason: PAIN OR FEVER Amino Acids (Prosource No Carb Liquid Pkt) 30 ml PO BID@0800,1730 [facility] Last Admin: 07/23/18 18:22 Dose: 30 ml Amlodipine Besylate (Norvasc -) 10 mg NGT DAILY [facility] Last Admin: 07/23/18 09:45 Dose: 10 mg Metronidazole (Flagyl 250mg Premixed Ivpb -) 250 mg in 50 mls @ 50 mls/hr IVPB Q8H-IV [facility] Last Admin: 07/23/18 18:22 Dose: 50 mls/hr Dextrose/Sodium Chloride (Dextrose 5%-Normal Saline+40 Meq Kcl -) 40 meq in 1, 000 mls @ 75 mls/hr IV ASDIR [facility] Last Admin: 07/23/18 13:35 Dose: 75 mls/hr Mineral Oil (Mineral Oil -) 30 ml PO Q8H PRN PRN Reason: DRYNESS Mirtazapine (Remeron -) 45 mg PO HS [facility] Last Admin: 07/22/18 21:23 Dose: 45 mg Olanzapine (Zyprexa -) 5 mg PO HS [facility] Last Admin: 07/22/18 21:29 Dose: 5 mg Phenytoin Sodium (Dilantin Injection -) 100 mg IVPB BID [facility] Last Admin: 07/22/18 10:28 Dose: 100 mg Phenytoin Sodium (Dilantin Oral Suspension -) 200 mg NGT BID [facility] Last Admin: 07/23/18 09:45 Dose: 200 mg Risperidone (Risperdal -) 1 mg PO DAILY [facility] Last Admin: 07/23/18 09:45 Dose: 1 mg Vancomycin HCl (Vancomycin Oral Solution) 125 mg NGT Q6HPO [facility] Last Admin: 07/23/18 18:23 Dose: 125 mg - Objective Vital Signs: Vital Signs Temperature 98.0 F 07/23/18 17:30 Pulse Rate 95 H 07/23/18 17:30 Respiratory Rate 20 07/23/18 17:30 Blood Pressure 139/88 07/23/18 17:30 O2 Sat by Pulse Oximetry (%) 97 07/23/18 09:00 Constitutional: Yes: Calm Eyes: Yes: Conjunctiva Clear HENT: Yes: Atraumatic Cardiovascular: Yes: S1, S2 Respiratory: Yes: CTA Bilaterally Gastrointestinal: Yes: Normal Bowel Sounds, Soft Genitourinary: Yes: Incontinence Musculoskeletal: Yes: Muscle Weakness Neurological: Yes: Lethargy Labs: CBC, BMP 07/23/18 06:00 07/23/18 06:00 INR, PTT INR 1.62 (0.83-1.09) H 07/21/18 09:10 Problem List - Problems (1) Hypernatremia Code(s): E87.0 - HYPEROSMOLALITY AND HYPERNATREMIA (2) Failure to thrive Code(s): [id number] - Qualifiers: Failure to thrive age range: in adult Qualified Code(s): R62.7 - Adult failure to thrive (3) Malnutrition Code(s): E46 - UNSPECIFIED PROTEIN-CALORIE MALNUTRITION Qualifiers: Malnutrition type: protein-calorie malnutrition Protein-calorie malnutrition severity: severe Qualified Code(s): E43 - Unspecified severe protein-calorie malnutrition (4) Pneumonia Code(s): J18.9 - PNEUMONIA, UNSPECIFIED ORGANISM Assessment/Plan Current Medications Generic Name Dose Route Start Last Admin Trade Name Freq PRN Reason Stop Dose Admin Acetaminophen 500 mg 07/22/18 14:38 Tylenol Oral Solution - NGT Q4H PRN PAIN OR FEVER Amino Acids 30 ml 07/22/18 17:30 07/23/18 18:22 Prosource No Carb Liquid Pkt PO 30 ml BID@0800,1730 [facility] Administration Amlodipine Besylate 10 mg 07/23/18 10:00 07/23/18 09:45 Norvasc - NGT 10 mg DAILY [facility] Administration Metronidazole 250 mg in 50 mls @ 50 mls/hr 07/21/18 21:45 07/23/18 18:22 Flagyl 250mg Premixed Ivpb - IVPB 50 mls/hr Q8H-IV [facility] Administration Dextrose/Sodium Chloride 40 meq in 1,000 mls @ 75 mls/hr 07/22/18 11:45 07/23 13:35 Dextrose 5%-Normal Saline+40 Meq Kcl - IV 75 mls/hr ASDIR [facility] Administration Mineral Oil 30 ml 07/17/18 01:28 Mineral Oil - PO Q8H PRN DRYNESS Mirtazapine 45 mg 07/13/18 22:00 07/22/18 21:23 Remeron - PO 45 mg HS [facility] Administration Olanzapine 5 mg 07/13/18 22:00 07/22/18 21:29 Zyprexa - PO 5 mg HS [facility] Administration Phenytoin Sodium 100 mg 07/14/18 10:30 07/22/18 10:28 Dilantin Injection - IVPB 100 mg BID [facility] Administration Phenytoin Sodium 200 mg 07/22/18 22:00 07/23/18 09:45 Dilantin Oral Suspension - NGT 200 mg BID [facility] Administration Risperidone 1 mg 07/14/18 10:00 07/23/18 09:45 Risperdal - PO 1 mg DAILY [facility] Administration Vancomycin HCl 125 mg 07/22/18 18:00 07/23/18 18:23 Vancomycin Oral Solution NGT 125 mg Q6HPO [facility] Administration Impression 1. hypernatremia 2. hypothyroidism 3. failure to thrive 4. malnutrition 5. depression 6. htn 7. hypokalemia Plan - cont fluids, decrease potassium to 20 meq - monitor wbc - monitor lytes - GI follow up - pending peg placement - will follow
[2018-07-23] MEDS ORDERED: D5-NS + 20 MEQ KCL - 20 MEQ/1,000 ML INFUS.BAG IV SCH (19:30)
[2018-07-23] MEDS: PHENYTOIN SODIUM 100 MG/2 ML VIAL IVPB SCH (21:26)
[2018-07-23] MEDS: OLANZapine 5 MG TABLET PO SCH (21:26)
[2018-07-23] MEDS: MIRTAZAPINE 15 MG TABLET (FP) PO SCH (21:26)
[2018-07-24] MEDS: VANCOMYCIN 250 MG/5 ML ORAL SOLUTION NGT SCH ×4 (05:06→23:14)
[2018-07-24] MEDS ORDERED: PT OWN MED DRAWER 7, Y5N ONE ×4 (05:33→18:41)
[2018-07-24 06:59] LABS: EOS % 1.4 % (0-4.5); HEMATOCRIT 35.3 % (35.4-49); HEMOGLOBIN 11.6 GM/dL (11.7-16.9); LYMPH % 18.3 % (8-40); MCH 30.5 pg (25.7-33.7); MCHC 32.7 g/dl (32.0-35.9); MEAN CELL VOLUME 93.2 fl (80-96); MEAN PLT VOLUME 7.5 fl (7.5-11.1); MONO % 13.8 % (3.8-10.2); NEUT % 65.5 % (42.8-82.8); PLATELET COUNT 251 K/MM3 (134-434); RBC 3.79 M/mm3 (4.00-5.60); WHITE BLOOD COUNT 4.7 K/mm3 (4.0-10.0)
--- NOTE | 2018-07-24 08:30 | PN ---
Progress Note, Physician Chief Complaint: Came in With Aspiration pneumonia, which was treated by IV abx Now has gone into sepsis, source unidentified so far Plan for PEG placement once medically stable History of Present Illness: NAD Lethargic NG tube in place-ready to be used Unable to place PEG due to acute sepsis WBC normalized BC: Microbiology 07/21/18 11:20 Blood - Peripheral Venous Blood Culture - Preliminary NO GROWTH OBTAINED AFTER 48 HOURS, INCUBATION TO CONTINUE FOR 3 DAYS. 07/21/18 11:00 Blood - Peripheral Venous Blood Culture - Preliminary NO GROWTH OBTAINED AFTER 48 HOURS, INCUBATION TO CONTINUE FOR 3 DAYS. 07/21/18 10:19 Stool Clostridium difficile Antigen (JORGE LUIS) - Final- POSITIVE 07/21/18 10:19 Stool Clostridium difficile Toxin Assay - Final 07/13/18 14:25 Blood - Peripheral Venous Blood Culture - Final NO GROWTH AFTER 5 DAYS INCUBATION 07/13/18 14:25 Blood - Peripheral Venous Blood Culture - Final NO GROWTH AFTER 5 DAYS INCUBATION 07/13/18 13:00 Urine - Urine - Catheterized Urine Culture - Final NO GROWTH OBTAINED pt afebrile CT abd/pelvis: In comparison to a chest CT exam of 02/04/2018 interval development of a right lower lobe infiltrate is seen. Development of a small to moderate left pleural effusion is noted. A very small right pleural effusion is seen which appears slightly increased. Concentric wall edema is noted involving the right and left colon as discussed above. There is also similar concentric wall thickening involving the distal small bowel. These findings are suggestive of acute enterocolitis. Development of a small amount of nonspecific free fluid is noted within the abdomen and pelvis. Interval development of concentric subcutaneous edema is seen principally along the flanks. Ventriculoperitoneal shunt catheter in place. 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 Mild diffuse urinary bladder wall thickening which may be on the basis of chronic outlet obstruction versus acute or chronic cystitis. At least moderate prostate enlargement. - Current Medication List Current Medications: Active Medications Acetaminophen (Tylenol Oral Solution -) 500 mg NGT Q4H PRN PRN Reason: PAIN OR FEVER Amino Acids (Prosource No Carb Liquid Pkt) 30 ml PO BID@0800,1730 [facility] Last Admin: 07/23/18 18:22 Dose: 30 ml Amlodipine Besylate (Norvasc -) 10 mg NGT DAILY [facility] Last Admin: 07/23/18 09:45 Dose: 10 mg Metronidazole (Flagyl 250mg Premixed Ivpb -) 250 mg in 50 mls @ 50 mls/hr IVPB Q8H-IV [facility] Last Admin: 07/24/18 01:45 Dose: 50 mls/hr Dextrose/Sodium Chloride (Dextrose 5%-Normal Saline+20 Meq Kcl -) 20 meq in 1, 000 mls @ 75 mls/hr IV ASDIR [facility] Last Admin: 07/23/18 20:12 Dose: 75 mls/hr Mineral Oil (Mineral Oil -) 30 ml PO Q8H PRN PRN Reason: DRYNESS Mirtazapine (Remeron -) 45 mg PO HS [facility] Last Admin: 07/23/18 21:26 Dose: 45 mg Olanzapine (Zyprexa -) 5 mg PO HS [facility] Last Admin: 07/23/18 21:26 Dose: 5 mg Phenytoin Sodium (Dilantin Injection -) 100 mg IVPB BID [facility] Last Admin: 07/23/18 21:26 Dose: 100 mg Phenytoin Sodium (Dilantin Oral Suspension -) 200 mg NGT BID [facility] Last Admin: 07/23/18 21:26 Dose: 200 mg Risperidone (Risperdal -) 1 mg PO DAILY [facility] Last Admin: 07/23/18 09:45 Dose: 1 mg Vancomycin HCl (Vancomycin Oral Solution) 125 mg NGT Q6HPO [facility] Last Admin: 07/24/18 05:06 Dose: 125 mg - Objective Vital Signs: Vital Signs Temperature 98.3 F 07/24/18 07:01 Pulse Rate 93 H 07/24/18 07:01 Respiratory Rate 20 07/24/18 07:01 Blood Pressure 151/101 H 07/24/18 07:01 O2 Sat by Pulse Oximetry (%) 97 07/23/18 21:50 Constitutional: Yes: No Distress, Calm, Cachectic Cardiovascular: Yes: Regular Rate and Rhythm Respiratory: Yes: Regular Gastrointestinal: Yes: Normal Bowel Sounds, Soft, Abdomen, Obese Musculoskeletal: Yes: WNL Extremities: Yes: WNL Edema: Yes Edema: LLE: 1+, RLE: 1+ Peripheral Pulses WNL: Yes Neurological: Yes: Pre-Existing Deficit Labs: CBC, BMP 07/24/18 06:15 INR, PTT INR 1.62 (0.83-1.09) H 07/21/18 09:10 Problem List - Problems (1) Aspiration pneumonia Assessment/Plan: -NPO -NG tube, placement confirmed by Xray -Okay to use NG tube for medications only -PEG once stable -Surgery on board Code(s): J69.0 - PNEUMONITIS DUE TO INHALATION OF FOOD AND VOMIT (2) Failure to thrive Assessment/Plan: -Peg placement once medically stable -NPO except meds -NPO after midnight tonight for PEG placement tomorrow Code(s): [id number] - Qualifiers: Failure to thrive age range: in adult Qualified Code(s): R62.7 - Adult failure to thrive (3) Hydrocephalus Code(s): G91.9 - HYDROCEPHALUS, UNSPECIFIED (4) Malnutrition Assessment/Plan: -NPO except meds -Prosource -RD on board Code(s): E46 - UNSPECIFIED PROTEIN-CALORIE MALNUTRITION Qualifiers: Malnutrition type: protein-calorie malnutrition Protein-calorie malnutrition severity: severe Qualified Code(s): E43 - Unspecified severe protein-calorie malnutrition (5) Sepsis Assessment/Plan: -BC pending -ID on board -On Vancomycin and Zosyn -Afebrile -IVF -monitor daily labs Code(s): A41.9 - SEPSIS, UNSPECIFIED ORGANISM (6) Hypokalemia Assessment/Plan: -2/2 to NPO status -normalized -IVF to D5+N/S+KCl 40 meq @ 50cc/hr -daily labs Code(s): E87.6 - HYPOKALEMIA Assessment/Plan see problem list poor prognosis Palliative care consult
[2018-07-24] MEDS: AMINO ACIDS/PROTEIN HYDROLYS 30 ML LIQUID.PKT PO SCH ×2 (08:32→17:45)
[2018-07-24 08:56] LABS: ALBUMIN 2.1 g/dl (3.4-5.0); ALK PHOS 105 U/L (45-117); ANION GAP 7 MMOL/L (8-16); BILIRUBIN,TOTAL 0.3 mg/dL (0.2-1); BLOOD UREA NITROGEN 5 mg/dL (7-18); CALCIUM 7.6 mg/dL (8.5-10.1); CHLORIDE 105 mmol/L (98-107); CO2 27 mmol/L (21-32); CREATININE 0.3 mg/dL (0.55-1.3); GLUCOSE,RANDOM 104 mg/dL (74-106); PHOSPHOROUS 2.3 mg/dL (2.5-4.9); POTASSIUM 3.9 mmol/L (3.5-5.1); SGOT/AST 14 U/L (15-37); SGPT/ALT 13 U/L (13-61); SODIUM 139 mmol/L (136-145); TOT PROT 5.8 g/dl (6.4-8.2)
[2018-07-24] MEDS: risperiDONE 1 MG TABLET (FP) PO SCH (10:15)
[2018-07-24] MEDS: amLODIPine BESYLATE 10 MG TABLET (FP) NGT SCH (10:15)
[2018-07-24] MEDS: PHENYTOIN SODIUM 100 MG/2 ML VIAL IVPB SCH ×2 (10:16→23:13)
[2018-07-24] MEDS: PHENYTOIN 100 MG/4 ML U-D CUP NGT SCH ×2 (10:16→22:47)
--- NOTE | 2018-07-24 12:42 | PN ---
Progress Note, Physician History of Present Illness: Pt remains weak but without acute distress. No diarrhea reported today. Remains afebrile. - Current Medication List Current Medications: Active Medications Acetaminophen (Tylenol Oral Solution -) 500 mg NGT Q4H PRN PRN Reason: PAIN OR FEVER Amino Acids (Prosource No Carb Liquid Pkt) 30 ml PO BID@0800,1730 [facility] Last Admin: 07/24/18 08:32 Dose: 30 ml Amlodipine Besylate (Norvasc -) 10 mg NGT DAILY [facility] Last Admin: 07/24/18 10:15 Dose: 10 mg Metronidazole (Flagyl 250mg Premixed Ivpb -) 250 mg in 50 mls @ 50 mls/hr IVPB Q8H-IV [facility] Last Admin: 07/24/18 10:15 Dose: 50 mls/hr Dextrose/Sodium Chloride (Dextrose 5%-Normal Saline+20 Meq Kcl -) 20 meq in 1, 000 mls @ 50 mls/hr IV ASDIR [facility] Mineral Oil (Mineral Oil -) 30 ml PO Q8H PRN PRN Reason: DRYNESS Mirtazapine (Remeron -) 45 mg PO HS [facility] Last Admin: 07/23/18 21:26 Dose: 45 mg Olanzapine (Zyprexa -) 5 mg PO HS [facility] Last Admin: 07/23/18 21:26 Dose: 5 mg Phenytoin Sodium (Dilantin Injection -) 100 mg IVPB BID [facility] Last Admin: 07/24/18 10:16 Dose: Not Given Phenytoin Sodium (Dilantin Oral Suspension -) 200 mg NGT BID [facility] Last Admin: 07/24/18 10:16 Dose: 200 mg Risperidone (Risperdal -) 1 mg PO DAILY [facility] Last Admin: 07/24/18 10:15 Dose: 1 mg Vancomycin HCl (Vancomycin Oral Solution) 125 mg NGT Q6HPO [facility] Last Admin: 07/24/18 05:06 Dose: 125 mg - Objective Vital Signs: Vital Signs Temperature 98.3 F 07/24/18 07:01 Pulse Rate 93 H 07/24/18 07:01 Respiratory Rate 20 07/24/18 07:01 Blood Pressure 151/101 H 07/24/18 07:01 O2 Sat by Pulse Oximetry (%) 97 07/23/18 21:50 Constitutional: Yes: No Distress HENT: Yes: Other (NGT in place) Cardiovascular: Yes: Tachycardia Respiratory: Yes: Regular Gastrointestinal: Yes: Normal Bowel Sounds, Soft Extremities: Yes: WNL Neurological: Yes: Lethargy Labs: CBC, BMP 07/24/18 06:15 07/24/18 06:15 INR, PTT INR 1.62 (0.83-1.09) H 07/21/18 09:10 Microbiology 07/21/18 11:20 Blood - Peripheral Venous Blood Culture - Preliminary NO GROWTH OBTAINED AFTER 72 HOURS, INCUBATION TO CONTINUE FOR 2 DAYS. 07/21/18 11:00 Blood - Peripheral Venous Blood Culture - Preliminary NO GROWTH OBTAINED AFTER 72 HOURS, INCUBATION TO CONTINUE FOR 2 DAYS. 07/21/18 10:19 Stool Clostridium difficile Antigen (JORGE LUIS) - Final 07/21/18 10:19 Stool Clostridium difficile Toxin Assay - Final 07/13/18 14:25 Blood - Peripheral Venous Blood Culture - Final NO GROWTH AFTER 5 DAYS INCUBATION 07/13/18 14:25 Blood - Peripheral Venous Blood Culture - Final NO GROWTH AFTER 5 DAYS INCUBATION 07/13/18 13:00 Urine - Urine - Catheterized Urine Culture - Final NO GROWTH OBTAINED Problem List - Problems (1) Failure to thrive Code(s): [id number] - Qualifiers: Failure to thrive age range: in adult Qualified Code(s): R62.7 - Adult failure to thrive (2) Malnutrition Code(s): E46 - UNSPECIFIED PROTEIN-CALORIE MALNUTRITION Qualifiers: Malnutrition type: protein-calorie malnutrition Protein-calorie malnutrition severity: severe Qualified Code(s): E43 - Unspecified severe protein-calorie malnutrition Assessment/Plan Sepsis C. difficile Colitis Leukocytosis - resolved Failure to thrive Cachexia -- diarrhea resolving, continue vancomycin and flagyl -- for possible peg placement tomorrow -- continue supportive care
--- NOTE | 2018-07-24 17:09 | PN ---
Progress Note, Physician History of Present Illness: Pt seen and examined at bedside. He remains lethargic. - Current Medication List Current Medications: Active Medications Acetaminophen (Tylenol Oral Solution -) 500 mg NGT Q4H PRN PRN Reason: PAIN OR FEVER Amino Acids (Prosource No Carb Liquid Pkt) 30 ml PO BID@0800,1730 [facility] Last Admin: 07/24/18 08:32 Dose: 30 ml Amlodipine Besylate (Norvasc -) 10 mg NGT DAILY [facility] Last Admin: 07/24/18 10:15 Dose: 10 mg Metronidazole (Flagyl 250mg Premixed Ivpb -) 250 mg in 50 mls @ 50 mls/hr IVPB Q8H-IV [facility] Last Admin: 07/24/18 10:15 Dose: 50 mls/hr Dextrose/Sodium Chloride (Dextrose 5%-Normal Saline+20 Meq Kcl -) 20 meq in 1, 000 mls @ 50 mls/hr IV ASDIR FELISHA Mineral Oil (Mineral Oil -) 30 ml PO Q8H PRN PRN Reason: DRYNESS Mirtazapine (Remeron -) 45 mg PO HS [facility] Last Admin: 07/23/18 21:26 Dose: 45 mg Olanzapine (Zyprexa -) 5 mg PO HS [facility] Last Admin: 07/23/18 21:26 Dose: 5 mg Phenytoin Sodium (Dilantin Injection -) 100 mg IVPB BID [facility] Last Admin: 07/24/18 10:16 Dose: Not Given Phenytoin Sodium (Dilantin Oral Suspension -) 200 mg NGT BID [facility] Last Admin: 07/24/18 10:16 Dose: 200 mg Risperidone (Risperdal -) 1 mg PO DAILY [facility] Last Admin: 07/24/18 10:15 Dose: 1 mg Vancomycin HCl (Vancomycin Oral Solution) 125 mg NGT Q6HPO [facility] Last Admin: 07/24/18 13:45 Dose: 125 mg - Objective Vital Signs: Vital Signs Temperature 97.7 F 07/24/18 14:20 Pulse Rate 107 H 07/24/18 14:20 Respiratory Rate 20 07/24/18 14:20 Blood Pressure 111/73 07/24/18 14:20 O2 Sat by Pulse Oximetry (%) 97 07/24/18 09:00 Constitutional: Yes: Calm Eyes: Yes: Conjunctiva Clear HENT: Yes: Atraumatic Cardiovascular: Yes: S1, S2 Respiratory: Yes: CTA Bilaterally Gastrointestinal: Yes: Soft Genitourinary: Yes: Incontinence Musculoskeletal: Yes: Muscle Weakness Edema: No Neurological: Yes: Lethargy Labs: CBC, BMP 07/24/18 06:15 07/24/18 06:15 INR, PTT INR 1.62 (0.83-1.09) H 07/21/18 09:10 Problem List - Problems (1) Hypernatremia Code(s): E87.0 - HYPEROSMOLALITY AND HYPERNATREMIA (2) Failure to thrive Code(s): [id number] - Qualifiers: Failure to thrive age range: in adult Qualified Code(s): R62.7 - Adult failure to thrive (3) Malnutrition Code(s): E46 - UNSPECIFIED PROTEIN-CALORIE MALNUTRITION Qualifiers: Malnutrition type: protein-calorie malnutrition Protein-calorie malnutrition severity: severe Qualified Code(s): E43 - Unspecified severe protein-calorie malnutrition (4) Pneumonia Code(s): J18.9 - PNEUMONIA, UNSPECIFIED ORGANISM Assessment/Plan Current Medications Generic Name Dose Route Start Last Admin Trade Name Freq PRN Reason Stop Dose Admin Acetaminophen 500 mg 07/22/18 14:38 Tylenol Oral Solution - NGT Q4H PRN PAIN OR FEVER Amino Acids 30 ml 07/22/18 17:30 07/24/18 08:32 Prosource No Carb Liquid Pkt PO 30 ml BID@0800,1730 [facility] Administration Amlodipine Besylate 10 mg 07/23/18 10:00 07/24/18 10:15 Norvasc - NGT 10 mg DAILY [facility] Administration Metronidazole 250 mg in 50 mls @ 50 mls/hr 07/21/18 21:45 07/24/18 10:15 Flagyl 250mg Premixed Ivpb - IVPB 50 mls/hr Q8H-IV [facility] Administration Dextrose/Sodium Chloride 20 meq in 1,000 mls @ 50 mls/hr 07/24/18 08:29 Dextrose 5%-Normal Saline+20 Meq Kcl - IV ASDIR FELISHA Mineral Oil 30 ml 07/17/18 01:28 Mineral Oil - PO Q8H PRN DRYNESS Mirtazapine 45 mg 07/13/18 22:00 07/23/18 21:26 Remeron - PO 45 mg HS [facility] Administration Olanzapine 5 mg 10/17/18 22:00 07/23/18 21:26 Zyprexa - PO 5 mg HS [facility] Administration Phenytoin Sodium 100 mg 07/14/18 10:30 07/24/18 10:16 Dilantin Injection - IVPB Not Given BID [facility] Phenytoin Sodium 200 mg 07/22/18 22:00 07/24/18 10:16 Dilantin Oral Suspension - NGT 200 mg BID [facility] Administration Risperidone 1 mg 07/14/18 10:00 07/24/18 10:15 Risperdal - PO 1 mg DAILY [facility] Administration Vancomycin HCl 125 mg 07/22/18 18:00 07/24/18 13:45 Vancomycin Oral Solution NGT 125 mg Q6HPO [facility] Administration Laboratory Tests 07/24/18 06:15 Phosphorus 2.3 L Impression 1. hypernatremia 2. hypothyroidism 3. failure to thrive 4. malnutrition 5. depression 6. htn 7. hypokalemia Plan - cont fluids - replace phos - repeat labs in am - pending peg tube - will follow
[2018-07-24] MEDS ORDERED: POTASSIUM PHOSPHATE 20 MM in DEXTROSE 5%-WATER - 250 ML IVPB ONE (17:30)
[2018-07-24] MEDS: D5-NS + 20 MEQ KCL - 20 MEQ/1,000 ML INFUS.BAG IV SCH (17:50)
[2018-07-24] MEDS: OLANZapine 5 MG TABLET PO SCH (22:47)
[2018-07-24] MEDS ORDERED: NAPH,MB-DB/K PH,MBDB POWDER PACKET NGT ONE (23:04)
[2018-07-24] MEDS ORDERED: metroNIDAZOLE 250 MG TABLET NGT ONE (23:07)
[2018-07-24] MEDS: MIRTAZAPINE 15 MG TABLET (FP) PO SCH (23:14)
--- NOTE | 2018-07-24 23:15 | HOSP ---
Subjective - Review of Symptoms Events since last encounter: Hospitalist Encounter Notified by the nursing stock control supervisor that the patient needs a peripheral IV site. Several attempts by nursing staff was unsuccessful Subjective: Arrived to bedside, patient is non-verbal, lethargic at baseline Attempts made x2 unsuccessful Plan Placed orders for Flagyl, K- phos to be given via NGT tonight Recommend PICC line placement for IV medications Physical Examination Vital Signs: Vital Signs Temperature 98.6 F 07/24/18 17:35 Pulse Rate 100 H 07/24/18 17:35 Respiratory Rate 20 07/24/18 17:35 Blood Pressure 115/79 07/24/18 17:35 O2 Sat by Pulse Oximetry (%) 97 07/24/18 09:00 Constitutional: Yes: Cachectic Eyes: Yes: Conjunctiva Clear HENT: Yes: WNL, Atraumatic, Normocephalic Neck: Yes: WNL, Supple, Trachea Midline Cardiovascular: Yes: Regular Rate and Rhythm, S1, S2 Respiratory: Yes: Diminished, On Nasal O2, Rhonchi Gastrointestinal: Yes: Normal Bowel Sounds, Soft Edema: No Peripheral Pulses WNL: Yes Neurological: Yes: Lethargy Labs: CBC, BMP 07/24/18 06:15 07/24/18 06:15 Laboratory Results - last 24 hr 07/24/18 07/24/18 06:15 06:15 WBC 4.7 RBC 3.79 L Hgb 11.6 L Hct 35.3 L MCV 93.2 MCH 30.5 MCHC 32.7 RDW 16.0 H Plt Count 251 D MPV 7.5 D Absolute Neuts (auto) 3.1 Neutrophils % 65.5 D Lymphocytes % 18.3 D Monocytes % 13.8 H Eosinophils % 1.4 D Basophils % 1.0 Nucleated RBC % 0 Sodium 139 Potassium 3.9 Chloride 105 Carbon Dioxide 27 Anion Gap 7 L BUN 5 L Creatinine 0.3 L Creat Clearance w eGFR > 60 Random Glucose 104 Calcium 7.6 L Phosphorus 2.3 L Total Bilirubin 0.3 AST 14 L ALT 13 Alkaline Phosphatase 105 Total Protein 5.8 L Albumin 2.1 L Intake & Output 07/21/18 07/22/18 07/23/18 07/24/18 23:59 23:59 23:59 23:59 Intake Total 675 1177 2750 950 Balance 675 1177 2750 950 Current Medications Generic Name Dose Route Start Last Admin Trade Name Freemi PRN Reason Stop Dose Admin Acetaminophen 500 mg 07/22/18 14:38 Tylenol Oral Solution - NGT Q4H PRN PAIN OR FEVER Amino Acids 30 ml 07/22/18 17:30 07/24/18 17:45 Prosource No Carb Liquid Pkt PO 30 ml BID@0800,1730 [facility] Administration Amlodipine Besylate 10 mg 07/23/18 10:00 07/24/18 10:15 Norvasc - NGT 10 mg DAILY [facility] Administration Metronidazole 250 mg in 50 mls @ 50 mls/hr 07/21/18 21:45 07/24/18 17:45 Flagyl 250mg Premixed Ivpb - IVPB 50 mls/hr Q8H-IV [facility] Administration Dextrose/Sodium Chloride 20 meq in 1,000 mls @ 50 mls/hr 07/24/18 08:29 07/24 17:50 Dextrose 5%-Normal Saline+20 Meq Kcl - IV 50 mls/hr ASDIR FELISHA Administration Mineral Oil 30 ml 07/17/18 01:28 Mineral Oil - PO Q8H PRN DRYNESS Mirtazapine 45 mg 07/13/18 22:00 07/24/18 23:14 Remeron - PO 45 mg HS [facility] Administration Olanzapine 5 mg 07/13/18 22:00 07/24/18 22:47 Zyprexa - PO 5 mg HS [facility] Administration Phenytoin Sodium 100 mg 07/14/18 10:30 07/24/18 23:13 Dilantin Injection - IVPB Not Given BID [facility] Phenytoin Sodium 200 mg 07/22/18 22:00 07/24/18 22:47 Dilantin Oral Suspension - NGT 200 mg BID [facility] Administration Risperidone 1 mg 07/14/18 10:00 07/24/18 10:15 Risperdal - PO 1 mg DAILY [facility] Administration Vancomycin HCl 125 mg 07/22/18 18:00 07/24/18 23:14 Vancomycin Oral Solution NGT 125 mg Q6HPO [facility] Administration
[2018-07-25] MEDS: VANCOMYCIN 250 MG/5 ML ORAL SOLUTION NGT SCH ×3 (06:42→17:12)
[2018-07-25 06:51] LABS: BASO % 0.9 % (0-2.0); EOS % 0.9 % (0-4.5); HEMATOCRIT 37.1 % (35.4-49); LYMPH % 15.3 % (8-40); MCH 30.2 pg (25.7-33.7); MCHC 32.3 g/dl (32.0-35.9); MEAN CELL VOLUME 93.2 fl (80-96); MEAN PLT VOLUME 7.7 fl (7.5-11.1); MONO % 13.4 % (3.8-10.2); NEUT % 69.5 % (42.8-82.8); PLATELET COUNT 254 K/MM3 (134-434); RBC 3.98 M/mm3 (4.00-5.60); RDW 15.9 % (11.9-15.9); WHITE BLOOD COUNT 6.6 K/mm3 (4.0-10.0)
[2018-07-25 07:03] LABS: INR 1.39 (0.83-1.09); PROTHROMBIN TIME (PATIENT) 16.4 SEC (9.7-13.0)
[2018-07-25 07:44] LABS: ALBUMIN 2.3 g/dl (3.4-5.0); ALK PHOS 119 U/L (45-117); ANION GAP 9 MMOL/L (8-16); BILIRUBIN,TOTAL 0.6 mg/dL (0.2-1); BLOOD UREA NITROGEN 7 mg/dL (7-18); CALCIUM 7.9 mg/dL (8.5-10.1); CHLORIDE 102 mmol/L (98-107); CO2 28 mmol/L (21-32); CREATININE 0.4 mg/dL (0.55-1.3); GLUCOSE,RANDOM 87 mg/dL (74-106); POTASSIUM 4.2 mmol/L (3.5-5.1); SGOT/AST 12 U/L (15-37); SGPT/ALT 15 U/L (13-61); SODIUM 139 mmol/L (136-145); TOT PROT 6.4 g/dl (6.4-8.2)
--- NOTE | 2018-07-25 08:46 | PN ---
Progress Note, Physician Chief Complaint: PATIENT SCHEDULED FOR GTUBE PLACEMENT HCP AWARE POOR OVERALL PROGNOSIS HOWEVER AT THE BENEFIT OUTWEIGHS THE RISK - Current Medication List Current Medications: Active Medications Acetaminophen (Tylenol Oral Solution -) 500 mg NGT Q4H PRN PRN Reason: PAIN OR FEVER Amino Acids (Prosource No Carb Liquid Pkt) 30 ml PO BID@0800,1730 [facility] Last Admin: 07/24/18 17:45 Dose: 30 ml Amlodipine Besylate (Norvasc -) 10 mg NGT DAILY [facility] Last Admin: 07/24/18 10:15 Dose: 10 mg Metronidazole (Flagyl 250mg Premixed Ivpb -) 250 mg in 50 mls @ 50 mls/hr IVPB Q8H-IV [facility] Last Admin: 07/25/18 02:06 Dose: Not Given Dextrose/Sodium Chloride (Dextrose 5%-Normal Saline+20 Meq Kcl -) 20 meq in 1, 000 mls @ 50 mls/hr IV ASDIR [facility] Last Admin: 07/24/18 17:50 Dose: 50 mls/hr Mineral Oil (Mineral Oil -) 30 ml PO Q8H PRN PRN Reason: DRYNESS Mirtazapine (Remeron -) 45 mg PO HS [facility] Last Admin: 07/24/18 23:14 Dose: 45 mg Olanzapine (Zyprexa -) 5 mg PO HS [facility] Last Admin: 07/24/18 22:47 Dose: 5 mg Phenytoin Sodium (Dilantin Injection -) 100 mg IVPB BID [facility] Last Admin: 07/24/18 23:13 Dose: Not Given Phenytoin Sodium (Dilantin Oral Suspension -) 200 mg NGT BID [facility] Last Admin: 07/24/18 22:47 Dose: 200 mg Risperidone (Risperdal -) 1 mg PO DAILY [facility] Last Admin: 07/24/18 10:15 Dose: 1 mg Vancomycin HCl (Vancomycin Oral Solution) 125 mg NGT Q6HPO [facility] Last Admin: 07/25/18 06:42 Dose: Not Given - Objective Vital Signs: Vital Signs Temperature 97.5 F L 07/25/18 07:03 Pulse Rate 99 H 07/25/18 07:03 Respiratory Rate 20 07/25/18 07:03 Blood Pressure 132/93 07/25/18 07:03 O2 Sat by Pulse Oximetry (%) 97 07/24/18 21:00 Constitutional: Yes: Moderate Distress Eyes: Yes: Other HENT: Yes: Other Neck: Yes: Other Cardiovascular: Yes: Tachycardia Respiratory: Yes: Other Gastrointestinal: Yes: Other Genitourinary: Yes: Incontinence Musculoskeletal: Yes: Muscle Weakness Extremities: Yes: Other Edema: No Peripheral Pulses WNL: Yes Integumentary: Yes: Pressure Ulcer, Other Wound/Incision: Yes: Dressing Dry and Intact Neurological: Yes: Other ...Motor Strength: LLE, RLE Psychiatric: Yes: Other Labs: CBC, BMP 07/25/18 06:30 07/25/18 06:30 INR, PTT INR 1.39 (0.83-1.09) H 07/25/18 06:30 Problem List - Problems (1) Malnutrition Code(s): E46 - UNSPECIFIED PROTEIN-CALORIE MALNUTRITION Qualifiers: Malnutrition type: protein-calorie malnutrition Protein-calorie malnutrition severity: severe Qualified Code(s): E43 - Unspecified severe protein-calorie malnutrition (2) Failure to thrive Code(s): [id number] - Qualifiers: Failure to thrive age range: in adult Qualified Code(s): R62.7 - Adult failure to thrive (3) Sepsis Code(s): A41.9 - SEPSIS, UNSPECIFIED ORGANISM (4) Aspiration into respiratory tract Code(s): T17.908A - UNSP FB IN RESP TRACT, PART UNSP CAUSING OTH INJURY, INIT Assessment/Plan SCHEDULED FOR GTUBE WITH SURGERY AND CTS BENEFIT OUTWEIGHS THE RISK POOR OVERALL PROGNOSIS WITH POOR QUALITY OF LIFE. NGT FOR MEDS IV ACCESS NEEDED, SURGERY TO PLACE DVT PROPHYLAXIS AND SEIZURE PRECAUTIONS WOUND CARE SACRAL ULCER STAGE 2
[2018-07-25] MEDS: PHENYTOIN 100 MG/4 ML U-D CUP NGT SCH ×2 (08:58→10:45)
[2018-07-25] MEDS: amLODIPine BESYLATE 10 MG TABLET (FP) NGT SCH ×2 (08:58→10:45)
--- NOTE | 2018-07-25 09:14 | PN ---
Progress Note (short form) - Note Progress Note: DISCUSSED WITH STEPHANIE THE HCP, PATIENT IS CONSIDERABLY ILL WITH SEPSIS AND IS A POOR CANDIDATE FOR GTUBE PLACEMENT WITH CONSIDERABLE HIGH RISK WITH OPERATIVE AND POST-OPERATIVE RECOVERY. I SPOKE WITH STEPHANIE AND HE HAS OPTED FOR HOSPICE CARE AT [facility] OR SOMEWHERE IN [place] WHERE HE LIVES. THE SURGERY FOR GTUBE PLACEMENT IS CANCELLED. Problem List - Problems (1) Malnutrition Code(s): E46 - UNSPECIFIED PROTEIN-CALORIE MALNUTRITION Qualifiers: Malnutrition type: protein-calorie malnutrition Protein-calorie malnutrition severity: severe Qualified Code(s): E43 - Unspecified severe protein-calorie malnutrition (2) Failure to thrive Code(s): [id number] - Qualifiers: Failure to thrive age range: in adult Qualified Code(s): R62.7 - Adult failure to thrive (3) Sepsis Code(s): A41.9 - SEPSIS, UNSPECIFIED ORGANISM (4) Aspiration into respiratory tract Code(s): T17.908A - UNSP FB IN RESP TRACT, PART UNSP CAUSING OTH INJURY, INIT
[2018-07-25] MEDS: AMINO ACIDS/PROTEIN HYDROLYS 30 ML LIQUID.PKT PO SCH ×2 (10:44→18:44)
[2018-07-25] MEDS: risperiDONE 1 MG TABLET (FP) PO SCH (10:44)
[2018-07-25] MEDS: D5-NS + 20 MEQ KCL - 20 MEQ/1,000 ML INFUS.BAG IV SCH ×2 (10:45→19:26)
--- NOTE | 2018-07-25 12:10 | PN ---
Progress Note, Physician History of Present Illness: patient stable still with ng tube lethargy - Current Medication List Current Medications: Active Medications Acetaminophen (Tylenol Oral Solution -) 500 mg NGT Q4H PRN PRN Reason: PAIN OR FEVER Amino Acids (Prosource No Carb Liquid Pkt) 30 ml PO BID@0800,1730 [facility] Last Admin: 07/25/18 10:44 Dose: 30 ml Amlodipine Besylate (Norvasc -) 10 mg NGT DAILY [facility] Last Admin: 07/25/18 10:45 Dose: Not Given Metronidazole (Flagyl 250mg Premixed Ivpb -) 250 mg in 50 mls @ 50 mls/hr IVPB Q8H-IV [facility] Last Admin: 07/25/18 10:45 Dose: Not Given Dextrose/Sodium Chloride (Dextrose 5%-Normal Saline+20 Meq Kcl -) 20 meq in 1, 000 mls @ 50 mls/hr IV ASDIR [facility] Last Admin: 07/25/18 10:45 Dose: Not Given Mineral Oil (Mineral Oil -) 30 ml PO Q8H PRN PRN Reason: DRYNESS Mirtazapine (Remeron -) 45 mg PO HS [facility] Last Admin: 07/24/18 23:14 Dose: 45 mg Olanzapine (Zyprexa -) 5 mg PO HS [facility] Last Admin: 07/24/18 22:47 Dose: 5 mg Phenytoin Sodium (Dilantin Injection -) 100 mg IVPB BID [facility] Last Admin: 07/24/18 23:13 Dose: Not Given Phenytoin Sodium (Dilantin Oral Suspension -) 200 mg NGT BID [facility] Last Admin: 07/25/18 10:45 Dose: Not Given Risperidone (Risperdal -) 1 mg PO DAILY [facility] Last Admin: 07/25/18 10:44 Dose: 1 mg Vancomycin HCl (Vancomycin Oral Solution) 125 mg NGT Q6HPO [facility] Last Admin: 07/25/18 06:42 Dose: Not Given - Objective Vital Signs: Vital Signs Temperature 97.5 F L 07/25/18 07:03 Pulse Rate 99 H 07/25/18 07:03 Respiratory Rate 20 07/25/18 07:03 Blood Pressure 132/93 07/25/18 07:03 O2 Sat by Pulse Oximetry (%) 97 07/24/18 21:00 Constitutional: Yes: No Distress, Calm, Other (failure to thrive) Cardiovascular: Yes: Regular Rate and Rhythm Respiratory: Yes: Regular, CTA Bilaterally Gastrointestinal: Yes: Normal Bowel Sounds, Soft Musculoskeletal: Yes: WNL Extremities: Yes: WNL Neurological: Yes: Lethargy Labs: CBC, BMP 07/25/18 06:30 07/25/18 06:30 INR, PTT INR 1.39 (0.83-1.09) H 07/25/18 06:30 Assessment/Plan Problem List - Problems (1) Malnutrition Code(s): E46 - UNSPECIFIED PROTEIN-CALORIE MALNUTRITION Qualifiers: Malnutrition type: protein-calorie malnutrition Protein-calorie malnutrition severity: severe Qualified Code(s): E43 - Unspecified severe protein-calorie malnutrition (2) Failure to thrive Code(s): [id number] - Qualifiers: Failure to thrive age range: in adult Qualified Code(s): R62.7 - Adult failure to thrive (3) Sepsis Code(s): A41.9 - SEPSIS, UNSPECIFIED ORGANISM (4) Aspiration into respiratory tract Code(s): T17.908A - UNSP FB IN RESP TRACT, PART UNSP CAUSING OTH INJURY, INIT cdiff plan continue current mgmt nutrition rest as per the team
--- NOTE | 2018-07-25 16:26 | PN ---
Progress Note, Physician History of Present Illness: Pt seen and examined at bedside. He appears comfortable. He does not have an IV. - Current Medication List Current Medications: Active Medications Acetaminophen (Tylenol Oral Solution -) 500 mg NGT Q4H PRN PRN Reason: PAIN OR FEVER Amino Acids (Prosource No Carb Liquid Pkt) 30 ml PO BID@0800,1730 [facility] Last Admin: 07/25/18 10:44 Dose: 30 ml Amlodipine Besylate (Norvasc -) 10 mg NGT DAILY [facility] Last Admin: 07/25/18 10:45 Dose: Not Given Metronidazole (Flagyl 250mg Premixed Ivpb -) 250 mg in 50 mls @ 50 mls/hr IVPB Q8H-IV [facility] Last Admin: 07/25/18 10:45 Dose: Not Given Dextrose/Sodium Chloride (Dextrose 5%-Normal Saline+20 Meq Kcl -) 20 meq in 1, 000 mls @ 50 mls/hr IV ASDIR [facility] Last Admin: 07/25/18 10:45 Dose: Not Given Mineral Oil (Mineral Oil -) 30 ml PO Q8H PRN PRN Reason: DRYNESS Mirtazapine (Remeron -) 45 mg PO HS [facility] Last Admin: 07/24/18 23:14 Dose: 45 mg Olanzapine (Zyprexa -) 5 mg PO HS [facility] Last Admin: 07/24/18 22:47 Dose: 5 mg Phenytoin Sodium (Dilantin Injection -) 100 mg IVPB BID [facility] Last Admin: 07/24/18 23:13 Dose: Not Given Phenytoin Sodium (Dilantin Oral Suspension -) 200 mg NGT BID [facility] Last Admin: 07/25/18 10:45 Dose: Not Given Risperidone (Risperdal -) 1 mg PO DAILY [facility] Last Admin: 07/25/18 10:44 Dose: 1 mg Vancomycin HCl (Vancomycin Oral Solution) 125 mg NGT Q6HPO [facility] Last Admin: 07/25/18 06:42 Dose: Not Given - Objective Vital Signs: Vital Signs Temperature 98.5 F 07/25/18 14:58 Pulse Rate 114 H 07/25/18 14:58 Respiratory Rate 20 07/25/18 14:58 Blood Pressure 120/81 07/25/18 14:58 O2 Sat by Pulse Oximetry (%) 97 07/24/18 21:00 Constitutional: Yes: Mild Distress Eyes: Yes: Conjunctiva Clear Cardiovascular: Yes: S1, S2 Respiratory: Yes: CTA Bilaterally Gastrointestinal: Yes: Normal Bowel Sounds, Soft Genitourinary: Yes: Incontinence Musculoskeletal: Yes: Muscle Weakness Edema: Yes Edema: LLE: Trace, RLE: Trace Neurological: Yes: Lethargy Labs: CBC, BMP 07/25/18 06:30 07/25/18 06:30 INR, PTT INR 1.39 (0.83-1.09) H 07/25/18 06:30 Problem List - Problems (1) Hypernatremia Code(s): E87.0 - HYPEROSMOLALITY AND HYPERNATREMIA (2) Failure to thrive Code(s): [id number] - Qualifiers: Failure to thrive age range: in adult Qualified Code(s): R62.7 - Adult failure to thrive (3) Malnutrition Code(s): E46 - UNSPECIFIED PROTEIN-CALORIE MALNUTRITION Qualifiers: Malnutrition type: protein-calorie malnutrition Protein-calorie malnutrition severity: severe Qualified Code(s): E43 - Unspecified severe protein-calorie malnutrition (4) Pneumonia Code(s): J18.9 - PNEUMONIA, UNSPECIFIED ORGANISM Assessment/Plan Current Medications Generic Name Dose Route Start Last Admin Trade Name Freq PRN Reason Stop Dose Admin Acetaminophen 500 mg 07/22/18 14:38 Tylenol Oral Solution - NGT Q4H PRN PAIN OR FEVER Amino Acids 30 ml 07/22/18 17:30 07/25/18 10:44 Prosource No Carb Liquid Pkt PO 30 ml BID@0800,1730 FELISHA Administration Amlodipine Besylate 10 mg 07/23/18 10:00 07/25/18 10:45 Norvasc - NGT Not Given DAILY [facility]EL[facility]HA Metronidazole 250 mg in 50 mls @ 50 mls/hr 07/21/18 21:45 07/25/18 10:45 Flagyl 250mg Premixed Ivpb - IVPB Not Given Q8H-IV FELISHA Dextrose/Sodium Chloride 20 meq in 1,000 mls @ 50 mls/hr 07/24/18 08:29 07/25 10:45 Dextrose 5%-Normal Saline+20 Meq Kcl - IV Not Given ASDIR FELISHA Mineral Oil 30 ml 07/17/18 01:28 Mineral Oil - PO Q8H PRN DRYNESS Mirtazapine 45 mg 07/13/18 22:00 07/24/18 23:14 Remeron - PO 45 mg HS FELISHA Administration Olanzapine 5 mg 07/13/18 22:00 07/24/18 22:47 Zyprexa - PO 5 mg HS FELISHA Administration Phenytoin Sodium 100 mg 07/14/18 10:30 07/24/18 23:13 Dilantin Injection - IVPB Not Given BID FELISHA Phenytoin Sodium 200 mg 07/22/18 22:00 07/25/18 10:45 Dilantin Oral Suspension - NGT Not Given BID FELISHA Risperidone 1 mg 07/14/18 10:00 07/25/18 10:44 Risperdal - PO 1 mg DAILY [facility]EL[facility]HA Administration Vancomycin HCl 125 mg 07/22/18 18:00 07/25/18 06:42 Vancomycin Oral Solution NGT Not Given Q6HPO FELISHA Impression 1. hypernatremia 2. hypothyroidism 3. failure to thrive 4. malnutrition 5. depression 6. htn 7. hypokalemia Plan - pt does not have IV access, can resume fluids when IV established - family discussing GOC - peg on hold for now - will follow
[2018-07-25] MEDS ORDERED: PT OWN MED DRAWER 7, Y5N ONE ×2 (19:17→20:26)
[2018-07-25] MEDS: PHENYTOIN SODIUM 100 MG/2 ML VIAL IVPB SCH (21:03)
[2018-07-25] MEDS: OLANZapine 5 MG TABLET PO SCH (21:04)
[2018-07-25] MEDS: MIRTAZAPINE 15 MG TABLET (FP) PO SCH (21:04)
[2018-07-26] MEDS: VANCOMYCIN 250 MG/5 ML ORAL SOLUTION NGT SCH ×3 (01:57→14:48)
[2018-07-26] MEDS: D5-NS + 20 MEQ KCL - 20 MEQ/1,000 ML INFUS.BAG IV SCH ×2 (06:38→10:25)
[2018-07-26 07:40] LABS: BASO % 1.3 % (0-2.0); EOS % 1.1 % (0-4.5); HEMATOCRIT 32.6 % (35.4-49); HEMOGLOBIN 10.5 GM/dL (11.7-16.9); LYMPH % 22.9 % (8-40); MCH 30.2 pg (25.7-33.7); MCHC 32.3 g/dl (32.0-35.9); MEAN CELL VOLUME 93.8 fl (80-96); MEAN PLT VOLUME 8.7 fl (7.5-11.1); MONO % 14.7 % (3.8-10.2); PLATELET COUNT 145 K/MM3 (134-434); RBC 3.48 M/mm3 (4.00-5.60); WHITE BLOOD COUNT 4.3 K/mm3 (4.0-10.0)
[2018-07-26 08:06] LABS: ALK PHOS 103 U/L (45-117); ANION GAP 10 MMOL/L (8-16); BILIRUBIN,TOTAL 0.5 mg/dL (0.2-1); BLOOD UREA NITROGEN 7 mg/dL (7-18); CALCIUM 7.5 mg/dL (8.5-10.1); CHLORIDE 105 mmol/L (98-107); CO2 26 mmol/L (21-32); CREATININE 0.3 mg/dL (0.55-1.3); GLUCOSE,RANDOM 89 mg/dL (74-106); SGOT/AST 15 U/L (15-37); SGPT/ALT 15 U/L (13-61); SODIUM 141 mmol/L (136-145); TOT PROT 5.6 g/dl (6.4-8.2)
[2018-07-26] MEDS ORDERED: PT OWN MED DRAWER 7, Y5N ONE ×2 (10:19→10:46)
[2018-07-26] MEDS: AMINO ACIDS/PROTEIN HYDROLYS 30 ML LIQUID.PKT PO SCH (10:25)
[2018-07-26] MEDS: PHENYTOIN SODIUM 100 MG/2 ML VIAL IVPB SCH (10:25)
[2018-07-26] MEDS: amLODIPine BESYLATE 10 MG TABLET (FP) NGT SCH (10:29)
[2018-07-26] MEDS: risperiDONE 1 MG TABLET (FP) PO SCH (10:30)
--- NOTE | 2018-07-26 11:51 | PN ---
Progress Note, Physician History of Present Illness: patient stable much more awake and alert has pulled out ng tube - Current Medication List Current Medications: Active Medications Acetaminophen (Tylenol Oral Solution -) 500 mg NGT Q4H PRN PRN Reason: PAIN OR FEVER Amino Acids (Prosource No Carb Liquid Pkt) 30 ml PO BID@0800,1730 [facility] Last Admin: 07/26/18 10:25 Dose: Not Given Amlodipine Besylate (Norvasc -) 10 mg NGT DAILY [facility] Last Admin: 07/26/18 10:29 Dose: Not Given Metronidazole (Flagyl 250mg Premixed Ivpb -) 250 mg in 50 mls @ 50 mls/hr IVPB Q8H-IV [facility] Last Admin: 07/26/18 10:24 Dose: 50 mls/hr Dextrose/Sodium Chloride (Dextrose 5%-Normal Saline+20 Meq Kcl -) 20 meq in 1, 000 mls @ 50 mls/hr IV ASDIR [facility] Last Admin: 07/26/18 10:25 Dose: Not Given Mineral Oil (Mineral Oil -) 30 ml PO Q8H PRN PRN Reason: DRYNESS Mirtazapine (Remeron -) 45 mg PO HS [facility] Last Admin: 07/25/18 21:04 Dose: Not Given Olanzapine (Zyprexa -) 5 mg PO HS [facility] Last Admin: 07/25/18 21:04 Dose: Not Given Phenytoin Sodium (Dilantin Injection -) 100 mg IVPB BID [facility] Last Admin: 07/26/18 10:25 Dose: 100 mg Risperidone (Risperdal -) 1 mg PO DAILY [facility] Last Admin: 07/26/18 10:30 Dose: Not Given Vancomycin HCl (Vancomycin Oral Solution) 125 mg NGT Q6HPO [facility] Last Admin: 07/26/18 06:47 Dose: Not Given - Objective Vital Signs: Vital Signs Temperature 97.4 F L 07/26/18 06:30 Pulse Rate 89 07/26/18 06:30 Respiratory Rate 20 07/26/18 06:30 Blood Pressure 122/87 07/26/18 06:30 O2 Sat by Pulse Oximetry (%) 97 07/25/18 21:00 Constitutional: Yes: No Distress, Calm, Thin, Other (failure to thrive) Cardiovascular: Yes: Regular Rate and Rhythm Respiratory: Yes: Regular, CTA Bilaterally Gastrointestinal: Yes: Normal Bowel Sounds, Soft Musculoskeletal: Yes: WNL Extremities: Yes: WNL Neurological: Yes: Alert, Oriented Psychiatric: Yes: Alert, Oriented Labs: CBC, BMP 07/26/18 06:30 07/26/18 06:30 INR, PTT INR 1.39 (0.83-1.09) H 07/25/18 06:30 Assessment/Plan Problem List - Problems (1) Malnutrition Code(s): E46 - UNSPECIFIED PROTEIN-CALORIE MALNUTRITION Qualifiers: Malnutrition type: protein-calorie malnutrition Protein-calorie malnutrition severity: severe Qualified Code(s): E43 - Unspecified severe protein-calorie malnutrition (2) Failure to thrive Code(s): [id number] - Qualifiers: Failure to thrive age range: in adult Qualified Code(s): R62.7 - Adult failure to thrive (3) Sepsis Code(s): A41.9 - SEPSIS, UNSPECIFIED ORGANISM (4) Aspiration into respiratory tract Code(s): T17.908A - UNSP FB IN RESP TRACT, PART UNSP CAUSING OTH INJURY, INIT cdiff plan continue current mgmt nutrition rest as per the team
--- NOTE | 2018-07-26 13:29 | PN ---
Progress Note, Physician History of Present Illness: Pt seen and examined at bedside. No great change. IV was placed and he is getting fluids. - Current Medication List Current Medications: Active Medications Acetaminophen (Tylenol Oral Solution -) 500 mg NGT Q4H PRN PRN Reason: PAIN OR FEVER Amino Acids (Prosource No Carb Liquid Pkt) 30 ml PO BID@0800,1730 [facility] Last Admin: 07/26/18 10:25 Dose: Not Given Amlodipine Besylate (Norvasc -) 10 mg NGT DAILY [facility] Last Admin: 07/26/18 10:29 Dose: Not Given Metronidazole (Flagyl 250mg Premixed Ivpb -) 250 mg in 50 mls @ 50 mls/hr IVPB Q8H-IV [facility] Last Admin: 07/26/18 10:24 Dose: 50 mls/hr Dextrose/Sodium Chloride (Dextrose 5%-Normal Saline+20 Meq Kcl -) 20 meq in 1, 000 mls @ 50 mls/hr IV ASDIR [facility] Last Admin: 07/26/18 10:25 Dose: Not Given Mineral Oil (Mineral Oil -) 30 ml PO Q8H PRN PRN Reason: DRYNESS Mirtazapine (Remeron -) 45 mg PO HS [facility] Last Admin: 07/25/18 21:04 Dose: Not Given Olanzapine (Zyprexa -) 5 mg PO HS [facility] Last Admin: 07/25/18 21:04 Dose: Not Given Phenytoin Sodium (Dilantin Injection -) 100 mg IVPB BID [facility] Last Admin: 07/26/18 10:25 Dose: 100 mg Risperidone (Risperdal -) 1 mg PO DAILY [facility] Last Admin: 07/26/18 10:30 Dose: Not Given Vancomycin HCl (Vancomycin Oral Solution) 125 mg NGT Q6HPO [facility] Last Admin: 07/26/18 06:47 Dose: Not Given - Objective Vital Signs: Vital Signs Temperature 97.6 F 07/26/18 10:00 Pulse Rate 99 H 07/26/18 10:00 Respiratory Rate 18 07/26/18 10:00 Blood Pressure 129/90 07/26/18 10:00 O2 Sat by Pulse Oximetry (%) 97 07/25/18 21:00 Constitutional: Yes: Calm Eyes: Yes: Conjunctiva Clear Cardiovascular: Yes: S1, S2 Respiratory: Yes: On Nasal O2 Gastrointestinal: Yes: Soft Genitourinary: Yes: Incontinence Musculoskeletal: Yes: Muscle Weakness Edema: No Neurological: Yes: Lethargy Labs: CBC, BMP 07/26/18 06:30 07/26/18 06:30 INR, PTT INR 1.39 (0.83-1.09) H 07/25/18 06:30 Problem List - Problems (1) Hypernatremia Code(s): E87.0 - HYPEROSMOLALITY AND HYPERNATREMIA (2) Failure to thrive Code(s): CQH4203 - Qualifiers: Failure to thrive age range: in adult Qualified Code(s): R62.7 - Adult failure to thrive (3) Malnutrition Code(s): E46 - UNSPECIFIED PROTEIN-CALORIE MALNUTRITION Qualifiers: Malnutrition type: protein-calorie malnutrition Protein-calorie malnutrition severity: severe Qualified Code(s): E43 - Unspecified severe protein-calorie malnutrition (4) Pneumonia Code(s): J18.9 - PNEUMONIA, UNSPECIFIED ORGANISM Assessment/Plan Current Medications Generic Name Dose Route Start Last Admin Trade Name Freq PRN Reason Stop Dose Admin Acetaminophen 500 mg 07/22/18 14:38 Tylenol Oral Solution - NGT Q4H PRN PAIN OR FEVER Amino Acids 30 ml 07/22/18 17:30 07/26/18 10:25 Prosource No Carb Liquid Pkt PO Not Given BID@0800,1730 [facility] Amlodipine Besylate 10 mg 07/23/18 10:00 07/26/18 10:29 Norvasc - NGT Not Given DAILY [facility] Metronidazole 250 mg in 50 mls @ 50 mls/hr 07/21/18 21:45 07/26/18 10:24 Flagyl 250mg Premixed Ivpb - IVPB 50 mls/hr Q8H-IV [facility] Administration Dextrose/Sodium Chloride 20 meq in 1,000 mls @ 50 mls/hr 07/24/18 08:29 07/26 10:25 Dextrose 5%-Normal Saline+20 Meq Kcl - IV Not Given ASDIR [facility] Mineral Oil 30 ml 07/17/18 01:28 Mineral Oil - PO Q8H PRN DRYNESS Mirtazapine 45 mg 07/13/18 22:00 07/25/18 21:04 Remeron - PO Not Given HS [facility] Olanzapine 5 mg 07/13/18 22:00 07/25/18 21:04 Zyprexa - PO Not Given HS [facility] Phenytoin Sodium 100 mg 07/25/18 22:00 07/26/18 10:25 Dilantin Injection - IVPB 100 mg BID [facility] Administration Risperidone 1 mg 07/14/18 10:00 07/26/18 10:30 Risperdal - PO Not Given DAILY [facility] Vancomycin HCl 125 mg 07/22/18 18:00 07/26/18 06:47 Vancomycin Oral Solution NGT Not Given Q6HPO [facility] Impression 1. hypernatremia 2. hypothyroidism 3. failure to thrive 4. malnutrition 5. depression 6. htn 7. hypokalemia Plan - discussed with nursing staff - can cont fluids until GOC are clarified - peg tube on hold for now - pt pulled out the NG tube - will follow
--- NOTE | 2018-07-26 13:55 | DS ---
Physical Examination Vital Signs: Vital Signs Temperature 97.6 F 07/26/18 10:00 Pulse Rate 99 H 07/26/18 10:00 Respiratory Rate 18 07/26/18 10:00 Blood Pressure 129/90 07/26/18 10:00 O2 Sat by Pulse Oximetry (%) 97 07/25/18 21:00 Findings/Remarks: RODRIGO HAS DENIED FOR HOSPICE AND WILL BE SENT TO [facility] FOR PALLIAITVE CARE AND CAN BE TRANSFERRED FROM THERE TO A SNF CLOSER TO HIS BROTHER IN [place]. Constitutional: Yes: Mild Distress Eyes: Yes: Other Cardiovascular: Yes: Regular Rate and Rhythm Respiratory: Yes: Diminished, On Nasal O2 Gastrointestinal: Yes: Hernia, Other Musculoskeletal: Yes: Muscle Weakness Edema: No Peripheral Pulses WNL: Yes Integumentary: Yes: Other Wound/Incision: Yes: Other Neurological: Yes: Aphasia, Pre-Existing Deficit, Unsteady Gait, Weakness ...Motor Strength: LLE, RLE Labs: CBC, BMP 07/26/18 06:30 07/26/18 06:30 Discharge Summary Reason For Visit: PNEUMONIA Current Active Problems Aspiration into respiratory tract (Acute) Aspiration pneumonia (Acute) Failure to thrive (Acute) Hydrocephalus (Acute) Hypokalemia (Acute) Incarcerated hiatal hernia (Acute) Malnutrition (Acute) Pneumonia (Acute) Sepsis (Acute) Procedures: Principal: CT SCAN Hospital Course: ADMITTED FOR GTUBE, PATIENT EXTREMELY WEAK AND SEPTIC CONSIDERED HIGH RISK FOR PROEDURE AND POSTOP COMPLICATIONS, PATIENT CHANGED TO PALLIATIVE CARE AND WILL TRANSFERRED TO [facility] SNF. DISCUSSED WITH HIS BROTHER STEPHANIE AND HE IS IN FULL AGREMMENT WITH THIS. Condition: Poor - Instructions Diet, Activity, Other Instructions: ORAL INTAKE TOLERATED Referrals: Davis Sanchez [Primary Care Provider] - Disposition: [facility]ILITY - Home Medications Comprehensive Discharge Medication List: Ambulatory Orders Amlodipine Besylate [Norvasc -] 10 mg PO DAILY 07/13/18 Olanzapine [Zyprexa] 5 mg PO HS 07/13/18 Phenytoin Oral Suspension [Dilantin Oral Suspension 100 MG/4 ML] 200 mg PO BID 07/13/18 Risperidone [Risperdal] 1 mg PO DAILY 07/13/18 Amino Acids/Protein Hydrolys [Prosource No Carb Liquid Pkt] 30 ml PO BID@0800, 1730 packet 07/26/18 Mineral Oil - 30 ml PO Q8H PRN cup 07/26/18 Mirtazapine [Remeron -] 45 mg PO HS tablet 07/26/18 Olanzapine [Zyprexa -] 5 mg PO HS tablet 07/26/18 Risperidone [Risperdal -] 1 mg PO DAILY tablet 07/26/18
[2018-07-26 17:16] VITALS: BP 118/84; PULSE 96; TEMP 98.9
== END 2018-07-26 18:28 | DRG 177 ==
LOC: JER 12:07 → JERBED 14:01 → J8W 17:01
PROVIDERS: ADMIT Family Medicine; ATTEND Family Medicine
PROC: 0DH63UZ Insertion of Feeding Device into Stomach, Percutaneous Approach (ICD-10-PCS; principal; 2018-07-18)
DX: J69.0 Pneumonitis due to inhalation of food and vomit (principal); A41.9 Sepsis, unspecified organism; E43 Unspecified severe protein-calorie malnutrition; K44.0 Diaphragmatic hernia with obstruction, without gangrene; E87.0 Hyperosmolality and hypernatremia; Z68.1 Body mass index [BMI] 19.9 or less, adult; G91.9 Hydrocephalus, unspecified; A04.72 Enterocolitis due to Clostridium difficile, not specified as recurrent; R64 Cachexia; R62.7 Adult failure to thrive; E87.6 Hypokalemia; F32.9 Major depressive disorder, single episode, unspecified; I10 Essential (primary) hypertension; D72.829 Elevated white blood cell count, unspecified; E03.9 Hypothyroidism, unspecified
CPT/HCPCS: 36415; 49440; 71045-TC-FY; 74018-TC-FY; 74178-TC; 80048; 80053; 80185; 81003; 81015; 82378; 82550; 83605; 83735; 84100; 84439; 84443; 84484; 85025; 85027; 85610; 85730; 86301; 86850; 86900; 86901; 87040; 87086; 87324; 87449; 90670; 90688; 93005; 93010; 99282-25; G0008; G0009; J2794; J7030